=== PATIENT | male | born 2000 | race Hispanic/Latino ===

== ENCOUNTER 2018-06-27 07:41 | Emergency (ER) | payer OTHER ==
--- OUTSIDE RECORDS SUMMARY | 2018-06-27 07:43 | XMS REPORT ---
:2000 [facility] Address [address] Quach [address] [place] [id number] Care Team Providers Name Role Phone Unavailable Unavailable Unavailable Problems This patient has no known problems. Allergies, Adverse Reactions, Alerts This patient has no known allergies or adverse reactions. Medications This patient has no known medications. Encounters Start End Encounter Admission Attending Care Care Encounter Date/Time Date/Time Type Type Clinicians Facility Department ID 2017-05-02 2017-05-02 Outpatient [facility] [id number] 00:00:00 00:00:00 2017-04-18 2017-04-18 Outpatient [facility] [id number] 00:00:00 00:00:00 2017-03-21 2017-03-21 Emergency [facility] [id number] 22:44:59 22:44:59 2017-03-21 2017-03-21 Emergency [facility] [id number] 21:04:42 21:04:42
[2018-06-27] MEDS ORDERED: NA CHLORIDE 0.9% 1,000 ML ONE (08:18)
[2018-06-27 08:32] LABS: Absolute Lymphocytes (CBC) 2.2 K/uL (0.7-4.9); Absolute Monocytes 0.5 K/uL (0.1-1.3); Absolute Neutrophil 3.3 K/uL (1.8-8.0); Basophils % 0.9 % (0-1.3); Eosinophils % 1.5 % (0-4.4); Hematocrit 45.7 % (39.6-49.0); Lymphocytes % 35.8 % (15.3-44.8); MCH 29.2 pg (27.0-35.0); MCV 84.1 fL (80-100); MPV 7.7 fL (7.6-11.3); Monocytes % 8.5 % (3.3-12.3); RBC Red Blood Cell Count 5.44 M/uL (4.33-5.43)
[2018-06-27 08:49] LABS: BUN Blood Urea Nitrogen 17 mg/dL (7-18); Bicarbonate 26 mmol/L (21-32); Glucose Level 109 mg/dL (74-106); Potassium 3.8 mmol/L (3.5-5.1); Sodium Level 138 mmol/L (136-145)
--- NOTE | 2018-06-27 09:24 | EDPHYS ---
Physician Documentation [facility] Name: Britton Fontanez Age: 17 yrs Sex: Male : 2000 Arrival Date: 06/27/2018 Time: 07:43 Bed 5 Private MD: ED Physician Isra Cameron HPI: 06/27 09:20 This 17 yrs old Male presents to ER via Ambulatory with complaints of kb Nausea/Vomiting/Diarrhea, Headache. 09:20 The patient presents to the emergency department with nausea, vomiting, diarrhea, kb abdominal pain, of the abdomen diffusely. Onset: The symptoms/episode began/occurred last night. Possible causes: unknown. The symptoms are aggravated by nothing. The symptoms are alleviated by nothing. Associated signs and symptoms: Pertinent positives: abdominal pain, diarrhea, nausea, vomiting. Severity of symptoms: At their worst the symptoms were moderate in the emergency department the symptoms have improved moderately. The patient has not experienced similar symptoms in the past. The patient has not recently seen a physician. Pt reports headache, n/v/d, abd pain, and malaise since last night. States the pain and vomiting have subsided.. Historical: - Allergies: 08:03 No Known Allergies; ph - Home Meds: 08:03 unknown anxiety med [Active]; ph - PMHx: 08:03 Anxiety; ADD/ADHD; ph - PSHx: 08:03 None; ph - Immunization history:: Adult Immunizations up to date. - Social history:: Smoking status: Patient/guardian denies using tobacco. - Ebola Screening: : Patient negative for fever greater than or equal to 101.5 degrees Fahrenheit, and additional compatible Ebola Virus Disease symptoms Patient denies exposure to infectious person Patient denies travel to an Ebola-affected area in the 21 days before illness onset No symptoms or risks identified at this time. ROS: 09:16 ENT: Negative for injury, pain, and discharge, Neck: Negative for injury, pain, and kb swelling, Cardiovascular: Negative for chest pain, palpitations, and edema, Respiratory: Negative for shortness of breath, cough, wheezing, and pleuritic chest pain, Back: Negative for injury and pain, : Negative for injury, bleeding, discharge, and swelling, MS/Extremity: Negative for injury and deformity, Skin: Negative for injury, rash, and discoloration. 09:16 Constitutional: Positive for chills, fatigue, malaise, Negative for body aches, fever, poor PO intake, weight loss. 09:16 Abdomen/GI: Positive for abdominal pain, nausea, vomiting, and diarrhea, Negative for constipation, abdominal cramps, abdominal distension, anorexia. 09:16 Neuro: Positive for headache. Exam: 09:20 Constitutional: This is a well developed, well nourished patient who is awake, alert, kb and in no acute distress. Head/Face: Normocephalic, atraumatic. ENT: Nares patent. No nasal discharge, no septal abnormalities noted. Tympanic membranes are normal and external auditory canals are clear. Oropharynx with no redness, swelling, or masses, exudates, or evidence of obstruction, uvula midline. Mucous membranes moist. Neck: Trachea midline, no thyromegaly or masses palpated, and no cervical lymphadenopathy. Supple, full range of motion without nuchal rigidity, or vertebral point tenderness. No Meningismus. Chest/axilla: Normal chest wall appearance and motion. Nontender with no deformity. No lesions are appreciated. Cardiovascular: Regular rate and rhythm with a normal S1 and S2. No gallops, murmurs, or rubs. Normal PMI, no JVD. No pulse deficits. Respiratory: Lungs have equal breath sounds bilaterally, clear to auscultation and percussion. No rales, rhonchi or wheezes noted. No increased work of breathing, no retractions or nasal flaring. Abdomen/GI: Soft, non-tender, with normal bowel sounds. No distension or tympany. No guarding or rebound. No evidence of tenderness throughout. Skin: Warm, dry with normal turgor. Normal color with no rashes, no lesions, and no evidence of cellulitis. MS/ Extremity: Pulses equal, no cyanosis. Neurovascular intact. Full, normal range of motion. Neuro: Awake and alert, GCS 15, oriented to person, place, time, and situation. Cranial nerves II-XII grossly intact. Motor strength 5/5 in all extremities. Sensory grossly intact. Cerebellar exam normal. Normal gait. Vital Signs: 08:02 BP 136 / 91; Pulse 65; Resp 18; Temp 98.0; Pulse Ox 99% on R/A; Weight 92.08 kg; Height ph 5 ft. 8 in. (172.72 cm); 08:15 BP 132 / 89 Standing; Pulse 72; sg 09:07 BP 118 / 74; Pulse 62; Resp 14; Pulse Ox 100% on R/A; Pain 4/10; sg 08:02 Body Mass Index 30.87 (92.08 kg, 172.72 cm) ph MDM: 07:49 Patient medically screened. kb 09:16 Data reviewed: vital signs, nurses notes. Data interpreted: Pulse oximetry: on room air kb is 100 %. Interpretation: normal. 09:23 Counseling: I had a detailed discussion with the patient and/or guardian regarding: the kb historical points, exam findings, and any diagnostic results supporting the discharge/admit diagnosis, lab results, the need for outpatient follow up, a family practitioner, to return to the emergency department if symptoms worsen or persist or if there are any questions or concerns that arise at home. 06/27 08:02 Order name: Basic Metabolic Panel; Complete Time: 08:50 kb 06/27 08:02 Order name: CBC with Diff; Complete Time: 08:40 kb 06/27 08:02 Order name: IV Saline Lock; Complete Time: 08:08 kb 06/27 08:02 Order name: Labs collected and sent; Complete Time: 08:08 kb 06/27 08:07 Order name: Blair Screen Profile; Complete Time: 08:50 kb 06/27 08:02 Order name: Orthostatics; Complete Time: 08:47 kb 06/27 09:08 Order name: PO challenge; Complete Time: 09:32 kb Administered Medications: 08:22 Drug: NS 0.9% 1000 ml Route: IV; Rate: 1000 ml; Site: left antecubital; sg 09:00 Follow up: IV Status: Completed infusion; IV Intake: 1000ml sg Disposition: 10:27 Co-signature as Attending Physician, Isra Cameron MD. rn Disposition: 06/27/18 09:24 Discharged to Home. Impression: Nausea with vomiting, unspecified, Diarrhea, unspecified. - Condition is Stable. - Discharge Instructions: Food Choices to Help Relieve Diarrhea, Adult, Viral Gastroenteritis, Adult, [id number], Nausea and Vomiting, Adult, [id number], Diarrhea, Adult, [id number]-wd-[id number]. - Medication Reconciliation Form, Thank You Letter, Antibiotic Education, Prescription Opioid Use, Work release form form. - Follow up: Emergency Department; When: As needed; Reason: Worsening of condition. Follow up: Private Physician; When: 2 - 3 days; Reason: Recheck today's complaints, Continuance of care, Re-evaluation by your physician. Signatures: Dispatcher [employer] EDCandice Kinney, EZEKIEL SHAH-Khadar Lopes RN RN sg Isra Cameron MD MD rn Melinda Quinteros RN RN ph Corrections: (The following items were deleted from the chart) 09:39 09:24 06/27/2018 09:24 Discharged to Home. Impression: Nausea with vomiting, sg unspecified; Diarrhea, unspecified. Condition is Stable. Forms are Medication Reconciliation Form, Thank You Letter, Antibiotic Education, Prescription Opioid Use. Follow up: Emergency Department; When: As needed; Reason: Worsening of condition. Follow up: Private Physician; When: 2 - 3 days; Reason: Recheck today's complaints, Continuance of care, Re-evaluation by your physician. kb
--- NOTE | 2018-06-27 09:24 | ER ---
Nurse's Notes [facility] Name: Britton Fontanez Age: 17 yrs Sex: Male : 2000 Arrival Date: 06/27/2018 Time: 07:43 Bed 5 Private MD: Diagnosis: Nausea with vomiting, unspecified;Diarrhea, unspecified Presentation: 06/27 08:02 Presenting complaint: Patient states: N/V/D and lower abdominal pain since last night. ph Transition of care: patient was not received from another setting of care. Onset of symptoms was June 27, 2018. Risk Assessment: Do you want to hurt yourself or someone else? Patient reports no desire to harm self or others. Initial Sepsis Screen: Does the patient meet any 2 criteria? No. Patient's initial sepsis screen is negative. Does the patient have a suspected source of infection? No. Patient's initial sepsis screen is negative. Care prior to arrival: None. 08:02 Method Of Arrival: Ambulatory 08:02 Acuity: KAMERON 3 ph Historical: - Allergies: 08:03 No Known Allergies; ph - Home Meds: 08:03 unknown anxiety med [Active]; ph - PMHx: 08:03 Anxiety; ADD/ADHD; ph - PSHx: 08:03 None; ph - Immunization history:: Adult Immunizations up to date. - Social history:: Smoking status: Patient/guardian denies using tobacco. - Ebola Screening: : Patient negative for fever greater than or equal to 101.5 degrees Fahrenheit, and additional compatible Ebola Virus Disease symptoms Patient denies exposure to infectious person Patient denies travel to an Ebola-affected area in the 21 days before illness onset No symptoms or risks identified at this time. Screenin:23 Abuse screen: Denies threats or abuse. Denies injuries from another. Nutritional sg screening: No deficits noted. Tuberculosis screening: No symptoms or risk factors identified. Never had TB. Fall Risk None identified. Assessment: 08:23 General: Appears in no apparent distress. comfortable, well groomed, well developed, sg well nourished, Behavior is calm, cooperative, appropriate for age. Pain: Complains of pain in head Quality of pain is described as throbbing. Neuro: Level of Consciousness is awake, alert, obeys commands, Oriented to person, place, time, situation, [employer] are equal bilaterally Moves all extremities. Full function Gait is steady, Speech is normal, Facial symmetry appears normal, Reports headache in entire frontal area. Cardiovascular: Capillary refill is brisk in bilateral fingers Patient's skin is warm and dry. Respiratory: Airway is patent Respiratory effort is even, unlabored, Respiratory pattern is regular, symmetrical. GI: Abdomen is round non-distended, Bowel sounds present X 4 quads. Abd is soft and non tender X 4 quads. Reports diarrhea, nausea, vomiting. : No signs and/or symptoms were reported regarding the genitourinary system. EENT: No signs and/or symptoms were reported regarding the EENT system. Derm: Skin is pink, warm \T\ dry. Musculoskeletal: No signs and/or symptoms reported regarding the musculoskeletal system. Vital Signs: 08:02 BP 136 / 91; Pulse 65; Resp 18; Temp 98.0; Pulse Ox 99% on R/A; Weight 92.08 kg; Height ph 5 ft. 8 in. (172.72 cm); 08:15 BP 132 / 89 Standing; Pulse 72; sg 09:07 BP 118 / 74; Pulse 62; Resp 14; Pulse Ox 100% on R/A; Pain 4/10; sg 08:02 Body Mass Index 30.87 (92.08 kg, 172.72 cm) ph ED Course: 07:43 Patient arrived in ED. as 07:45 Candice Ramirez FNP-C is [facility]. kb 07:45 Isra Cameron MD is Attending Physician. kb 08:01 Khadar Kwong, RN is Primary Nurse. sg 08:02 Triage completed. ph 08:04 Arm band placed on Patient placed in an exam room, on a stretcher. ph 08:23 Initial lab(s) drawn, by il, sent to lab. Inserted saline lock: 20 gauge in left sg antecubital area, using aseptic technique. Blood collected. 08:25 Patient has correct armband on for positive identification. Bed in low position. Call sg light in reach. Pulse ox on. NIBP on. 09:35 No provider procedures requiring assistance completed. IV discontinued, intact, sg bleeding controlled, No redness/swelling at site. Pressure dressing applied. Administered Medications: 08:22 Drug: NS 0.9% 1000 ml Route: IV; Rate: 1000 ml; Site: left antecubital; sg 09:00 Follow up: IV Status: Completed infusion; IV Intake: 1000ml sg Intake: 09:00 IV: 1000ml; Total: 1000ml. sg Outcome: 09:24 Discharge ordered by . stacie 09:35 Discharged to home ambulatory, with family. sg 09:35 Condition: good 09:35 Discharge instructions given to patient, Instructed on discharge instructions, follow up and referral plans. safety practices, Demonstrated understanding of instructions, follow-up care. 09:39 Patient left the ED. sg Signatures: Candice Ramirez FNP-Pérez SHAH-Khadar Lopes, RN RN sg Soo Deleon Patricia, RN RN ph
== END 2018-06-27 09:39 | disposition home or self-care (01) ==
LOC: ER 07:41
DX: R19.7 Diarrhea, unspecified (principal); F41.9 Anxiety disorder, unspecified
CPT/HCPCS: 36415; 80048; 85025; 86308; 96360; 99284; J7030

== ENCOUNTER 2018-08-13 21:42 | Emergency (ER) | payer OTHER ==
--- OUTSIDE RECORDS SUMMARY | 2018-08-13 21:46 | XMS REPORT ---
:2000 [facility] Address [address] Quach [address] [place] [id number] Care Team Providers Name Role Phone Unavailable Unavailable Unavailable Problems This patient has no known problems. Allergies, Adverse Reactions, Alerts This patient has no known allergies or adverse reactions. Medications This patient has no known medications. Encounters Start End Encounter Admission Attending Care Care Encounter Date/Time Date/Time Type Type Clinicians Facility Department ID 2017-05-02 2017-05-02 Outpatient [facility] [id number] 00:00:00 00:00:00 2017-04-18 2017-04-18 Outpatient [facility] [id number] 00:00:00 00:00:00 2017-03-21 2017-03-21 Emergency [facility] [id number] 22:44:59 22:44:59 2017-03-21 2017-03-21 Emergency [facility] [id number] 21:04:42 21:04:42
[2018-08-13] MEDS ORDERED: NA CHLORIDE 0.9% 1,000 ML ONE (23:21)
[2018-08-14 00:19] LABS: Absolute Lymphocytes (CBC) 2.3 K/uL (0.7-4.9); Absolute Monocytes 0.8 K/uL (0.1-1.3); Absolute Neutrophil 8.2 K/uL (1.8-8.0); Basophils % 0.4 % (0-1.3); Eosinophils % 0.7 % (0-4.4); Hematocrit 44.6 % (39.6-49.0); Lymphocytes % 19.9 % (15.3-44.8); MPV 8.6 fL (7.6-11.3); RBC Red Blood Cell Count 5.28 M/uL (4.33-5.43)
[2018-08-14 00:28] LABS: Barbiturates NEGATIVE (NEGATIVE); Benzodiazepines NEGATIVE (NEGATIVE); Cocaine NEGATIVE (NEGATIVE); METHAMPHETAM NEGATIVE (NEGATIVE); Methadone NEGATIVE (NEGATIVE); Opiates NEGATIVE (NEGATIVE); Phencyclidine NEGATIVE (NEGATIVE); THC Cannibis NEGATIVE (NEGATIVE)
[2018-08-14 00:50] LABS: Protime INR 1.1
[2018-08-14 00:56] LABS: ALT/SGPT 36 U/L (12-78); AST/SGOT 18 U/L (15-37); Alkaline Phosphatase 74 U/L (45-117); BUN Blood Urea Nitrogen 13 mg/dL (7-18); Bicarbonate 23 mmol/L (21-32); Bilirubin Direct < 0.1 mg/dL (0-0.2); Bilirubin Total 0.3 mg/dL (0.2-1.0); Glucose Level 96 mg/dL (74-106); Lipase 100 U/L (73-393); Magnesium 2.2 mg/dL (1.8-2.4); NT PRO-BNP 5 pg/mL (<125); Potassium 3.5 mmol/L (3.5-5.1); Protein, Total 7.5 g/dL (6.4-8.2); Sodium Level 140 mmol/L (136-145); Troponin (Emerg Dept Use Only) < 0.02 ng/mL (0.0-0.045)
[2018-08-14 01:28] LABS: Urine Blood NEGATIVE (NEG); Urine Glucose NEGATIVE (NEG); Urine pH 7.5 (5.0-7.0)
[2018-08-14 01:29] LABS: Urine Protein NEGATIVE (NEG)
--- NOTE | 2018-08-14 02:05 | EDPHYS ---
Physician Documentation [facility] Name: Britton Fontaenz Age: 18 yrs Sex: Male : 2000 Arrival Date: 08/13/2018 Time: 21:46 Bed 28 Private MD: Alexi Hannon H ED Physician Matt Sumner HPI: 08/14 00:26 This 18 yrs old Male presents to ER via Ambulatory with complaints of thelma Abdominal Pain, described symptoms of a stroke. 00:26 The patient presents with abdominal pain. Onset: The symptoms/episode began/occurred thelma just prior to arrival. The patient's problem is reported as dysphasia. Onset: The symptoms/episode began/occurred just prior to arrival. Duration: This was a single incident. The symptoms are alleviated by rest, The symptoms are aggravated by. Associated signs and symptoms: Pertinent positives: dizziness, numbness, anxious. Historical: - Allergies: 08/13 22:04 No Known Allergies; fc - Home Meds: 22:04 unable to obtain [Active]; fc - PMHx: 22:04 ADD/ADHD; Anxiety; fc - PSHx: 22:04 None; fc - Immunization history:: Last tetanus immunization: unknown, Flu vaccine is up to date. - Social history:: Smoking status: Patient uses tobacco products, denies chronic smoking, but will smoke occasionally, Patient/guardian denies using alcohol, street drugs. - Ebola Screening: : Patient negative for fever greater than or equal to 101.5 degrees Fahrenheit, and additional compatible Ebola Virus Disease symptoms. - Family history:: not pertinent. ROS: 08/14 00:26 Constitutional: Negative for fever, chills, and weight loss, Eyes: Negative for injury, thelma pain, redness, and discharge, ENT: Negative for injury, pain, and discharge, Neck: Negative for injury, pain, and swelling, Cardiovascular: Negative for chest pain, palpitations, and edema, Respiratory: Negative for shortness of breath, cough, wheezing, and pleuritic chest pain, Abdomen/GI: Negative for abdominal pain, nausea, vomiting, diarrhea, and constipation, Back: Negative for injury and pain, : Negative for injury, bleeding, discharge, and swelling, MS/Extremity: Negative for injury and deformity, Skin: Negative for injury, rash, and discoloration, Neuro: Negative for headache, weakness, numbness, tingling, and seizure, Psych: Negative for depression, anxiety, suicide ideation, homicidal ideation, and hallucinations, Allergy/Immunology: Negative for hives, rash, and allergies, Endocrine: Negative for neck swelling, polydipsia, polyuria, polyphagia, and marked weight changes. Exam: 00:26 Constitutional: This is a well developed, well nourished patient who is awake, alert, thelma and in no acute distress. Head/Face: Normocephalic, atraumatic. Eyes: Pupils equal round and reactive to light, extra-ocular motions intact. Lids and lashes normal. Conjunctiva and sclera are non-icteric and not injected. Cornea within normal limits. Periorbital areas with no swelling, redness, or edema. ENT: Nares patent. No nasal discharge, no septal abnormalities noted. Tympanic membranes are normal and external auditory canals are clear. Oropharynx with no redness, swelling, or masses, exudates, or evidence of obstruction, uvula midline. Mucous membranes moist. Neck: Trachea midline, no thyromegaly or masses palpated, and no cervical lymphadenopathy. Supple, full range of motion without nuchal rigidity, or vertebral point tenderness. No Meningismus. Chest/axilla: Normal chest wall appearance and motion. Nontender with no deformity. No lesions are appreciated. Cardiovascular: Regular rate and rhythm with a normal S1 and S2. No gallops, murmurs, or rubs. Normal PMI, no JVD. No pulse deficits. Respiratory: Lungs have equal breath sounds bilaterally, clear to auscultation and percussion. No rales, rhonchi or wheezes noted. No increased work of breathing, no retractions or nasal flaring. Abdomen/GI: Soft, non-tender, with normal bowel sounds. No distension or tympany. No guarding or rebound. No evidence of tenderness throughout. Back: No spinal tenderness. No costovertebral tenderness. Full range of motion. Male : Normal genitalia with no discharge or lesions. Skin: Warm, dry with normal turgor. Normal color with no rashes, no lesions, and no evidence of cellulitis. MS/ Extremity: Pulses equal, no cyanosis. Neurovascular intact. Full, normal range of motion. Neuro: Awake and alert, GCS 15, oriented to person, place, time, and situation. Cranial nerves II-XII grossly intact. Motor strength 5/5 in all extremities. Sensory grossly intact. Cerebellar exam normal. Normal gait. Psych: Awake, alert, with orientation to person, place and time. Behavior, mood, and affect are within normal limits. 00:26 Musculoskeletal/extremity: DVT Exam: No signs of deep vein thrombosis. no pain, no swelling, no tenderness, negative Homans' sign noted on exam, no appreciated bluish discoloration, no erythema, no increased warmth. 00:28 Radiologist reports: neg x 2 [facility] Vital Signs: 08/13 21:55 BP 145 / 88; Pulse 68; Resp 18; Temp 98.6(O); Pulse Ox 98% on R/A; Weight 92.99 kg (R); fc Height 5 ft. 8 in. (172.72 cm) (R); Pain 0/10; 23:00 BP 122 / 58; Pulse 66; Resp 18; Pulse Ox 97% on R/A; rv 23:30 BP 113 / 52; Pulse 62; Resp 19; Pulse Ox 99% on R/A; rv 08/14 00:00 BP 123 / 83; Pulse 72; Resp 19; Pulse Ox 99% on R/A; rv 00:30 BP 120 / 62; Pulse 58; Resp 16; Pulse Ox 98% on R/A; rv 01:35 BP 133 / 80; Pulse 66; Resp 18; Pulse Ox 98% on R/A; rv 02:00 BP 107 / 62; Pulse 60; Resp 16 S; Pulse Ox 97% on R/A; rv 08/13 21:55 Body Mass Index 31.17 (92.99 kg, 172.72 cm) fc MDM: 08/13 23:07 Patient medically screened. [facility] 08/14 01:05 Data reviewed: vital signs, nurses notes, lab test result(s), EKG, radiologic studies, [facility] CT scan, plain films. 08/13 23:06 Order name: Urine Dipstick--Ancillary (enter results) ar5 08/13 23:09 Order name: Basic Metabolic Panel; Complete Time: 01:05 [facility] 08/13 23:09 Order name: CBC with Diff; Complete Time: 01:05 [facility] 08/13 23:09 Order name: LFT's; Complete Time: 01:05 [facility] 08/13 23:09 Order name: Magnesium; Complete Time: 01:05 [facility] 08/13 23:09 Order name: NT PRO-BNP; Complete Time: 01:05 [facility] 08/13 23:09 Order name: PT-INR; Complete Time: 01:05 [facility] 08/13 23:09 Order name: Troponin (emerg Dept Use Only); Complete Time: 01:05 [facility] 08/13 23:09 Order name: XRAY Chest (1 view) [facility] 08/13 23:09 Order name: Lipase; Complete Time: 01:05 [facility] 08/13 23:09 Order name: CT Abd/Pelvis - W/Contrast [facility] 08/13 23:09 Order name: CT Head Brain wo Cont [facility] 08/13 23:10 Order name: Urine Culture [facility] 08/13 23:11 Order name: UDS; Complete Time: 00:42 [facility] 08/13 23:09 Order name: EKG; Complete Time: 23:10 [facility] 08/13 23:09 Order name: Cardiac monitoring; Complete Time: 00:28 [facility] 08/13 23:09 Order name: EKG - Nurse/Tech; Complete Time: 00:29 [facility] 08/13 23:09 Order name: IV Saline Lock; Complete Time: 23:28 [facility] 08/13 23:09 Order name: Labs collected and sent; Complete Time: 23:28 [facility] 08/13 23:09 Order name: O2 Per Protocol; Complete Time: 23:28 [facility] 08/13 23:09 Order name: O2 Sat Monitoring; Complete Time: 23:28 [facility] 08/13 23:10 Order name: Urine Dipstick-Ancillary (obtain specimen); Complete Time: 23:27 [facility] Administered Medications: 08/13 23:15 Drug: NS 0.9% 1000 ml Route: IV; Rate: 1 bolus; Site: left antecubital; rv Disposition: 08/14/18 02:04 Discharged to Home. Impression: Anxiety disorder, unspecified, Hyperventilation. - Condition is Stable. - Discharge Instructions: Panic Attacks, Hyperventilation, Panic Attacks, [id number], Generalized Anxiety Disorder. - Prescriptions for Benadryl 25 mg Oral Capsule - take 1 capsule by ORAL route every 6 hours As needed; 30 tablet. - Medication Reconciliation Form, Thank You Letter, Antibiotic Education, Prescription Opioid Use, Work release form form. - Follow up: Alexi Hannon; When: 2 - 3 days; Reason: Recheck today's complaints, Continuance of care, Re-evaluation by your physician. - Problem is new. Signatures: Dispatcher [employer] EDMatt Lozano MD MD cha Chretien, Felicia, RN RN Buck Longoria RN RN rv Corrections: (The following items were deleted from the chart) 08/14 00:18 00:17 Splint - Wrist ordered. thelma renee 02:19 02:04 08/14/2018 02:04 Discharged to Home. Impression: Anxiety disorder, unspecified; rv Hyperventilation. Condition is Stable. Discharge Instructions: Panic Attacks, Hyperventilation, Panic Attacks, Lofz-uz-[id number], Generalized Anxiety Disorder. Prescriptions for Benadryl 25 mg Oral Capsule - take 1 capsule by ORAL route every 6 hours As needed; 30 tablet. and Forms are Medication Reconciliation Form, Thank You Letter, Antibiotic Education, Prescription Opioid Use. Follow up: Alexi Hannon; When: 2 - 3 days; Reason: Recheck today's complaints, Continuance of care, Re-evaluation by your physician. Problem is new. thelma
--- NOTE | 2018-08-14 02:05 | ER ---
Nurse's Notes [facility] Name: Britton Fontanez Age: 18 yrs Sex: Male : 2000 Arrival Date: 08/13/2018 Time: 21:46 Bed 28 Private MD: Alexi Hannon H Diagnosis: Anxiety disorder, unspecified;Hyperventilation Presentation: 08/13 21:55 Presenting complaint: Patient states: that 4 days ago he started to have lower abd pain fc and nausea but then today approx 2 hrs ago while he was sitting on the toilet he started to have shakiness, feeling faint, slurring words, and cramping in fingers. This all lasted 3-7 minutes (pt states 3-4, states 5-7). Pt is currently pain free and is having no neuro problems. Transition of care: patient was not received from another setting of care. Onset of symptoms was August 09, 2018. Risk Assessment: Do you want to hurt yourself or someone else? Patient reports no desire to harm self or others. Initial Sepsis Screen: Does the patient meet any 2 criteria? No. Patient's initial sepsis screen is negative. Does the patient have a suspected source of infection? No. Patient's initial sepsis screen is negative. Care prior to arrival: Medication(s) given: [place] Rolaids. 21:55 Method Of Arrival: Ambulatory fc 21:55 Acuity: KAMERON 3 fc Historical: - Allergies: 22:04 No Known Allergies; fc - Home Meds: 22:04 unable to obtain [Active]; fc - PMHx: 22:04 ADD/ADHD; Anxiety; fc - PSHx: 22:04 None; fc - Immunization history:: Last tetanus immunization: unknown, Flu vaccine is up to date. - Social history:: Smoking status: Patient uses tobacco products, denies chronic smoking, but will smoke occasionally, Patient/guardian denies using alcohol, street drugs. - Ebola Screening: : Patient negative for fever greater than or equal to 101.5 degrees Fahrenheit, and additional compatible Ebola Virus Disease symptoms. - Family history:: not pertinent. Screenin/28 02:05 Abuse screen: Denies threats or abuse. Denies injuries from another. Nutritional rv screening: No deficits noted. Tuberculosis screening: No symptoms or risk factors identified. Fall Risk None identified. Assessment: 01:00 General: Appears in no apparent distress. comfortable, Behavior is calm, cooperative. rv Pain: Complains of pain in abdomen Pain currently is 0 out of 10 on a pain scale. Neuro: Level of Consciousness is awake, alert, obeys commands, Oriented to person, place, time, situation. 01:00 Cardiovascular: Capillary refill < 3 seconds. Respiratory: Airway is patent. GI: Bowel rv sounds present X 4 quads. Abd is soft and non tender X 4 quads. : No signs and/or symptoms were reported regarding the genitourinary system. EENT: No signs and/or symptoms were reported regarding the EENT system. Derm: Skin is intact. Musculoskeletal: No signs and/or symptoms reported regarding the musculoskeletal system. Vital Signs: 08/13 21:55 BP 145 / 88; Pulse 68; Resp 18; Temp 98.6(O); Pulse Ox 98% on R/A; Weight 92.99 kg (R); Height 5 ft. 8 in. (172.72 cm) (R); Pain 0/10; 23:00 BP 122 / 58; Pulse 66; Resp 18; Pulse Ox 97% on R/A; rv 23:30 BP 113 / 52; Pulse 62; Resp 19; Pulse Ox 99% on R/A; rv 08/14 00:00 BP 123 / 83; Pulse 72; Resp 19; Pulse Ox 99% on R/A; rv 00:30 BP 120 / 62; Pulse 58; Resp 16; Pulse Ox 98% on R/A; rv 01:35 BP 133 / 80; Pulse 66; Resp 18; Pulse Ox 98% on R/A; rv 02:00 BP 107 / 62; Pulse 60; Resp 16 S; Pulse Ox 97% on R/A; rv 08/13 21:55 Body Mass Index 31.17 (92.99 kg, 172.72 cm) ED Course: 08/13 21:46 Patient arrived in ED. es 21:47 Alexi Hannon MD is Private Physician. es 21:55 Arm band placed on Patient placed in an exam room, on a stretcher. 22:01 Triage completed. 23:07 Matt Sumner MD is Attending Physician. [facility] 23:24 X-ray completed. Portable x-ray completed in exam room. Patient tolerated procedure tm4 well. 23:25 XRAY Chest (1 view) In Process Unspecified. EDMS 23:28 UDS Sent. rv 23:57 Radiology exam delayed due to lab results not completed at this time. (BUN/Creatinine). kw1 08/14 00:19 Radiology exam delayed due to lab results not completed at this time. (BUN/Creatinine) kw1 Spoke with attending nurse who is going to call lab regarding delay of creatinine results. 00:50 Radiology exam delayed due to lab results not completed at this time. (BUN/Creatinine). kw1 01:00 Inserted saline lock: 20 gauge in left antecubital area, using aseptic technique. rv 01:[address] via wheelchair. kw1 01:26 CT Head Brain wo Cont In Process Unspecified. EDMS 01:26 CT completed. Patient tolerated procedure well. Patient moved back from CT. kw1 01:29 CT Abd/Pelvis - W/Contrast In Process Unspecified. EDMS 02:04 Alexi Hannon MD is Referral Physician. thelma 02:05 Patient has correct armband on for positive identification. Bed in low position. Call rv light in reach. Side rails up X 1. Adult w/ patient. tare man on. Pulse ox on. NIBP on. 02:17 No provider procedures requiring assistance completed. IV discontinued, bleeding rv controlled, No redness/swelling at site. Pressure dressing applied. Administered Medications: 08/13 23:15 Drug: NS 0.9% 1000 ml Route: IV; Rate: 1 bolus; Site: left antecubital; rv Outcome: 08/14 02:04 Discharge ordered by . thelma 02:18 Discharged to home ambulatory. rv 02:18 Condition: good 02:18 Discharge instructions given to patient, Instructed on discharge instructions, follow up and referral plans. medication usage, Demonstrated understanding of instructions, follow-up care, medications, Prescriptions given X 1. 02:19 Patient left the ED. rv Signatures: Dispatcher [employer] Matt Francis MD MD cha Salyer, Edna es Marroquin, Tracy tm4 Solange Montero, RN RN Yani Cano kw1 Buck Arias RN RN rv
--- NOTE | 2018-08-14 07:58 | EKG ---
Test Date: 2018-08-13 Test Time: 23:43:22 Sign Language Instructor: MEASUREMENT RESULTS: Intervals: Rate: 62 MS: 150 QRSD: 96 QT: 398 QTc: 403 [place]: P: 28 MS: 150 QRS: 73 T: 18 INTERPRETIVE STATEMENTS: Normal sinus rhythm with sinus arrhythmia Normal ECG No previous ECG available for comparison Electronically Signed On 08-14-18 07:52:54 [employer] by Kalin Chaves
--- NOTE | 2018-08-14 08:44 | RAD REPORT ---
EXAM DESCRIPTION: CTAbdomen Pelvis W Contrast - 08/14/2018 3:18 am CLINICAL HISTORY: Abdominal pain. ABD PAIN COMPARISON: No comparisons TECHNIQUE: Biphasic CT imaging of the abdomen and pelvis was performed with 100 ml non-ionic IV cont rast. All CT scans are performed using dose optimization technique as appropriate and may include automated exposure control or mA/KV adjustment according to patient size. FINDINGS: The lung bases are clear. The liver demonstrates diffuse fatty infiltration. A small 13 mm low-density lesion is seen in segmen t 4B of the liver, incompletely assessed. The spleen, pancreas, adrenal glands and kidneys are within normal limits. No bowel obstruction, free air, free fluid or abscess. The appendix is normal. No evidence of signi ficant lymphadenopathy. No suspicious bony findings. IMPRESSION: No acute intra-abdominal or pelvic finding. Mild fatty liver with 13 mm low-density lesions seen, nonspecific. Most likely findings are benign, n onemergent MR liver protocol could be obtained if further assessment is clinically desired.
--- NOTE | 2018-08-14 08:45 | RAD REPORT ---
EXAM DESCRIPTION: CT - Head Brain Wo Cont - 08/14/2018 3:17 am CLINICAL HISTORY: SLURRED SPEECH TIA, headache, drowsiness. COMPARISON: No comparisons TECHNIQUE: All CT scans are performed using dose optimization technique as appropriate and may inclu de automated exposure control or mA/KV adjustment according to patient size. FINDINGS: No intracranial hemorrhage, hydrocephalus or extra-axial fluid collection.No areas of brai n edema or evidence of midline shift. The paranasal sinuses and mastoids are clear. The calvarium is intact. IMPRESSION: No acute intracranial abnormality.
--- NOTE | 2018-08-14 08:54 | RAD REPORT ---
EXAM DESCRIPTION: RAD - Chest Single View - 08/13/2018 11:27 pm CLINICAL HISTORY: COUGH Chest pain. COMPARISON: No comparisons FINDINGS: Portable technique limits examination quality. The lungs are grossly clear. The heart is normal in size. No displaced fractures. IMPRESSION: No acute intrathoracic process suspected.
== END 2018-08-14 02:19 | disposition home or self-care (01) ==
LOC: ER 21:42
DX: R06.4 Hyperventilation (principal); F41.9 Anxiety disorder, unspecified; Z72.0 Tobacco use
CPT/HCPCS: 36415; 70450; 71045; 74177; 80048; 80076; 80307 ×8; 81003; 83690; 83735; 83880; 84484; 85025; 85610; 87088; 93005; 99285; J7030; Q9967; 87086

== ENCOUNTER 2018-11-22 08:29 | Emergency (ER) | payer OTHER ==
--- OUTSIDE RECORDS SUMMARY | 2018-11-22 08:40 | XMS REPORT ---
:2000 [facility] Address [address] [place] [address] [address] Care Team Providers Name Role Phone Unavailable Unavailable Unavailable Problems This patient has no known problems. Allergies, Adverse Reactions, Alerts This patient has no known allergies or adverse reactions. Medications This patient has no known medications. Encounters Start End Encounter Admission Attending Care Care Encounter Date/Time Date/Time Type Type Clinicians Facility Department ID 2017-05-02 2017-05-[address] [facility] [id number] 00:00:00 00:00:00 2017-04-18 2017-04-[address] [facility] [id number] 00:00:00 00:00:00 2017-03-21 2017-03-[address] [facility] [id number] 22:44:59 22:44:59 2017-03-21 2017-03-21 Emergency [facility] [id number] 21:04:42 21:04:42
[2018-11-22] MEDS ORDERED: NA CHLORIDE 0.9% 1,000 ML ONE (09:13)
[2018-11-22 09:32] LABS: Absolute Lymphocytes (CBC) 1.4 K/uL (0.7-4.9); Absolute Monocytes 0.5 K/uL (0.1-1.3); Absolute Neutrophil 7.3 K/uL (1.8-8.0); Basophils % 0.7 % (0-1.3); Eosinophils % 0.2 % (0-4.4); Hematocrit 43.3 % (39.6-49.0); Lymphocytes % 15.5 % (15.3-44.8); MPV 7.6 fL (7.6-11.3); Monocytes % 5.4 % (3.3-12.3); RBC Red Blood Cell Count 5.12 M/uL (4.33-5.43)
[2018-11-22] MEDS ORDERED: ONDANSETRON 4 MG/2 ML VIAL ONE (09:40)
[2018-11-22 10:00] LABS: Albumin 4.3 g/dL (3.4-5.0); Bilirubin Direct 0.1 mg/dL (0-0.2); Bilirubin Total 0.5 mg/dL (0.2-1.0); Potassium 3.6 mmol/L (3.5-5.1); Protein, Total 8.2 g/dL (6.4-8.2)
--- NOTE | 2018-11-22 10:31 | EDPHYS ---
Physician Documentation [facility] Name: Britton Fontanez Age: 18 yrs Sex: Male : 2000 Arrival Date: 11/22/2018 Time: 08:33 Bed 19 Private MD: ED Physician Toby Martinez HPI: 11/22 09:30 This 18 yrs old Male presents to ER via Ambulatory with complaints of kdr Vomiting, Abdominal Pain, Headache. 09:30 The patient presents to the emergency department with nausea, that is mild, vomiting, kdr that is intermittent, abdominal pain, of the epigastric area. Onset: The symptoms/episode began/occurred last night. Possible causes: unknown. The symptoms are aggravated by food , The symptoms are alleviated by nothing. Associated signs and symptoms: The patient has no apparent associated signs or symptoms. Severity of symptoms: At their worst the symptoms were mild moderate just prior to arrival, in the emergency department the symptoms have improved mildly. The patient has not experienced similar symptoms in the past. The patient has not recently seen a physician. Historical: - Allergies: 08:50 No Known Allergies; iw - Home Meds: 08:50 Zoloft Oral once daily [Active]; iw - PMHx: 08:50 ADD/ADHD; Anxiety; iw - PSHx: 08:50 None; iw - Immunization history:: Adult Immunizations not up to date. - Social history:: Smoking status: Patient/guardian denies using tobacco. - Ebola Screening: : Patient negative for fever greater than or equal to 101.5 degrees Fahrenheit, and additional compatible Ebola Virus Disease symptoms Patient denies exposure to infectious person Patient denies travel to an Ebola-affected area in the 21 days before illness onset No symptoms or risks identified at this time. ROS: 09:30 Constitutional: Negative for fever, chills, and weight loss, Eyes: Negative for injury, kdr pain, redness, and discharge, ENT: Negative for injury, pain, and discharge, Neck: Negative for injury, pain, and swelling, Cardiovascular: Negative for chest pain, palpitations, and edema, Respiratory: Negative for shortness of breath, cough, wheezing, and pleuritic chest pain, Back: Negative for injury and pain, : Negative for injury, bleeding, discharge, and swelling, MS/Extremity: Negative for injury and deformity, Skin: Negative for injury, rash, and discoloration, Neuro: Negative for headache, weakness, numbness, tingling, and seizure activity. Psych: Negative for depression, anxiety, suicide ideation, homicidal ideation, and hallucinations, Allergy/Immunology: Negative for hives, rash, and allergies, Endocrine: Negative for neck swelling, polydipsia, polyuria, polyphagia, and marked weight changes, Hematologic/Lymphatic: Negative for swollen nodes, abnormal bleeding, and unusual bruising. 09:30 Abdomen/GI: Positive for abdominal pain, nausea and vomiting, Negative for constipation, abdominal cramps, abdominal distension, anorexia, dysphagia, hematemesis, black/tarry stool, rectal pain, rectal bleeding. Exam: 09:30 Constitutional: This is a well developed, well nourished patient who is awake, alert, kdr and in no acute distress. Head/Face: Normocephalic, atraumatic. Eyes: Pupils equal round and reactive to light, extra-ocular motions intact. Lids and lashes normal. Conjunctiva and sclera are non-icteric and not injected. Cornea within normal limits. Periorbital areas with no swelling, redness, or edema. Neck: Trachea midline, no thyromegaly or masses palpated, and no cervical lymphadenopathy. Supple, full range of motion without nuchal rigidity, or vertebral point tenderness. No Meningismus. Chest/axilla: Normal chest wall appearance and motion. Nontender with no deformity. No lesions are appreciated. Cardiovascular: Regular rate and rhythm with a normal S1 and S2. No gallops, murmurs, or rubs. Normal PMI, no JVD. No pulse deficits. Respiratory: Lungs have equal breath sounds bilaterally, clear to auscultation and percussion. No rales, rhonchi or wheezes noted. No increased work of breathing, no retractions or nasal flaring. Back: No spinal tenderness. No costovertebral tenderness. Full range of motion. Skin: Warm, dry with normal turgor. Normal color with no rashes, no lesions, and no evidence of cellulitis. MS/ Extremity: Pulses equal, no cyanosis. Neurovascular intact. Full, normal range of motion. Neuro: Awake and alert, GCS 15, oriented to person, place, time, and situation. Cranial nerves II-XII grossly intact. Motor strength 5/5 in all extremities. Sensory grossly intact. Cerebellar exam normal. Normal gait. Psych: Awake, alert, with orientation to person, place and time. Behavior, mood, and affect are within normal limits. 09:30 Abdomen/GI: Inspection: abdomen appears normal, Bowel sounds: normal, Palpation: soft, mild abdominal tenderness, in the epigastric area. Vital Signs: 08:50 BP 144 / 94; Pulse 73; Resp 16; Temp 98.4(O); Pulse Ox 98% on R/A; Weight 90.72 kg; iw Height 5 ft. 8 in. (172.72 cm); Pain 7/10; 09:39 BP 145 / 77; Pulse 77; Resp 17; Temp 97.8(O); Pulse Ox 99% on R/A; mh5 08:50 Body Mass Index 30.41 (90.72 kg, 172.72 cm) iw MDM: 09:30 Data reviewed: vital signs, nurses notes, lab test result(s). Counseling: I had a kdr detailed discussion with the patient and/or guardian regarding: the historical points, exam findings, and any diagnostic results supporting the discharge/admit diagnosis, lab results, the need for outpatient follow up. 10:30 Patient medically screened. kdr 11/22 08:53 Order name: Basic Metabolic Panel kdr 11/22 08:53 Order name: CBC with Diff kdr 11/22 08:53 Order name: Creatinine for Radiology; Complete Time: 10:29 kdr 11/22 08:53 Order name: Hepatic Function; Complete Time: 10:29 kdr 11/22 08:53 Order name: Lipase; Complete Time: 10:29 kdr 11/22 08:54 Order name: Basic Metabolic Panel; Complete Time: 10:29 EDMS 11/22 08:53 Order name: IV Saline Lock; Complete Time: 09:31 kdr 11/22 08:53 Order name: Labs collected and sent; Complete Time: 09: kdr 11/22 08:54 Order name: CBC with Automated Diff; Complete Time: 10:29 EDMS Administered Medications: 09:30 Drug: NS 0.9% 1000 ml Route: IV; Rate: 1 bolus; Site: right antecubital; sg Disposition: 11/22/18 10:30 Discharged to Home. Impression: Gastritis, unspecified, Vomiting, unspecified, Nausea and vomiting. - Condition is Stable. - Discharge Instructions: Nausea and Vomiting, Adult, [id number]. - Prescriptions for Zofran 4 mg Oral Tablet - take 1 tablet by ORAL route every 4-6 hours As needed; 10 tablet. - Work release form, Medication Reconciliation Form, Thank You Letter form. - Follow up: Private Physician; When: 2 - 3 days; Reason: If symptoms return, Further diagnostic work-up, Recheck today's complaints, Continuance of care, Re-evaluation by your physician. - Problem is new. - Symptoms have improved. Signatures: Dispatcher [employer] EDMS Khadar Kwong RN RN sg Toby Martinez MD MD kdr Minnie Juarez RN RN iw Eleonora Villanueva RN RN ss Corrections: (The following items were deleted from the chart) 10:51 10:30 11/22/2018 10:30 Discharged to Home. Impression: Gastritis, unspecified; ss Vomiting, unspecified; Nausea and vomiting. Condition is Stable. Forms are Medication Reconciliation Form, Thank You Letter, Antibiotic Education, Prescription Opioid Use. Follow up: Private Physician; When: 2 - 3 days; Reason: If symptoms return, Further diagnostic work-up, Recheck today's complaints, Continuance of care, Re-evaluation by your physician. Problem is new. Symptoms have improved. kdr 11:56 10:51 11/22/2018 10:30 Discharged to Home. Impression: Gastritis, unspecified; sg Vomiting, unspecified; Nausea and vomiting. Condition is Stable. Discharge Instructions: Nausea and Vomiting, Adult, [id number]. Prescriptions for Zofran 4 mg Oral Tablet - take 1 tablet by ORAL route every 4-6 hours As needed; 10 tablet. and Forms are Medication Reconciliation Form, Thank You Letter, Work release form. Follow up: Private Physician; When: 2 - 3 days; Reason: If symptoms return, Further diagnostic work-up, Recheck today's complaints, Continuance of care, Re-evaluation by your physician. Problem is new. Symptoms have improved. ss
--- NOTE | 2018-11-22 10:31 | ER ---
Nurse's Notes [facility] Name: Britton Fontanez Age: 18 yrs Sex: Male : 2000 Arrival Date: 11/22/2018 Time: 08:33 Bed 19 Private MD: Diagnosis: Gastritis, unspecified;Vomiting, unspecified;Nausea and vomiting Presentation: 11/22 08:48 Presenting complaint: Patient states: vomiting, abd pain, headache since last night, iw denies fever. Transition of care: patient was not received from another setting of care. Onset of symptoms was November 21, 2018. Risk Assessment: Do you want to hurt yourself or someone else? Patient reports no desire to harm self or others. Initial Sepsis Screen: Does the patient meet any 2 criteria? No. Patient's initial sepsis screen is negative. Does the patient have a suspected source of infection? No. Patient's initial sepsis screen is negative. Care prior to arrival: None. 08:48 Method Of Arrival: Ambulatory iw 08:48 Acuity: KAMERON 3 iw Historical: - Allergies: 08:50 No Known Allergies; iw - Home Meds: 08:50 Zoloft Oral once daily [Active]; iw - PMHx: 08:50 ADD/ADHD; Anxiety; iw - PSHx: 08:50 None; iw - Immunization history:: Adult Immunizations not up to date. - Social history:: Smoking status: Patient/guardian denies using tobacco. - Ebola Screening: : Patient negative for fever greater than or equal to 101.5 degrees Fahrenheit, and additional compatible Ebola Virus Disease symptoms Patient denies exposure to infectious person Patient denies travel to an Ebola-affected area in the 21 days before illness onset No symptoms or risks identified at this time. Screenin:52 Abuse screen: Denies threats or abuse. Denies injuries from another. Nutritional sg screening: No deficits noted. Tuberculosis screening: No symptoms or risk factors identified. Never had TB. Fall Risk None identified. Assessment: 08:52 General: Appears in no apparent distress. uncomfortable, slender, well groomed, well sg developed, well nourished, Behavior is calm, cooperative, appropriate for age. Pain: Complains of pain in epigastric area Quality of pain is described as aching. Neuro: Level of Consciousness is awake, alert, obeys commands, Oriented to person, place, time, situation, Moves all extremities. Speech is normal, Facial symmetry appears normal. Cardiovascular: Patient's skin is warm and dry. Respiratory: Airway is patent Respiratory effort is even, unlabored, Respiratory pattern is regular, symmetrical. GI: Abdomen is round non-distended, Reports nausea, tolerance of fluids, tolerance of food. : No signs and/or symptoms were reported regarding the genitourinary system. EENT: No signs and/or symptoms were reported regarding the EENT system. Derm: Skin is pink, warm \T\ dry. Musculoskeletal: No signs and/or symptoms reported regarding the musculoskeletal system. 10:56 Reassessment: awaiting IV fluid bolus to complete infusion prior to dc per pt request. sg Vital Signs: 08:50 BP 144 / 94; Pulse 73; Resp 16; Temp 98.4(O); Pulse Ox 98% on R/A; Weight 90.72 kg; iw Height 5 ft. 8 in. (172.72 cm); Pain 7/10; 09:39 BP 145 / 77; Pulse 77; Resp 17; Temp 97.8(O); Pulse Ox 99% on R/A; mh5 08:50 Body Mass Index 30.41 (90.72 kg, 172.72 cm) iw ED Course: 08:33 Patient arrived in ED. as 08:49 Triage completed. iw 08:50 Arm band placed on. iw 08:53 Toby Martinez MD is Attending Physician. kdr 08:58 Khadar Kwong RN is Primary Nurse. sg 09:20 Initial lab(s) drawn, by mi, sent to lab. Inserted saline lock: 20 gauge in right sg antecubital area, using aseptic technique. Blood collected. 09:49 Patient has correct armband on for positive identification. Bed in low position. Call mh5 light in reach. Adult w/ patient. Pulse ox on. NIBP on. Administered Medications: 09:30 Drug: NS 0.9% 1000 ml Route: IV; Rate: 1 bolus; Site: right antecubital; sg Outcome: 10:30 Discharge ordered by . kdr 10:51 Patient left the ED. ss 11:56 Patient left the ED. sg Signatures: Khadar Kwong RN RN Toby Martinez MD MD kdr Martinez, Amelia as Williams, Irene, RN RN iw Eleonora Villanueva, Maria Dolores Pringle RN [facility] Corrections: (The following items were deleted from the chart) 09:39 08:42 GI: Abdomen is flat, non-distended, Reports tolerance of fluids, tolerance of sg food, sg :40 08:42 General: Appears in no apparent distress. uncomfortable, slender, well groomed, sg well developed, well nourished, Behavior is calm, cooperative, appropriate for age, sg :40 08:42 Pain: Complains of pain in epigastric area Quality of pain is described as sg aching, sg :40 08:42 Neuro: Level of Consciousness is awake, alert, obeys commands, Oriented to sg person, place, time, situation, Moves all extremities. Speech is normal, Facial symmetry appears normal, sg :40 08:42 Cardiovascular: Patient's skin is warm and dry. sg sg :40 08:42 Respiratory: Airway is patent Respiratory effort is even, unlabored, Respiratory sg pattern is regular, symmetrical, sg : 08:42 : No signs and/or symptoms were reported regarding the genitourinary system. sg sg :40 08:42 EENT: No signs and/or symptoms were reported regarding the EENT system. sg sg :40 08:42 Derm: Skin is pink, warm \T\ dry. sg sg :40 08:42 Musculoskeletal: No signs and/or symptoms reported regarding the musculoskeletal sg system. sg :40 08:42 GI: Abdomen is flat, non-distended, Reports nausea, tolerance of fluids, sg tolerance of food, sg 09:49 09:39 Pulse 77bpm; Resp 17bpm; Pulse Ox 99% RA; Temp 97.8F Oral; mh5 mh5
== END 2018-11-22 11:56 | disposition home or self-care (01) ==
LOC: ER 08:29
DX: K29.70 Gastritis, unspecified, without bleeding (principal); F41.9 Anxiety disorder, unspecified
CPT/HCPCS: 85025; 80048; 36415; 80076; 83690; 99284; J7030; J2405

== ENCOUNTER 2019-12-02 15:35 | Emergency (ER) | payer OTHER ==
--- OUTSIDE RECORDS SUMMARY | 2019-12-02 15:38 | XMS REPORT | Summary of Care ---
:2000 Author Organization [facility] - Health Address [address] [place] [id number] Care Team Providers Name Role Phone Pérez Mi MD Primary Care Provider Reason for Visit Reason Comments Notification health maintenance Encounter Details Date Type Department Care Team Description 02/23/2019 Telephone [facility] Health Wellness Jed Mi III, N otification (health and Outreach MD maintenance) [address] [place] [address] [facility] [address] [place] [phone] Allergies No Known Allergiesdocumented as of this encounter (statuses as of 02/23/2019) Medications Medication Sig Dispensed Refills Start Date End Date Status methylphenidate HCl 18 mg Take 18 mg by 0 Active 24 hr tablet mouth every morning. amitriptyline 25 mg Take 25 mg by 0 Active tablet mouth at bedtime. SERTraline 50 mg Take 1 tablet 90 tablet 3 10/27/2018 Active tabletIndications: by mouth at Anxiety bedtime. documented as of this encounter (statuses as of 02/23/2019) Active Problems No known active problemsdocumented as of this encounter (statuses as of 02/23/2019) Social History Tobacco Use Types Packs/Day Years Used Date Never Assessed Sex Assigned at Date Recorded Not on file Job Start Date Occupation Industry Not on file Not on file Not on file Travel History Travel Start Travel End No recent travel history available. documented as of this encounter Last Filed Vital Signs Not on filedocumented in this encounter Plan of Treatment Health Maintenance Due Date Last Done Comments MENINGOCOCCAL B VACCINES (1 of 2 - 2008 Risk Bexsero 2-dose series) VARICELLA VACCINES (1 of 2 - 13+ 2011 2-dose series) HPV VACCINES (1 - Male 3-dose 2013 series) DTaP,Tdap,and Td Vaccines (1 - 2017 Tdap) INFLUENZA VACCINE 03/18/2019 MENINGOCOCCAL VACCINE Aged Out No longer eligible based on patient's age to complete this topic PNEUMOCOCCAL 0-64 YEARS COMBINED Aged Out No longer eligible based on SERIES patient's age to complete this topic documented as of this encounter Results Not on filedocumented in this encounter Insurance Payer Benefit Plan / Subscriber ID Effective Dates Phone Addre ss Type Group MEDICARE MEDICARE PART xxxxxxxxxxx 2018-Ish [phone] Medicare A & B t 2 [id number] [place] [id number] [facility] MEDICAID OF xxxxxxxxx 2018-Ish [phone] Medicaid [place] t 0 [id number] [place] [address] documented as of this encounter
--- OUTSIDE RECORDS SUMMARY | 2019-12-02 15:38 | XMS REPORT | Clinical Summary ---
:2000 Author Organization [facility] Dist[facility] ict Address [facility] [place] [address] Care Team Providers Name Role Phone Unavailable Primary Care Provider Unavailable Allergies No Known Allergies Medications Medication Sig Dispensed Refills Start Date End Date Status naproxen (NAPROSYN) Take 1 tablet by 30 tablet 0 03/22/2017 Active 500 mg tablet mouth 2 times daily (with meals). acetaminophen-codeine Take 1 tablet by 17 tablet 0 03/22/2017 Active (TYLENOL/CODEINE #3) mouth every 4 300-30 mg per tablet hours as needed for Pain. 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 Last Filed Vital Signs Not on file Plan of Treatment Health Maintenance Due Date Last Done Comments IMM Influenza Seasonal Apr to September (>/= 19 yrs) 04/17/2020 Results Not on fileafter 12/01/2018 Insurance Payer Benefit Plan / Subscriber ID Effective Dates Phone Addre ss Type Group [facility] xxxxxxxxx 2016-Ish [phone] [address] [facility] t 0 [id number] [employer] [place] [address]
[2019-12-02] MEDS ORDERED: NA CHLORIDE 0.9% 1,000 ML ONE (15:57)
[2019-12-02] MEDS ORDERED: LORazepam 2 MG/ML VIAL ONE (15:57)
[2019-12-02 16:10] LABS: Absolute Lymphocytes (CBC) 1.3 K/uL (0.7-4.9); Basophils % 1.1 % (0-1.3); Hematocrit 46.4 % (39.6-49.0); Lymphocytes % 9.5 % (15.3-44.8); MPV 8.2 fL (7.6-11.3); RBC Red Blood Cell Count 5.61 M/uL (4.33-5.43)
[2019-12-02 16:26] LABS: BUN Blood Urea Nitrogen 7 mg/dL (7-18); Bicarbonate 22 mmol/L (21-32); Glucose Level 99 mg/dL (74-106); Potassium 3.6 mmol/L (3.5-5.1); Sodium Level 140 mmol/L (136-145); Troponin (Emerg Dept Use Only) < 0.02 ng/mL (0.0-0.045)
--- NOTE | 2019-12-02 16:43 | RAD REPORT ---
EXAM DESCRIPTION: Fidel Single View12/02/2019 4:08 pm CLINICAL HISTORY: Chest pain COMPARISON: 2019 FINDINGS: The lungs appear clear of acute infiltrate. The heart is normal size IMPRESSION: No acute abnormalities displayed
--- NOTE | 2019-12-02 17:22 | ER ---
Nurse's Notes [facility] Name: Britton Fontanez Age: 19 yrs Sex: Male : 2000 Arrival Date: 12/02/2019 Time: 15:37 Bed 6 Private MD: Diagnosis: Chest pain, unspecified;Anxiety disorder, unspecified Presentation: 12/01 15:42 Chief complaint: Patient states: left-sided chest pain that began today around 0900. Pt aa5 denies nausea/vemiting, denies cough, denies SOB. Coronavirus screen: Proceed with normal triage. Patient denies a cough. Patient denies shortness of breath or difficulty breathing. Patient denies measured and/or subjective temperature greater than 100.4F prior to today's visit. Patient denies travel on a cruise ship or to a country the [facility] 2[place] currently lists as an affected area. Patient denies contact with known and/or suspected case of COVID-19. Ebola Screen: Patient negative for fever greater than or equal to 101.5 degrees Fahrenheit, and additional compatible Ebola Virus Disease symptoms. Initial Sepsis Screen: Does the patient meet any 2 criteria? RR > 20 per min. HR > 90 bpm. Yes Does the patient have a suspected source of infection? No. Patient's initial sepsis screen is negative. Risk Assessment: Do you want to hurt yourself or someone else? Patient reports no desire to harm self or others. Onset of symptoms was December 02, 2019. 15:42 Method Of Arrival: Ambulatory aa5 15:42 Acuity: KAMERON 3 aa5 Historical: - Allergies: 15:42 No Known Allergies; aa5 - PMHx: 15:42 ADD/ADHD; Anxiety; aa5 - PSHx: 15:42 None; aa5 - Immunization history:: Adult Immunizations up to date. Screenin:50 Abuse screen: Denies threats or abuse. Nutritional screening: No deficits noted. rb1 Tuberculosis screening: No symptoms or risk factors identified. Fall Risk None identified. Assessment: 15:50 General: Appears in no apparent distress. comfortable, Behavior is calm, cooperative, rb1 Denies fever. Pain: Complains of pain in chest Pain began 0900. Neuro: Level of Consciousness is awake, alert, obeys commands, Oriented to person, place, time, situation. Cardiovascular: Capillary refill < 3 seconds. Respiratory: Airway is patent Respiratory effort is even, unlabored, Respiratory pattern is regular, symmetrical. GI: No signs and/or symptoms were reported involving the gastrointestinal system. : No signs and/or symptoms were reported regarding the genitourinary system. Derm: Skin is pink, warm \T\ dry. Musculoskeletal: Range of motion: intact in all extremities. 15:50 Pain: Pain does not radiate. rb1 16:50 Reassessment: Patient appears in no apparent distress at this time. Patient and/or rb1 family updated on plan of care and expected duration. Pain level reassessed. Patient is alert, oriented x 3, equal unlabored respirations, skin warm/dry/pink. 17:50 Reassessment: Patient appears in no apparent distress at this time. No changes from rb1 previously documented assessment. Patient states symptoms have improved. Vital Signs: 15:42 BP 138 / 96; Pulse 112; Resp 22 S; Temp 98.3(O); Pulse Ox 100% on R/A; aa5 16:32 BP 123 / 73; Pulse 101; Resp 20; Pulse Ox 100% ; rb1 17:30 BP 128 / 67; Pulse 79; Resp 19; Pulse Ox 98% on R/A; rb1 ED Course: 15:37 Patient arrived in ED. ag5 15:38 Candice Ramirez FNP-C [facility] kb 15:38 Isra Cameron MD is Attending Physician. kb 15:42 Arm band placed on Patient placed in an exam room, on a stretcher. aa5 15:43 Triage completed. aa5 15:44 Natalia Duque, RN is Primary Nurse. rb1 15:50 Patient has correct armband on for positive identification. Placed in gown. Bed in low rb1 position. Call light in reach. Side rails up X 1. monitor tech on. Pulse ox on. NIBP on. Warm blanket given. 15:50 EKG done, by ED staff, reviewed by Candice FALCON. 3 16:01 Initial lab(s) drawn, by ca, sent to lab. Inserted saline lock: 20 gauge in left ca1 antecubital area, using aseptic technique. Blood collected. Patient maintains SpO2 saturation greater than 95% on room air. 16:08 XRAY Chest (1 view) In Process Unspecified. EDMS 18:04 No provider procedures requiring assistance completed. IV discontinued, intact, rb1 bleeding controlled, No redness/swelling at site. Pressure dressing applied. Administered Medications: 16:22 Drug: Ativan 0.5 mg Route: IVP; Site: left antecubital; rb1 16:45 Follow up: Response: No adverse reaction; Anxiety decreased rb1 16:23 Drug: NS 0.9% 1000 ml Route: IV; Rate: 1000 ml; Site: left antecubital; rb1 17:30 Follow up: IV Status: Completed infusion rb1 Outcome: 17:20 Discharge ordered by . kb 18:04 Patient left the ED. rb1 18:04 Discharged to home ambulatory. rb1 18:04 Condition: stable 18:04 Discharge instructions given to patient, Instructed on discharge instructions, follow up and referral plans. Demonstrated understanding of instructions, follow-up care. Signatures: Dispatcher [employer] EDCandice Kinney, ALYSSA-C FLIGHT CONTROL SPECIALIST-Gerri Tello RN RN aa5 Natalia Duque RN RN rb1 [place] 3 Salome Wolf RN RN ca1 Baldomero Noriega 5 Corrections: (The following items were deleted from the chart) 15:44 15:42 Initial Sepsis Screen: Does the patient meet any 2 criteria? No. Patient's aa5 initial sepsis screen is negative. Does the patient have a suspected source of infection? No. Patient's initial sepsis screen is negative. aa5 15:44 15:42 Temp 98.3F Oral; aa5 aa5
--- NOTE | 2019-12-02 17:23 | EDPHYS ---
Physician Documentation [facility] Name: Britton Fontanez Age: 19 yrs Sex: Male : 2000 Arrival Date: 12/02/2019 Time: 15:37 Bed 6 Private MD: ED Physician Isra Cameron HPI: 12/01 16:14 This 19 yrs old Male presents to ER via Ambulatory with complaints of Chest kb Pain, Anxiety. 16:14 The patient or guardian reports chest pain that is located primarily in the anterior kb chest wall, left. The pain does not radiate. Associated signs and symptoms: The patient has no apparent associated signs or symptoms. The chest pain is described as aching. Duration: The patient or guardian reports a single episode, that is still ongoing. Modifying factors: The symptoms are alleviated by nothing. the symptoms are aggravated by nothing. Severity of pain: At its worst the pain was mild moderate in the emergency department the pain is unchanged. The patient has not experienced similar symptoms in the past. The patient has not recently seen a physician. 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 States he has a history of anxiety so it could be that, but he wanted to get checked out to be safe. Reports numbness to entire body as well. No nausea, shortness of breath, cough, fever, congestion. . Historical: - Allergies: 15:42 No Known Allergies; aa5 - PMHx: 15:42 ADD/ADHD; Anxiety; aa5 - PSHx: 15:42 None; aa5 - Immunization history:: Adult Immunizations up to date. ROS: 15:52 Constitutional: Negative for fever, chills, and weight loss, ENT: Negative for injury, kb pain, and discharge, Neck: Negative for injury, pain, and swelling, Respiratory: Negative for shortness of breath, cough, wheezing, and pleuritic chest pain, Abdomen/GI: Negative for abdominal pain, nausea, vomiting, diarrhea, and constipation, Back: Negative for injury and pain, MS/Extremity: Negative for injury and deformity, Skin: Negative for injury, rash, and discoloration. 15:52 Cardiovascular: Positive for chest pain, Negative for edema, orthopnea, palpitations, paroxysmal nocturnal dyspnea. 15:52 Neuro: Positive for numbness, diffusely. Exam: 15:52 Constitutional: This is a well developed, well nourished patient who is awake, alert, kb and in no acute distress. Head/Face: Normocephalic, atraumatic. ENT: Nares patent. No nasal discharge, no septal abnormalities noted. Tympanic membranes are normal and external auditory canals are clear. Oropharynx with no redness, swelling, or masses, exudates, or evidence of obstruction, uvula midline. Mucous membranes moist. Neck: Trachea midline, no thyromegaly or masses palpated, and no cervical lymphadenopathy. Supple, full range of motion without nuchal rigidity, or vertebral point tenderness. No Meningismus. Chest/axilla: Normal chest wall appearance and motion. Nontender with no deformity. No lesions are appreciated. Cardiovascular: Regular rate and rhythm with a normal S1 and S2. No gallops, murmurs, or rubs. Normal PMI, no JVD. No pulse deficits. Respiratory: Lungs have equal breath sounds bilaterally, clear to auscultation and percussion. No rales, rhonchi or wheezes noted. No increased work of breathing, no retractions or nasal flaring. Abdomen/GI: Soft, non-tender, with normal bowel sounds. No distension or tympany. No guarding or rebound. No evidence of tenderness throughout. Skin: Warm, dry with normal turgor. Normal color with no rashes, no lesions, and no evidence of cellulitis. MS/ Extremity: Pulses equal, no cyanosis. Neurovascular intact. Full, normal range of motion. Neuro: Awake and alert, GCS 15, oriented to person, place, time, and situation. Cranial nerves II-XII grossly intact. Motor strength 5/5 in all extremities. Sensory grossly intact. Cerebellar exam normal. Normal gait. 15:52 ECG was reviewed by the Attending Physician. Vital Signs: 15:42 BP 138 / 96; Pulse 112; Resp 22 S; Temp 98.3(O); Pulse Ox 100% on R/A; aa5 16:32 BP 123 / 73; Pulse 101; Resp 20; Pulse Ox 100% ; rb1 17:30 BP 128 / 67; Pulse 79; Resp 19; Pulse Ox 98% on R/A; rb1 MDM: 15:38 Patient medically screened. kb 15:52 Data reviewed: vital signs, nurses notes. Data interpreted: Pulse oximetry: on room air kb is 100 %. Interpretation: normal. 17:01 Counseling: I had a detailed discussion with the patient and/or guardian regarding: the kb historical points, exam findings, and any diagnostic results supporting the discharge/admit diagnosis, lab results, radiology results, the need for outpatient follow up, a family practitioner, to return to the emergency department if symptoms worsen or persist or if there are any questions or concerns that arise at home. 17:20 ED course: symptoms resolved after ativan. kb 12/01 15:45 Order name: Basic Metabolic Panel; Complete Time: 16:27 kb 12/01 15:45 Order name: CBC with Diff; Complete Time: 16:27 kb 12/01 15:45 Order name: Troponin (emerg Dept Use Only); Complete Time: 16:27 kb 12/01 15:45 Order name: XRAY Chest (1 view); Complete Time: 16:45 kb 12/01 15:45 Order name: EKG; Complete Time: 15:46 kb 12/01 15:45 Order name: Cardiac monitoring; Complete Time: 17:51 kb 12/01 15:45 Order name: EKG - Nurse/Tech; Complete Time: 15:51 kb 12/01 15:45 Order name: IV Saline Lock; Complete Time: 16:23 kb 12/01 15:45 Order name: Labs collected and sent; Complete Time: 16:23 kb 12/01 15:45 Order name: O2 Per Protocol; Complete Time: 16:23 kb 12/01 15:45 Order name: O2 Sat Monitoring; Complete Time: 16:23 kb EC:52 Rate is 113 beats/min. Rhythm is regular. QRS [place] is Normal. NH interval is normal at kb 150 msec. QRS interval is normal at 88 msec. QT interval is normal at 316 msec. Administered Medications: 16:22 Drug: Ativan 0.5 mg Route: IVP; Site: left antecubital; rb1 16:45 Follow up: Response: No adverse reaction; Anxiety decreased rb1 16:23 Drug: NS 0.9% 1000 ml Route: IV; Rate: 1000 ml; Site: left antecubital; rb1 17:30 Follow up: IV Status: Completed infusion rb1 Disposition: 18:25 Co-signature as Attending Physician, Isra Cameron MD. rn Disposition: 12/02/19 17:20 Discharged to Home. Impression: Chest pain, unspecified, Anxiety disorder, unspecified. - Condition is Stable. - Discharge Instructions: Panic Attacks, [id number]. - Medication Reconciliation Form, Thank You Letter, Antibiotic Education, Prescription Opioid Use form. - Follow up: Emergency Department; When: As needed; Reason: Worsening of condition. Follow up: Private Physician; When: 2 - 3 days; Reason: Recheck today's complaints, Continuance of care, Re-evaluation by your physician. Signatures: Dispatcher [employer] EDMD Candice Ramirez, CURTAIN CUTTER HAND-C CURTAIN CUTTER HAND-Isra Garcia MD MD rn Gerri Hilario, RN RN aa5 Natalia Duque, RN RN rb1 Corrections: (The following items were deleted from the chart) 18:04 17:20 12/02/2019 17:20 Discharged to Home. Impression: Chest pain, unspecified; Anxiety rb1 disorder, unspecified. Condition is Stable. Forms are Medication Reconciliation Form, Thank You Letter, Antibiotic Education, Prescription Opioid Use. Follow up: Emergency Department; When: As needed; Reason: Worsening of condition. Follow up: Private Physician; When: 2 - 3 days; Reason: Recheck today's complaints, Continuance of care, Re-evaluation by your physician. kb
[2019-12-02 18:14] VITALS: TEMP 98.3
[2019-12-02 18:17] VITALS: BP 128/67; O2SAT 98
--- NOTE | 2019-12-04 07:04 | EKG ---
Test Date: 2019-12-02 Test Time: 15:49:27 Bung Remover: AXEL MEASUREMENT RESULTS: Intervals: Rate: 113 AK: 150 QRSD: 88 QT: 316 QTc: 433 [place]: P: 41 AK: 150 QRS: 55 T: 6 INTERPRETIVE STATEMENTS: Sinus tachycardia Nonspecific T wave abnormality Abnormal ECG Compared to ECG 08/13/2018 23:43:22 T-wave abnormality now present Sinus rhythm no longer present Sinus arrhythmia no longer present Electronically Signed On 12-04-19 07:00:36 CDT by Kalin Chaves
== END 2019-12-02 18:04 | disposition home or self-care (01) ==
LOC: ER 15:35
DX: F41.9 Anxiety disorder, unspecified (principal)
CPT/HCPCS: 96361; 93005; 85025; 80048; 36415; 84484; 71045; 96374; 99285; J7030

== ENCOUNTER 2020-04-23 02:59 | Emergency (ER) | payer OTHER ==
[2020-04-23 04:10] LABS: Basophils % 1.1 % (0-1.3); Hematocrit 41.6 % (39.6-49.0); Lymphocytes % 40.4 % (15.3-44.8); MPV 8.4 fL (7.6-11.3); RBC Red Blood Cell Count 4.99 M/uL (4.33-5.43)
[2020-04-23 04:17] LABS: Potassium 3.1 mmol/L (3.5-5.1)
[2020-04-23 04:50] LABS: Barbiturates NEGATIVE (NEGATIVE); Benzodiazepines NEGATIVE (NEGATIVE); Cocaine NEGATIVE (NEGATIVE); METHAMPHETAM NEGATIVE (NEGATIVE); Methadone NEGATIVE (NEGATIVE); Opiates NEGATIVE (NEGATIVE); Phencyclidine NEGATIVE (NEGATIVE); THC Cannibis NEGATIVE (NEGATIVE)
--- NOTE | 2020-04-23 05:05 | EDPHYS ---
Physician Documentation [facility] Name: Britton Fontanez Age: 19 yrs Sex: Male : 2000 Arrival Date: 04/23/2020 Time: 03:00 Bed 6 Private MD: ED Physician Kahlil Smith HPI: 04/23 03:28 This 19 yrs old Male presents to ER via Ambulatory with complaints of pkl Shakiness, Breathing Difficulty. 03:28 The patient has shortness of breath at rest. Onset: The symptoms/episode began/occurred pkl just prior to arrival. Associated signs and symptoms: Pertinent positives: chest pain, dizziness, hands shaking. The patient has experienced a previous episode, approximately 3 months ago. Historical: - Allergies: 03:20 No Known Allergies; fc - Home Meds: 03:20 Zoloft 50 mg oral tab 1 tab once daily [Active]; fc - PMHx: 03:20 ADD/ADHD; Anxiety; Panic Attacks; fc - PSHx: 03:20 None; fc - Immunization history:: Last tetanus immunization: unknown, Flu vaccine is not up to date. - Social history:: Smoking status: Patient denies any tobacco usage or history of. Patient uses alcohol, occasionally. Patient/guardian denies using street drugs. ROS: 03:28 Eyes: Negative for injury, pain, redness, and discharge, ENT: Negative for injury, pkl pain, and discharge, Neck: Negative for injury, pain, and swelling, Cardiovascular: Negative for chest pain, palpitations, and edema, Respiratory: Negative for shortness of breath, cough, wheezing, and pleuritic chest pain, Abdomen/GI: Negative for abdominal pain, nausea, vomiting, diarrhea, and constipation, Back: Negative for injury and pain, : Negative for injury, bleeding, discharge, and swelling, MS/Extremity: Negative for injury and deformity, Skin: Negative for injury, rash, and discoloration, Neuro: Negative for headache, weakness, numbness, tingling, and seizure. 03:28 Psych: Positive for anxiety. Exam: 03:28 Head/Face: Normocephalic, atraumatic. Eyes: Pupils equal round and reactive to light, pkl extra-ocular motions intact. Lids and lashes normal. Conjunctiva and sclera are non-icteric and not injected. Cornea within normal limits. Periorbital areas with no swelling, redness, or edema. ENT: Nares patent. No nasal discharge, no septal abnormalities noted. Tympanic membranes are normal and external auditory canals are clear. Oropharynx with no redness, swelling, or masses, exudates, or evidence of obstruction, uvula midline. Mucous membranes moist. Neck: Trachea midline, no thyromegaly or masses palpated, and no cervical lymphadenopathy. Supple, full range of motion without nuchal rigidity, or vertebral point tenderness. No Meningismus. Chest/axilla: Normal chest wall appearance and motion. Nontender with no deformity. No lesions are appreciated. Cardiovascular: Regular rate and rhythm with a normal S1 and S2. No gallops, murmurs, or rubs. Normal PMI, no JVD. No pulse deficits. Respiratory: Lungs have equal breath sounds bilaterally, clear to auscultation and percussion. No rales, rhonchi or wheezes noted. No increased work of breathing, no retractions or nasal flaring. Abdomen/GI: Soft, non-tender, with normal bowel sounds. No distension or tympany. No guarding or rebound. No evidence of tenderness throughout. Back: No spinal tenderness. No costovertebral tenderness. Full range of motion. Skin: Warm, dry with normal turgor. Normal color with no rashes, no lesions, and no evidence of cellulitis. MS/ Extremity: Pulses equal, no cyanosis. Neurovascular intact. Full, normal range of motion. Neuro: Awake and alert, GCS 15, oriented to person, place, time, and situation. Cranial nerves II-XII grossly intact. Motor strength 5/5 in all extremities. Sensory grossly intact. Cerebellar exam normal. Normal gait. 03:28 Psych: Behavior/mood is anxious. Vital Signs: 03:00 BP 146 / 89; Pulse 86; Resp 20; Temp 98.2; Pulse Ox 100% ; Weight 95.25 kg; Height 5 fc ft. 8 in. (172.72 cm); Pain 6/10; 04:39 BP 120 / 85; Pulse 81; Resp 19; Pulse Ox 97% on R/A; rv 03:00 Body Mass Index 31.93 (95.25 kg, 172.72 cm) fc MDM: 03:23 Patient medically screened. pkl 05:01 Data reviewed: vital signs, nurses notes, EKG, radiologic studies, plain films. ED pkl course: Patient feeling better. Discussed lab. EKG and X' rays results with patient. Advised to follow up with PCP in 2 to 3 days. Patient understood instructions. 04/23 03:28 Order name: CBC with Diff; Complete Time: 04:58 pkl 04/23 03:28 Order name: Chem 7; Complete Time: 04:58 pkl 04/23 03:28 Order name: UDS; Complete Time: 04:58 pkl 04/23 03:28 Order name: XRAY CXR (1 view) pkl 04/23 03:28 Order name: EKG; Complete Time: 03:29 pkl Administered Medications: 05:14 Drug: K-Dur 40 mEq Route: PO; rv 05:14 Follow up: Response: Medication administered at discharge. rv Disposition: 04/23/20 05:05 Discharged to Home. Impression: Anxiety disorder. - Condition is Stable. - Medication Reconciliation Form, Thank You Letter, Antibiotic Education, Prescription Opioid Use, Work release form form. - Follow up: Private Physician; When: 2 - 3 days; Reason: Re-evaluation by your physician. - Problem is new. - Symptoms have improved. Signatures: Dispatcher [employer] EDMS Kahlil Smith MD MD pkl Solange Montero, RN RN Buck Arias, SILVESTRE RN rv Corrections: (The following items were deleted from the chart) 05:16 05:05 04/23/2020 05:05 Discharged to Home. Impression: Anxiety disorder. Condition is rv Stable. Forms are Medication Reconciliation Form, Thank You Letter, Antibiotic Education, Prescription Opioid Use. Follow up: Private Physician; When: 2 - 3 days; Reason: Re-evaluation by your physician. Problem is new. Symptoms have improved. pkl
--- NOTE | 2020-04-23 05:05 | ER ---
Nurse's Notes [facility] Name: Britton Fontanez Age: 19 yrs Sex: Male : 2000 Arrival Date: 04/23/2020 Time: 03:00 Bed 6 Private MD: Diagnosis: Anxiety disorder Presentation: 04/23 03:00 Chief complaint: Patient states: that at 0230 he woke up and was feeling "different". fc States that he is having left sided chest pulsing pressure, is light headed, dizzy and his hands are shaking. Coronavirus screen: Client denies travel out of the [place] in the last 14 days. Ebola Screen: Patient negative for fever greater than or equal to 101.5 degrees Fahrenheit, and additional compatible Ebola Virus Disease symptoms Patient denies exposure to infectious person. Patient denies travel to an Ebola-affected area in the 21 days before illness onset. No symptoms or risks identified at this time. Initial Sepsis Screen: Does the patient meet any 2 criteria? No. Patient's initial sepsis screen is negative. Does the patient have a suspected source of infection? No. Patient's initial sepsis screen is negative. Risk Assessment: Do you want to hurt yourself or someone else? Patient reports no desire to harm self or others. Onset of symptoms was April 23, 2020 at 02:30. 03:00 Method Of Arrival: Ambulatory 03:00 Acuity: KAMERON 3 fc Triage Assessment: 04:00 Respiratory: Reports shortness of breath Onset: The symptoms/episode began/occurred rv suddenly. 04:00 General: Appears comfortable. Respiratory: the patient reports symptoms have resolved. rv Historical: - Allergies: 03:20 No Known Allergies; fc - Home Meds: 03:20 Zoloft 50 mg oral tab 1 tab once daily [Active]; fc - PMHx: 03:20 ADD/ADHD; Anxiety; Panic Attacks; fc - PSHx: 03:20 None; fc - Immunization history:: Last tetanus immunization: unknown, Flu vaccine is not up to date. - Social history:: Smoking status: Patient denies any tobacco usage or history of. Patient uses alcohol, occasionally. Patient/guardian denies using street drugs. Screenin:00 Abuse screen: Denies threats or abuse. Nutritional screening: No deficits noted. fc Tuberculosis screening: No symptoms or risk factors identified. Fall Risk None identified. Assessment: 04:00 General: Appears comfortable, Behavior is calm, cooperative. rv 04:00 Pain: Denies pain. Neuro: Level of Consciousness is awake, alert, obeys commands, rv Oriented to person, place, time, situation. Cardiovascular: Patient's skin is warm and dry. Rhythm is sinus rhythm. Respiratory: Airway is patent Respiratory effort is even, unlabored, Breath sounds are clear bilaterally. Derm: Skin is intact. Vital Signs: 03:00 BP 146 / 89; Pulse 86; Resp 20; Temp 98.2; Pulse Ox 100% ; Weight 95.25 kg; Height 5 fc ft. 8 in. (172.72 cm); Pain 6/10; 04:39 BP 120 / 85; Pulse 81; Resp 19; Pulse Ox 97% on R/A; rv 03:00 Body Mass Index 31.93 (95.25 kg, 172.72 cm) ED Course: 03:00 Patient arrived in ED. cl3 03:00 Arm band placed on Patient placed in an exam room, on a stretcher. fc 03:00 Patient has correct armband on for positive identification. Bed in low position. Call light in reach. Side rails up X 1. personnel monitor on. Pulse ox on. NIBP on. 03:00 No provider procedures requiring assistance completed. fc 03:18 Triage completed. fc 03:23 Kahlil Smith MD is Attending Physician. pkl 03:34 Buck Arias RN is Primary Nurse. rv 03:42 XRAY CXR (1 view) In Process Unspecified. EDMS 03:45 Initial lab(s) drawn, by wi, sent to lab. EKG done, by ED staff, reviewed by Kahlil hill MD. Inserted saline lock: 20 gauge in left antecubital area, using aseptic technique. Blood collected. 05:16 IV discontinued, intact, bleeding controlled, No redness/swelling at site. Pressure rv dressing applied. Administered Medications: 05:14 Drug: K-Dur 40 mEq Route: PO; rv 05:14 Follow up: Response: Medication administered at discharge. rv Outcome: 05:05 Discharge ordered by . pkl 05:16 Discharged to home ambulatory. rv 05:16 Condition: good 05:16 Discharge instructions given to patient, Instructed on discharge instructions, follow up and referral plans. Demonstrated understanding of instructions, follow-up care. 05:16 Patient left the ED. rv Signatures: Dispatcher [employer] EDKahlil Coffman MD MD pkl Chretien, Felicia RN RN Buck Longoria RN RN Mar Mays cl3
[2020-04-23] MEDS ORDERED: POTASSIUM CL SA 10 MEQ TAB PO ONE (05:16)
[2020-04-23 05:23] VITALS: TEMP 98.2
[2020-04-23 05:25] VITALS: BP 120/85; O2SAT 97
--- NOTE | 2020-04-23 07:56 | RAD REPORT ---
EXAM DESCRIPTION: Fidel Single View04/23/2020 3:42 am CLINICAL HISTORY: Shortness of breath COMPARISON: November 2019 FINDINGS: The lungs appear clear of acute infiltrate. The heart is normal size IMPRESSION: No acute abnormalities displayed
--- NOTE | 2020-04-24 05:30 | EKG ---
Test Date: 2020-04-23 Test Time: 03:36:39 Audit Director: NICOLE MEASUREMENT RESULTS: Intervals: Rate: 72 ID: [id number] QRSD: 98 QT: 368 QTc: 402 [place]: P: 57 ID: [id number] QRS: 44 T: 16 INTERPRETIVE STATEMENTS: Normal sinus rhythm Nonspecific T wave abnormality Abnormal ECG Compared to ECG 12/02/2019 15:49:27 Sinus tachycardia no longer present T-wave abnormality still present Electronically Signed On 04-24-20 05:28:45 CDT by Kalin Chaves
--- OUTSIDE RECORDS SUMMARY | 2020-04-24 17:14 | XMS REPORT | Summary of Care ---
:2000 Author Organization [facility] - Health Address [address] [place] [address] Care Team Providers Name Role Phone MD Karen Primary Care Provider Encounter Details Date Type Department Care Team Description 02/21/2020 Orders Only [facility] Doctor Unassigned, No [address] [facility] [place] [place] [address] [address] [place] [address] Allergies No Known Allergiesdocumented as of this encounter (statuses as of 02/21/2020) Medications Medication Sig Dispensed Refills Start Date [...] as of this encounter (statuses as of 02/21/2020) Active Problems No known active problemsdocumented as of this encounter (statuses as of 02/21/2020) Social History Tobacco Use Types Packs/Day Years Used Date Never Assessed Sex Assigned at Date Recorded Not on file documented as of this encounter Last Filed Vital Signs Not on filedocumented in this encounter Plan of Treatment Date Type Specialty Care Team Description 02/21/2020 Appointment [facility] Maintenance Due Date Last Done Comments VARICELLA VACCINES (1 of 2 - 2-dose 1999 childhood series) MENINGOCOCCAL B VACCINES (1 of 2 - 2008 Risk Bexsero 2-dose series) HPV VACCINES (1 - Male 2-dose 2009 series) Depression Screening 2010 WELL CARE VISIT: 12-21 YEARS 2010 (yearly) DTaP,Tdap,and Td Vaccines (1 - 2017 Tdap) INFLUENZA VACCINE (#1) 2020 MENINGOCOCCAL VACCINE Aged Out No longer eligible based on patient's age to complete this topic PNEUMOCOCCAL 0-64 YEARS COMBINED Aged Out No longer eligible based on SERIES patient's age to complete this topic documented as of this encounter Procedures Procedure Name Priority Date/Time Associated Diagnosis Comme nts ASSIGNMENT OF BENEFITS Routine 02/21/2020 12:14 PM CDT documented in this encounter Results Not on filedocumented in this encounter Insurance Payer Benefit Plan / Subscriber ID Effective Dates Phone Addre ss Type Group [facility] [id number] 2020-Present Medicaid COMM PLAN - PLUS MANAGED MEDICAID documented as of this encounter
--- OUTSIDE RECORDS SUMMARY | 2020-04-24 17:14 | XMS REPORT | Clinical Summary ---
:2000 Author Organization [facility][1] Distr ict Address [facility] [place] [address] Care Team Providers Name Role Phone Unavailable [...] 17 yrs) 04/17/2020 Results Not on fileafter 04/23/2019 Insurance Payer Benefit Plan / Subscriber ID Effective Dates Phone Addre ss Type Group [facility] xxxxxxxxx 2016-Ish [phone] [address] [facility] t 0 [id number] [place] [address]
--- OUTSIDE RECORDS SUMMARY | 2020-04-24 17:15 | XMS REPORT | Continuity of Care Document ---
:[address] [facility] [place] [place] t Address [address] [place] [address] Care Team Providers Name Role Phone Doctor Unassigned, Name Attending Clinician Unavailable Pérez Mi MD Attending Clinician Problems Condition Condition Condition Status Onset Resolution Last Treating Co mments Source Name Details Category Date Date Treatment Clinician Date Submental Submental Disease Active [facility] space space 03-22 Health infection infection 00:00: 00 Change in Change in Disease Active [facility] voice voice 03-21 Health 00:00: 00 Fever Fever Disease Active [facility] Allergies, Adverse Reactions, Alerts This patient has no known allergies or adverse reactions. Social History Social Habit Start Date Stop Date Quantity Comments Source Sex Assigned At [facility] alth Alcohol intake 2017-03-21 2017-03-21 Current [facility] 00:00:00 00:00:00 non-drinker of alcohol (finding) Smoking Status Start Date Stop Date Source Never smoker [facility] Medications Ordered Filled Start Stop Current Ordering Indication Dosage Frequency Signature Comments Components Source Medication Medication Date Date Medication? Clinician (SIG) Name Name naproxen Yes 500mg Take 1 [place] (NAPROSYN) 03-22 tablet by [facility] 500 mg 00:00: mouth 2 tablet 00 times daily (with meals). acetaminoph Yes 1{tbl} Take 1 [place] rris en-codeine -05 tablet by [facility] (TYLENOL/CO 00:00: mouth DEINE #3) 00 every 4 300-30 mg hours as per tablet needed for Pain. Procedures This patient has no known procedures. Plan of Care Planned Activity Planned Date Details Comments Source Future Scheduled Test 2020-04-17 00:00:00 IMM Influenza [facility] Seasonal Apr to September (>/= 19 yrs) [code = IMM Influenza Seasonal Apr to September (>/= 19 yrs)] Encounters Start End Encounter Admission Attending Care Care Encounter Source Date/Time Date/Time Type Type Clinicians Facility Department ID 2020-02-21 2020-02-21 Orders Doctor TOBI [id number] 00:00:00 00:00:00 Only Unassigned, DERECK [id number] [place] [facility] [id number] 2019-02-23 2019-02-23 Telephone Jed Mi [id number] 00:00:00 00:00:00 C Cotter [id number] [place] [id number] 2017-05-02 2017-05-02 Outpatient [facility] [id number] [place] 00:00:00 00:00:00 [facility] 2017-04-18 2017-04-18 Outpatient [facility] [id number] [place] 00:00:00 00:00:00 [facility] 2017-03-21 2017-03-21 Emergency [facility] [id number] [place] 22:44:59 22:44:59 Health 2017-03-21 2017-03-21 Emergency [facility] [id number] [place] 21:04:42 21:04:42 Health Results This patient has no known results.
== END 2020-04-23 05:16 | disposition home or self-care (01) ==
LOC: ER 02:59
DX: F41.9 Anxiety disorder, unspecified (principal)
CPT/HCPCS: 36415; 71045; 80048; 80307; 85025; 93005; 99284

== ENCOUNTER 2020-07-02 00:07 | Emergency (ER) | payer OTHER ==
--- OUTSIDE RECORDS SUMMARY | 2020-07-02 00:10 | XMS REPORT | Clinical Summary ---
:2000 Author Organization [facility] Distr ict Address [facility] [place] [address] Care Team Providers Name Role Phone Unavailable Primary Care Provider Unavailable Allergies No Known Active Allergies Medications Medication Sig Dispensed Refills Start [...] Assigned at Date Recorded Not on file Last Filed Vital Signs Not on file Plan of Treatment Health Maintenance Due Date Last Done Comments IMM Influenza Seasonal Apr to September (>/= 19 yrs) 04/17/2020 Results Not on fileafter 07/02/2019 Insurance Payer Benefit Plan / Subscriber ID Effective Dates Phone Addre ss Type Group [facility] [id number] 2016-Ish [phone] [facility] t 0 [id number] [place] [address]
--- OUTSIDE RECORDS SUMMARY | 2020-07-02 00:10 | XMS REPORT | Continuity of Care Document ---
:2000 Author Organization [facility] t Address [address] [place] [address] Care Team Providers Name Role Phone Doctor [...] Health 00:00: 00 Fever Fever Disease Active [facility] Allergies, Adverse Reactions, Alerts This patient has no known allergies or adverse reactions. Social History Social Habit Start Date Stop Date Quantity Comments Source Sex Assigned At [facility] alth Alcohol intake 2017-03-21 2017-03-21 Current [facility] 00:00:00 00:00:00 non-drinker of alcohol (finding) Smoking Status Start Date Stop Date Source Never smoker [facility] Medications Ordered Filled Start Stop Current Ordering Indication Dosage Frequency Signature Comments Components Source Medication Medication Date Date Medication? Clinician (SIG) Name Name naproxen Yes 500mg Take 1 [place] (NAPROSYN) 03-22 tablet by [facility] 500 mg 00:00: mouth 2 tablet 00 times daily (with meals). acetaminoph Yes 1{tbl} Take 1 [place]awla rris en-codeine 03-22 tablet by [facility] (TYLENOL/CO 00:00: mouth DEINE #3) 00 every 4 300-30 mg hours as per tablet needed for Pain. Procedures This patient has no known procedures. Plan of Care Planned Activity Planned Date Details Comments Source Future Scheduled Test 2020-04-17 00:00:00 IMM Influenza [facility] Seasonal Apr to September (>/= 19 yrs) [code = IMM Influenza Seasonal Apr to September (>/= 19 yrs)] Encounters Start End Encounter Admission Attending Care Care Encounter Source Date/Time Date/Time Type Type Clinicians Facility Department ID 2020-02-21 2020-02-21 Orders Doctor TOBI [id number] 00:00:00 00:00:00 Only Unassigned, [place] [id number] [place] [facility] [id number] 2019-02-23 2019-02-23 Telephone Shmuel Jed Sullivan [id number] 00:00:00 00:00:00 C Cotter [id number] [place] [id number] 2017-05-02 2017-05-02 Outpatient [facility] [id number] [place] 00:00:00 00:00:[address] [facility] 2017-04-18 2017-04-18 Outpatient [facility] [id number] [place] 00:00:00 00:00:[address] [facility] 2017-03-21 2017-03-21 Emergency [facility] [id number] [place] 22:44:59 22:44:59 Health 2017-03-21 2017-03-21 Emergency [facility] [id number] [place] 21:04:42 21:04:42 Health Results This patient has no known results.
--- NOTE | 2020-07-02 00:55 | ER ---
Nurse's Notes [facility] Name: Britton Fontanez Age: 19 yrs Sex: Male : 2000 Arrival Date: 07/02/2020 Time: 00:10 Bed 13 Private MD: Diagnosis: Dizziness and giddiness Presentation: 07/02 00:16 Acuity: KAMERON 3 dm5 00:28 Chief complaint: Patient states: I have been feeling dizzy for the past 4-5 days, I jb4 have had intermittent shortness of breath for the past 2 days with numbness to my JEIMY lower arms. Coronavirus screen: Client denies travel out of the [place] in the last 14 days. Client presents with at least one sign or symptom that may indicate coronavirus-19. Standard/surgical mask placed on the client. Ebola Screen: No symptoms or risks identified at this time. Initial Sepsis Screen: Does the patient meet any 2 criteria? No. Patient's initial sepsis screen is negative. Does the patient have a suspected source of infection? No. Patient's initial sepsis screen is negative. Risk Assessment: Do you want to hurt yourself or someone else? Patient reports no desire to harm self or others. Onset of symptoms was June 26, 2020. Transition of care: patient was not received from another setting of care. 00:28 Method Of Arrival: Ambulatory jb4 Historical: - Allergies: 00:30 No Known Allergies; jb4 - Home Meds: 00:30 Zoloft 50 mg Oral tab 1 tab once daily [Active]; jb4 - PMHx: 00:30 ADD/ADHD; Anxiety; Panic Attacks; jb4 - PSHx: 00:30 None; jb4 - Immunization history:: Adult Immunizations up to date. - Social history:: Smoking status: Patient denies any tobacco usage or history of. Patient/guardian denies using alcohol, street drugs. Screenin:16 Abuse screen: Denies threats or abuse. Nutritional screening: No deficits noted. jb4 Tuberculosis screening: No symptoms or risk factors identified. Fall Risk None identified. Assessment: 00:16 General: Appears in no apparent distress. uncomfortable, Behavior is calm, cooperative, jb4 appropriate for age. Pain: Denies pain. Neuro: Level of Consciousness is awake, alert, obeys commands, Oriented to person, place, time, situation. Cardiovascular: Patient's skin is warm and dry. Respiratory: Airway is patent Respiratory effort is even, unlabored, Respiratory pattern is regular, symmetrical. GI: No signs and/or symptoms were reported involving the gastrointestinal system. : No signs and/or symptoms were reported regarding the genitourinary system. EENT: No signs and/or symptoms were reported regarding the EENT system. Derm: Skin is intact, Skin is pink, warm \T\ dry. Musculoskeletal: Circulation, motion, and sensation intact. Range of motion: intact in all extremities. 00:51 Reassessment: Patient appears in no apparent distress at this time. Patient and/or jb4 family updated on plan of care and expected duration. Pain level reassessed. Patient is alert, oriented x 3, equal unlabored respirations, skin warm/dry/pink. Informed on providers decision to do medical screening and decision not to any form of work up. Vital Signs: 00:28 BP 131 / 87; Pulse 77; Resp 16; Temp 98.6(O); Pulse Ox 100% on R/A; Weight 90.72 kg jb4 (R); Height 5 ft. 8 in. (172.72 cm) (R); Pain 0/10; 00:28 Body Mass Index 30.41 (90.72 kg, 172.72 cm) jb4 ED Course: 00:10 Patient arrived in ED. cl3 00:16 Triage completed. dm5 00:16 Patient has correct armband on for positive identification. Bed in low position. Call jb4 light in reach. Side rails up X 1. 00:17 Bryan Mackey MD is Attending Physician. tw4 00:28 Jed Tovar, SILVESTRE is Primary Nurse. jb4 00:30 Arm band placed on right wrist. jb4 00:52 No provider procedures requiring assistance completed. Patient did not have IV access jb4 during this emergency room visit. Administered Medications: No medications were administered Outcome: 00:52 Discharged to home ambulatory. jb4 00:52 Condition: stable 00:52 Discharge instructions given to patient, Instructed on discharge instructions, follow up and referral plans. Demonstrated understanding of instructions, follow-up care, Following a medical screening exam, the patient was provided information regarding alternative care sites and resources available per registration personnel. 00:54 Discharge ordered by . tw4 00:54 Patient left the ED. jb4 Signatures: Micki Pelayo RN RN dm5 Jed Tovar RN RN jb4 Bryan Mackey MD MD tw4 Mar Ulrich cl3
--- NOTE | 2020-07-02 00:55 | EDPHYS ---
Physician Documentation [facility] Name: Britton Fontanez Age: 19 yrs Sex: Male : 2000 Arrival Date: 07/02/2020 Time: 00:10 Bed 13 Private MD: ED Physician Bryan Mackey HPI: 07/02 00:48 This 19 yrs old Male presents to ER via Ambulatory with complaints of tw4 Shortness Of Breath, Numbness Of Arm. 00:48 The patient presents with dizziness. Onset: The symptoms/episode began/occurred today. tw4 Context: occurred at home. Modifying factors: The symptoms are alleviated by nothing, the symptoms are aggravated by nothing. Severity of symptoms: At their worst the symptoms were moderate in the emergency department the symptoms are unchanged. The patient has not experienced similar symptoms in the past. 00:54 Associated signs and symptoms: Pertinent positives: numbness, shortness of breath, tw4 tingling. Historical: - Allergies: 00:30 No Known Allergies; jb4 - Home Meds: 00:30 Zoloft 50 mg Oral tab 1 tab once daily [Active]; jb4 - PMHx: 00:30 ADD/ADHD; Anxiety; Panic Attacks; jb4 - PSHx: 00:30 None; jb4 - Immunization history:: Adult Immunizations up to date. - Social history:: Smoking status: Patient denies any tobacco usage or history of. Patient/guardian denies using alcohol, street drugs. ROS: 00:48 Constitutional: Negative for fever, chills, and weight loss, Eyes: Negative for injury, tw4 pain, redness, and discharge, Cardiovascular: Negative for chest pain, palpitations, and edema, Respiratory: Negative for shortness of breath, cough, wheezing, and pleuritic chest pain, Abdomen/GI: Negative for abdominal pain, nausea, vomiting, diarrhea, and constipation, Back: Negative for injury and pain, MS/Extremity: Negative for injury and deformity, Skin: Negative for injury, rash, and discoloration. 00:48 Neuro: Positive for dizziness, Negative for altered mental status, gait disturbance, headache, hearing loss, loss of consciousness, numbness, seizure activity, speech changes, syncope, near syncope, tinnitus, tremor, visual changes. Exam: 00:48 Constitutional: This is a well developed, well nourished patient who is awake, alert, tw4 and in no acute distress. Head/Face: Normocephalic, atraumatic. Chest/axilla: Normal chest wall appearance and motion. Nontender with no deformity. No lesions are appreciated. Cardiovascular: Regular rate and rhythm with a normal S1 and S2. No gallops, murmurs, or rubs. Normal PMI, no JVD. No pulse deficits. Respiratory: Lungs have equal breath sounds bilaterally, clear to auscultation and percussion. No rales, rhonchi or wheezes noted. No increased work of breathing, no retractions or nasal flaring. Abdomen/GI: Soft, non-tender, with normal bowel sounds. No distension or tympany. No guarding or rebound. No evidence of tenderness throughout. Back: No spinal tenderness. No costovertebral tenderness. Full range of motion. Skin: Warm, dry with normal turgor. Normal color with no rashes, no lesions, and no evidence of cellulitis. MS/ Extremity: Pulses equal, no cyanosis. Neurovascular intact. Full, normal range of motion. Vital Signs: 00:28 BP 131 / 87; Pulse 77; Resp 16; Temp 98.6(O); Pulse Ox 100% on R/A; Weight 90.72 kg jb4 (R); Height 5 ft. 8 in. (172.72 cm) (R); Pain 0/10; 00:28 Body Mass Index 30.41 (90.72 kg, 172.72 cm) jb4 MDM: 00:17 Patient medically screened. tw4 00:33 Data reviewed: vital signs, nurses notes. Medical screen evaluation completed. EMTALA tw4 emergency medical condition absent. 00:48 Differential diagnosis: generalized weakness, idiopathic dizziness, near-syncope. Data tw4 interpreted: Pulse oximetry: Interpretation: normal. Counseling: I had a detailed discussion with the patient and/or guardian regarding: the historical points, exam findings, and any diagnostic results supporting the discharge/admit diagnosis. Special discussion: I discussed with the patient/guardian in detail that at this point there is no indication for admission to the hospital. It is understood, however, that if the symptoms persist or worsen the patient needs to return immediately for re-evaluation. Administered Medications: No medications were administered Disposition: 07/02/20 00:54 Discharged to Home. Impression: Dizziness and giddiness. - Condition is Stable. - Medication Reconciliation Form, Thank You Letter, Antibiotic Education, Prescription Opioid Use form. - Follow up: Private Physician; When: Upon discharge from the Emergency Department; Reason: Recheck today's complaints, Continuance of care, Re-evaluation by your physician. - Problem is an ongoing problem. - Symptoms have improved. Signatures: Jed Tovar RN RN jb4 Bryan Mackey MD MD tw4 Corrections: (The following items were deleted from the chart) 00:54 00:48 Associated signs and symptoms: The patient has no apparent associated signs or tw4 symptoms, tw4 00:54 00:54 07/02/2020 00:54 Discharged to Home. Impression: Dizziness and giddiness. jb4 Condition is Stable. Forms are Medication Reconciliation Form, Thank You Letter, Antibiotic Education, Prescription Opioid Use. Follow up: Private Physician; When: Upon discharge from the Emergency Department; Reason: Recheck today's complaints, Continuance of care, Re-evaluation by your physician. Problem is an ongoing problem. Symptoms have improved. tw4
[2020-07-03 23:53] VITALS: BP 131/87; TEMP 98.6; O2SAT 100
== END 2020-07-02 00:54 | disposition home or self-care (01) ==
LOC: ER 00:07
DX: R42 Dizziness and giddiness (principal); R06.02 Shortness of breath; F41.9 Anxiety disorder, unspecified
CPT/HCPCS: 99281

== ENCOUNTER 2020-09-09 20:17 | Emergency (ER) | payer OTHER ==
--- OUTSIDE RECORDS SUMMARY | 2020-09-09 20:20 | XMS REPORT | Continuity of Care Document ---
:2000 Author Organization [facility] t Address [address] [place] [address] Care Team Providers Name Role Phone Doctor Unassigned, Name Attending Clinician Unavailable Pérez Mi MD Attending Clinician Problems Condition Condition Condition Status Onset Resolution Last Treating Co mments Source Name Details Category Date Date Treatment Clinician Date Submental Submental Disease Active [facility] space space 03-22 Health infection infection 00:00: 00 Change in Change in Disease Active [facility] ris voice voice 03-21 Health 00:00: 00 Fever Fever Disease Active [facility] Allergies, Adverse Reactions, Alerts This patient has no known allergies or adverse reactions. Social History Social Habit Start Date Stop Date Quantity Comments Source Sex Assigned At [facility] alth Alcohol intake 2017-03-21 2017-03-21 Current [facility] 00:00:00 00:00:00 non-drinker of alcohol (finding) Smoking Status Start Date Stop Date Source Never smoker [facility] Medications Ordered Filled Start Stop Current Ordering Indication Dosage Frequency Signature Comments Components Source Medication Medication Date Date Medication? Clinician (SIG) Name Name naproxen Yes 500mg Take 1 [place] (NAPROSYN) 03-22 tablet by [facility] 500 mg 00:00: mouth 2 tablet 00 times daily (with meals). acetaminoph Yes 1{tbl} Take 1 Chawla rris en-codeine 03-22 tablet by [facility] (TYLENOL/CO 00:00: mouth DEINE #3) 00 every 4 300-30 mg hours as per tablet needed for Pain. Procedures This patient has no known procedures. Plan of Care Planned Activity Planned Date Details Comments Source Future Scheduled Test 2020-04-17 00:00:[address] [facility] Seasonal Apr to September (>/= 19 yrs) [code = IMM Influenza Seasonal Apr to September (>/= 19 yrs)] Encounters Start End Encounter Admission Attending Care Care Encounter Source Date/Time Date/Time Type Type Clinicians Facility Department ID 2020-02-21 2020-02-21 Orders Doctor TOBI [id number] 00:00:00 00:00:00 Only Unassigned, [place] [id number] [place] [facility] [id number] 2019-02-23 2019-02-23 Telephone Jed Mi [id number] 00:00:00 00:00:00 C [place] [id number] [place] [id number] 2017-05-02 2017-05-02 Outpatient [facility] [id number] [place] 00:00:00 00:00:00 [facility] 2017-04-18 2017-04-18 Outpatient [facility] [id number] [place] 00:00:00 00:00:00 [facility] 2017-03-21 2017-03-21 Emergency [facility] [id number] [place] 22:44:59 22:44:59 Health 2017-03-21 2017-03-21 Emergency [facility] [id number] [place] 21:04:42 21:04:42 Health Results This patient has no known results.
[2020-09-09 22:29] LABS: Absolute Lymphocytes (CBC) 2.1 K/uL (0.7-4.9); Basophils % 0.5 % (0-1.3); Hematocrit 43.7 % (39.6-49.0); Lymphocytes % 22.7 % (15.3-44.8); MPV 7.8 fL (7.6-11.3); RBC Red Blood Cell Count 5.21 M/uL (4.33-5.43)
[2020-09-09 22:44] LABS: Protime INR 1.11
[2020-09-09 23:02] LABS: ALT/SGPT 51 U/L (12-78); AST/SGOT 20 U/L (15-37); Albumin 4.5 g/dL (3.4-5.0); Alkaline Phosphatase 78 U/L (45-117); BUN Blood Urea Nitrogen 10 mg/dL (7-18); Bicarbonate 25 mmol/L (21-32); Bilirubin Direct 0.2 mg/dL (0-0.2); Bilirubin Total 0.7 mg/dL (0.2-1.0); Glucose Level 80 mg/dL (74-106); Magnesium 2.1 mg/dL (1.8-2.4); NT PRO-BNP 9 pg/mL (<125); Potassium 3.4 mmol/L (3.5-5.1); Protein, Total 8.3 g/dL (6.4-8.2); Sodium Level 140 mmol/L (136-145); Troponin (Emerg Dept Use Only) < 0.02 ng/mL (0.0-0.045)
--- NOTE | 2020-09-10 00:31 | EDPHYS ---
Physician Documentation [facility] Name: Britton Fontanez Age: 20 yrs Sex: Male : 2000 Arrival Date: 09/09/2020 Time: 20:23 Bed 25 Private MD: ED Physician Bryan Mackey HPI: 09/09 22:06 This 20 yrs old Male presents to ER via Ambulatory with complaints of Chest pm1 Pain, Dizziness, Blurred Vision. 22:06 The patient or guardian reports chest pain that is located primarily in the anterior pm1 aspect of right upper chest, anterior aspect of left upper chest and mid-sternal area. The pain does not radiate. Associated signs and symptoms: Pertinent positives:. The chest pain is described as sharp. Duration: The patient or guardian reports multiple episodes. Modifying factors: The symptoms are alleviated by moving around. Severity of pain: in the emergency department the pain has improved. The patient has not experienced similar symptoms in the past. It is unknown whether or not the patient has recently seen a physician. Historical: - Allergies: 20:43 No Known Allergies; ll1 - PMHx: 20:43 ADD/ADHD; Anxiety; Panic Attacks; ll1 - PSHx: 20:43 None; ll1 - Immunization history:: Flu vaccine is not up to date. - Social history:: Smoking status: Patient denies any tobacco usage or history of. ROS: 22:06 Constitutional: Negative for fever, chills, and weight loss, Neck: Negative for injury, pm1 pain, and swelling. 22:06 Abdomen/GI: Negative for abdominal pain, nausea, vomiting, diarrhea, and constipation, Back: Negative for injury and pain. 22:06 MS/Extremity: Negative for injury and deformity, Skin: Negative for injury, rash, and discoloration. 22:06 Eyes: Positive for blurry vision. 22:06 Cardiovascular: Positive for chest pain, palpitations, Negative for edema. 22:06 Neuro: Positive for dizziness, Negative for numbness, tingling, weakness. Exam: 22:06 Constitutional: This is a well developed, well nourished patient who is awake, alert, pm1 and in no acute distress. Head/Face: Normocephalic, atraumatic. 22:06 Cardiovascular: Regular rate and rhythm with a normal S1 and S2. No gallops, murmurs, or rubs. Normal PMI, no JVD. No pulse deficits. Respiratory: Lungs have equal breath sounds bilaterally, clear to auscultation and percussion. No rales, rhonchi or wheezes noted. No increased work of breathing, no retractions or nasal flaring. Abdomen/GI: Soft, non-tender, with normal bowel sounds. No distension or tympany. No guarding or rebound. No evidence of tenderness throughout. Back: No spinal tenderness. No costovertebral tenderness. Full range of motion. Skin: Warm, dry with normal turgor. Normal color with no rashes, no lesions, and no evidence of cellulitis. MS/ Extremity: Pulses equal, no cyanosis. Neurovascular intact. Full, normal range of motion. 22:06 Chest/axilla: Inspection: normal, Palpation: tenderness, of the anterior aspect of left upper chest, that totally reproduces the patient's complaints. 22:06 Neuro: Exam negative for acute changes, Orientation: is normal, Mentation: is normal, Motor: is normal, moves all fours. Vital Signs: 20:41 BP 128 / 91; Pulse 86; Resp 17; Temp 98.8; Pulse Ox 100% ; Weight 99.79 kg; Height 5 ll1 ft. 8 in. (172.72 cm); Pain 8/10; 20:41 Body Mass Index 33.45 (99.79 kg, 172.72 cm) ll1 MDM: 22:06 Patient medically screened. pm1 09/10 00:29 Data reviewed: vital signs. Data interpreted: Pulse oximetry: on room air is 100 %. pm1 Interpretation: normal. Counseling: I had a detailed discussion with the patient and/or guardian regarding: the historical points, exam findings, and any diagnostic results supporting the discharge/admit diagnosis, lab results, radiology results, the need for outpatient follow up, to return to the emergency department if symptoms worsen or persist or if there are any questions or concerns that arise at home. 09/09 22:05 Order name: Basic Metabolic Panel pm1 09/09 22:05 Order name: CBC with Diff; Complete Time: 00:01 pm1 09/09 22:05 Order name: LFT's; Complete Time: 00:01 pm09/09 22:05 Order name: Magnesium; Complete Time: 00:01 pm1 09/09 22:05 Order name: NT PRO-BNP; Complete Time: 00:01 pm1 09/09 22:05 Order name: PT-INR; Complete Time: 00:01 pm1 09/09 22:05 Order name: Troponin (emerg Dept Use Only); Complete Time: 00:01 pm1 09/09 22:05 Order name: XRAY Chest (1 view) pm1 09/09 22:05 Order name: TSH; Complete Time: 00:01 pm1 09/09 22:06 Order name: Basic Metabolic Panel; Complete Time: 00:01 EDMS 09/09 22:05 Order name: EKG; Complete Time: 22:06 pm1 09/09 22:05 Order name: Cardiac monitoring; Complete Time: 22:38 pm1 09/09 22:05 Order name: EKG - Nurse/Tech; Complete Time: 22:19 pm1 09/09 22:05 Order name: IV Saline Lock; Complete Time: 22:19 pm1 09/09 22:05 Order name: Labs collected and sent; Complete Time: 22:19 pm1 09/09 22:05 Order name: O2 Per Protocol; Complete Time: 22:34 pm1 09/09 22:05 Order name: O2 Sat Monitoring; Complete Time: 22:34 pm1 Administered Medications: 09/09 22:15 Drug: NS 0.9% 1000 ml Route: IV; Rate: 1000 ml; Site: right antecubital; ll2 09/10 00:40 Drug: Flexeril 10 mg Route: PO; ll2 00:40 Drug: TORadol 30 mg Route: IVP; Site: right antecubital; ll2 Disposition: 06:43 Co-signature as Attending Physician, Bryan Mackey MD I agree with the assessment and tw4 plan of care. Disposition: 09/10/20 00:31 Discharged to Home. Impression: Chest pain, unspecified. - Condition is Stable. - Discharge Instructions: Nonspecific Chest Pain. - Prescriptions for Cyclobenzaprine 10 mg Oral Tablet - take 1 tablet by ORAL route every 8 hours As needed; 30 tablet. Diclofenac Sodium 75 mg Oral Tablet Sustained Release - take 1 tablet by ORAL route 2 times per day; 30 tablet. - Medication Reconciliation Form, Thank You Letter, Antibiotic Education, Prescription Opioid Use, School release form, Family Work Release form. - Follow up: Emergency Department; When: As needed; Reason: Worsening of condition. Follow up: Private Physician; When: 2 - 3 days; Reason: Recheck today's complaints, Continuance of care, Re-evaluation by your physician. - Problem is new. - Symptoms have improved. Signatures: Dispatcher [employer] EDMS Donovan Sheets, SUPERVISOR FINISHING ROOM SUPERVISOR FINISHING ROOM pm1 Bryan Mackey MD MD tw4 Lashell Basilio RN RN ll2 Jhony Ulrich RN RN ll1 Corrections: (The following items were deleted from the chart) 00:49 00:31 09/10/2020 00:31 Discharged to Home. Impression: Chest pain, unspecified. ll2 Condition is Stable. Forms are Medication Reconciliation Form, Thank You Letter, Antibiotic Education, Prescription Opioid Use. Follow up: Emergency Department; When: As needed; Reason: Worsening of condition. Follow up: Private Physician; When: 2 - 3 days; Reason: Recheck today's complaints, Continuance of care, Re-evaluation by your physician. Problem is new. Symptoms have improved. pm1
--- NOTE | 2020-09-10 00:31 | ER ---
Nurse's Notes [facility] Name: Britton Fontanez Age: 20 yrs Sex: Male : 2000 Arrival Date: 09/09/2020 Time: 20:23 Bed 25 Private MD: Diagnosis: Chest pain, unspecified Presentation: 09/09 20:41 Chief complaint: Patient states: CP, dizzy, near syncope feeling, palpitation for 1 ll1 week. No cough or fever. No N/V/D. No appetite. Coronavirus screen: Client denies travel out of the [place] in the last 14 days. difficulty breathing, fatigue, headache, muscle pain, shaking with chills, Client presents with at least one sign or symptom that may indicate coronavirus-19. Standard/surgical mask placed on the client. Ebola Screen: Patient denies travel to an Ebola-affected area in the 21 days before illness onset. Initial Sepsis Screen: Does the patient meet any 2 criteria? No. Patient's initial sepsis screen is negative. Does the patient have a suspected source of infection? No. Patient's initial sepsis screen is negative. Risk Assessment: Do you want to hurt yourself or someone else? Patient reports no desire to harm self or others. Onset of symptoms was September 04, 2020. 20:41 Method Of Arrival: Ambulatory ll1 20:41 Acuity: KAMERON 3 ll1 Historical: - Allergies: 20:43 No Known Allergies; ll1 - PMHx: 20:43 ADD/ADHD; Anxiety; Panic Attacks; ll1 - PSHx: 20:43 None; ll1 - Immunization history:: Flu vaccine is not up to date. - Social history:: Smoking status: Patient denies any tobacco usage or history of. Screenin:30 Abuse screen: Denies threats or abuse. Nutritional screening: No deficits noted. ll2 Tuberculosis screening: No symptoms or risk factors identified. Fall Risk None identified. Assessment: 22:00 General: Appears in no apparent distress. Behavior is calm, cooperative, appropriate ll2 for age. Pain: Denies pain. Neuro: Level of Consciousness is awake, alert, obeys commands, Oriented to person, place, time, situation. Cardiovascular: Patient's skin is warm and dry. Respiratory: Airway is patent Respiratory effort is even, unlabored, Respiratory pattern is regular, symmetrical. GI: No signs and/or symptoms were reported involving the gastrointestinal system. : No signs and/or symptoms were reported regarding the genitourinary system. EENT: No signs and/or symptoms were reported regarding the EENT system. Derm: Skin is intact, is healthy with good turgor, Skin is pink, warm \T\ dry. Musculoskeletal: Circulation, motion, and sensation intact. Range of motion: intact in all extremities. Vital Signs: 20:41 BP 128 / 91; Pulse 86; Resp 17; Temp 98.8; Pulse Ox 100% ; Weight 99.79 kg; Height 5 ll1 ft. 8 in. (172.72 cm); Pain 8/10; 20:41 Body Mass Index 33.45 (99.79 kg, 172.72 cm) ll1 ED Course: 20:23 Patient arrived in ED. am2 20:43 Triage completed. ll1 20:44 Arm band placed on. ll1 22:02 Donovan Sheets NP is PHCP. pm1 22:02 Bryan Mackey MD is Attending Physician. pm1 22:18 Lashell Basilio RN is Primary Nurse. ll2 22:20 Initial lab(s) drawn, by wi, sent to lab. Inserted saline lock: 20 gauge in right wh antecubital area, using aseptic technique. 22:35 XRAY Chest (1 view) In Process Unspecified. EDMS 22:36 Inserted saline lock: 20 gauge in right antecubital area, using aseptic technique. 23:30 Basic Metabolic Panel Sent. 2 09/10 00:48 Patient has correct armband on for positive identification. front desk monitor on. Pulse ll2 ox on. NIBP on. 00:48 No provider procedures requiring assistance completed. IV discontinued, intact, ll2 bleeding controlled, No redness/swelling at site. Pressure dressing applied. Patient maintains SpO2 saturation greater than 95% on room air. Administered Medications: 09/09 22:15 Drug: NS 0.9% 1000 ml Route: IV; Rate: 1000 ml; Site: right antecubital; ll2 09/10 00:40 Drug: Flexeril 10 mg Route: PO; ll2 00:40 Drug: TORadol 30 mg Route: IVP; Site: right antecubital; ll2 Outcome: 00:31 Discharge ordered by . pm1 00:48 Discharged to home ambulatory. ll2 00:48 Condition: stable 00:48 Discharge instructions given to patient, Instructed on discharge instructions, follow up and referral plans. medication usage, Demonstrated understanding of instructions, follow-up care, medications, Prescriptions given X 2. 00:49 Patient left the ED. ll2 Signatures: Dispatcher [employer] EDMS Donovan Sheets NP FOOT GATHERER pm1 Carole Asencio 2 Dori Chance RN RN Lashell Basilio RN RN ll2 Jhony Ulrich RN RN ll1
[2020-09-10] MEDS ORDERED: CYCLOBENZAPRINE 10 MG TAB ONE (00:49)
[2020-09-10] MEDS ORDERED: KETOROLAC 30 MG/ML INJ ONE (00:50)
--- NOTE | 2020-09-10 08:06 | RAD REPORT ---
EXAM DESCRIPTION: Fidel Single View09/09/2020 10:35 pm CLINICAL HISTORY: Chest pain COMPARISON: 2019 FINDINGS: The lungs appear clear of acute infiltrate. The heart is normal size IMPRESSION: No acute abnormalities displayed
--- NOTE | 2020-09-11 05:40 | EKG ---
Test Date: 2020-09-09 Test Time: 20:48:55 Plate Grinder: LML MEASUREMENT RESULTS: Intervals: Rate: 75 NV: 156 QRSD: 96 QT: 372 QTc: 415 Ruso: P: 16 NV: 156 QRS: 76 T: 2 INTERPRETIVE STATEMENTS: Normal sinus rhythm with sinus arrhythmia Nonspecific T wave abnormality Abnormal ECG Compared to ECG 04/23/2020 03:36:39 No significant changes Electronically Signed On 09-11-20 05:35:54 MACHINERY RIGGER by Kalin Chaves
== END 2020-09-10 00:49 | disposition home or self-care (01) ==
LOC: ER 20:17
DX: R07.9 Chest pain, unspecified (principal); F90.9 Attention-deficit hyperactivity disorder, unspecified type; F41.0 Panic disorder [episodic paroxysmal anxiety]
CPT/HCPCS: 36415; 71045; 80048; 80076; 83735; 83880; 84443; 84484; 85025; 85610; 93005; 96374; 99285

== ENCOUNTER 2020-10-26 14:05 | Emergency (ER) | payer OTHER ==
--- OUTSIDE RECORDS SUMMARY | 2020-10-26 14:09 | XMS REPORT | Continuity of Care Document ---
:2000 Author Organization [facility] t Address [address] [place] [address] Care Team Providers Name Role Phone Doctor [...] Health 00:00: 00 Fever Fever Disease Active [facility] Allergies, Adverse Reactions, Alerts This patient has no known allergies or adverse reactions. Social History Social Habit Start Date Stop Date Quantity Comments Source Sex Assigned At [facility] alth Alcohol intake 2017-03-21 2017-03-21 Current [facility] 00:00:00 00:00:00 non-drinker of alcohol (finding) Smoking Status Start Date Stop Date Source Never smoker [facility] Medications Ordered Filled Start Stop Current Ordering Indication Dosage Frequency Signature Comments Components Source Medication Medication Date Date Medication? Clinician (SIG) Name Name naproxen Yes 500mg Take 1 [place] (NAPROSYN) -05 tablet by [facility] 500 mg 00:00: mouth 2 tablet 00 times daily (with meals). acetaminoph Yes 1{tbl} Take 1 Chawla rris en-codeine -05 tablet by [facility] (TYLENOL/CO 00:00: mouth DEINE #3) 00 every 4 300-30 mg hours as per tablet needed for Pain. Procedures This patient has no known procedures. Plan of Care Planned Activity Planned Date Details Comments Source Future Scheduled Test 2021-04-17 00:00:00 IMM Influenza [facility] Seasonal Apr to September (>/= 19 yrs) [code = IMM Influenza Seasonal Apr to September (>/= 19 yrs)] Future Scheduled Test 2014 00:00:00 COVID-19 Vaccine (1) [facility] [code = COVID-19 Vaccine (1)] Encounters Start End Encounter Admission Attending Care Care Encounter Source Date/Time Date/Time Type Type Clinicians Facility Department ID 2020-02-21 2020-02-21 Orders Doctor TOBI [id number] 00:00:00 00:00:00 Only Unassigned, [place]K [id number] [place] [facility] [id number] 2019-02-23 2019-02-23 Telephone Jed Mi [id number] 00:00:00 00:00:00 P[place] [id number] [place] [id number] 2017-05-02 2017-05-02 Outpatient [facility] [id number] [place] 00:00:00 00:00:00 [facility] 2017-04-18 2017-04-18 Outpatient [facility] [id number] [place] 00:00:00 00:00:00 [facility] 2017-03-21 2017-03-21 Emergency [facility] [id number] [place] 22:44:59 22:44:59 [facility] 2017-03-21 2017-03-21 Emergency [facility] [id number] [place] 21:04:42 21:04:42 Health Results This patient has no known results.
--- NOTE | 2020-10-26 15:02 | RAD REPORT ---
EXAM DESCRIPTION: CT - Head Brain Wo Cont - 10/26/2020 2:51 pm CLINICAL HISTORY: HEADACHE Headache, hypertension COMPARISON: Head Brain Wo Cont dated 08/14/2018 TECHNIQUE: All CT scans are performed using dose optimization technique as appropriate and may inclu de automated exposure control or mA/KV adjustment according to patient size. FINDINGS: No intracranial hemorrhage, hydrocephalus or extra-axial fluid collection.No areas of brai n edema or evidence of midline shift. The paranasal sinuses and mastoids are clear. The calvarium is intact. IMPRESSION: No acute intracranial abnormality.
--- NOTE | 2020-10-26 15:09 | ER ---
Nurse's Notes [facility] Name: Britton Fontanez Age: 20 yrs Sex: Male : 2000 Arrival Date: 10/26/2020 Time: 14:11 Bed 16 Private MD: Diagnosis: Headache Presentation: 10/26 14:26 Chief complaint: Patient states: headache pressure x 2 months. Ibuprofen taken 2 hours sv ago with no relief. Coronavirus screen: Client denies travel out of the [place] in the last 14 days. At this time, the client does not indicate any symptoms associated with coronavirus-19. Ebola Screen: No symptoms or risks identified at this time. Initial Sepsis Screen: Does the patient meet any 2 criteria? No. Patient's initial sepsis screen is negative. Does the patient have a suspected source of infection? No. Patient's initial sepsis screen is negative. Risk Assessment: Do you want to hurt yourself or someone else? Patient reports no desire to harm self or others. Onset of symptoms was August 2020. 14:26 Method Of Arrival: Ambulatory sv 14:26 Acuity: KAMERON 4 sv Triage Assessment: 14:25 Headache History: The patient has had previous headaches and this one is similar to ll1 previous episodes. General: Appears in no apparent distress. Behavior is calm, cooperative, appropriate for age. Pain: Complains of pain in head Pain Quality of pain is described as aching, Pain began 2 + months Also complains of no other associated symptoms. Neuro: Level of Consciousness is awake, alert, obeys commands, Oriented to person, place, time, situation, Appropriate for age Investigative Shopper are equal bilaterally Moves all extremities. Full function Gait is steady, Speech is normal, Facial symmetry appears normal, Reports headache. Historical: - Allergies: 14:28 No Known Allergies; sv - PMHx: 14:28 ADD/ADHD; Anxiety; Panic Attacks; sv - PSHx: 14:28 None; sv - Immunization history:: Adult Immunizations up to date, Client reports having NOT received the Covid vaccine. Flu vaccine is not up to date. - Social history:: Smoking status: Patient denies any tobacco usage or history of. Patient uses alcohol, occasionally. Patient/guardian denies using street drugs, IV drugs. Screenin:59 Abuse screen: Denies threats or abuse. Nutritional screening: No deficits noted. ll1 Tuberculosis screening: No symptoms or risk factors identified. Fall Risk None identified. Total Davenport Fall Scale indicates No Risk (0-24 pts). Assessment: 15:25 Reassessment: No changes from previously documented assessment. Patient and/or family ll1 updated on plan of care and expected duration. Pain level reassessed. 16:15 Reassessment: No changes from previously documented assessment. Patient and/or family ll1 updated on plan of care and expected duration. Pain level reassessed. Patient is alert, oriented x 3, equal unlabored respirations, skin warm/dry/pink. Patient states feeling better. Vital Signs: 14:26 BP 123 / 73; Pulse 62; Resp 18; Temp 98.6; Weight 97.52 kg; Height 5 ft. 8 in. (172.72 sv cm); Pain 8/10; 16:27 BP 118 / 67; Pulse 74; Resp 17; Pulse Ox 98% ; Pain 3/10; ll1 14:26 Body Mass Index 32.69 (97.52 kg, 172.72 cm) sv ED Course: 14:11 Patient arrived in ED. mr 14:20 Jhony Ulrich, SILVESTRE is Primary Nurse. ll1 14:20 Arm band placed on Patient placed in an exam room, on a stretcher. ll1 14:24 Donovan Sheets NP is PHCP. pm1 14:24 Isra Cameron MD is Attending Physician. pm1 14:27 Triage completed. sv 14:51 CT Head Brain wo Cont In Process Unspecified. EDMS 15:00 Patient has correct armband on for positive identification. Bed in low position. Call ll1 light in reach. Side rails up X 1. Cardiac monitoring not applicable on this patient. 16:27 No provider procedures requiring assistance completed. Patient did not have IV access ll1 during this emergency room visit. Administered Medications: 15:37 Drug: Decadron (dexamethasone) 10 mg Route: IM; Site: left vastus lateralis; ll1 16:15 Follow up: Response: No adverse reaction; Pain is decreased; RASS: Alert and Calm (0) ll1 15:37 Drug: Reglan 10 mg Route: IM; Site: right vastus lateralis; ll1 16:15 Follow up: Response: No adverse reaction; Pain is decreased; RASS: Alert and Calm (0) ll1 15:37 Drug: Benadryl (diphenhydrAMINE) 25 mg Route: PO; ll1 16:15 Follow up: Response: No adverse reaction; Pain is decreased; RASS: Alert and Calm (0) ll1 Outcome: 15:09 Discharge ordered by . pm1 16:16 Patient left the ED. ll1 16:16 Discharged to home ambulatory. ll1 16:16 Condition: stable 16:16 Discharge instructions given to patient, Instructed on discharge instructions, follow up and referral plans. medication usage, Demonstrated understanding of instructions, follow-up care, medications, Prescriptions given X 1. Signatures: Dispatcher [employer] EDKelly Smith RN RN Gabriela Cifuentes mr Donovan Sheets NP TRAFFIC COORDINATOR pm1 Jhony Ulrich RN RN ll1 Corrections: (The following items were deleted from the chart) 16:28 16:28 Condition: stable ll1 ll1 16:28 16:28 Discharged to home ambulatory, 1 1 16:28 16:28 Discharge instructions given to patient, Instructed on discharge instructions, ll1 follow up and referral plans. medication usage, Demonstrated understanding of instructions, follow-up care, medications, Prescriptions given X 1, ll1
--- NOTE | 2020-10-26 15:10 | EDPHYS ---
Physician Documentation [facility] Name: Britton Fontanez Age: 20 yrs Sex: Male : 2000 Arrival Date: 10/26/2020 Time: 14:11 Bed 16 Private MD: ED Physician Isra Cameron HPI: 10/26 14:36 This 20 yrs old Male presents to ER via Ambulatory with complaints of Headache.pm1 14:36 The patient complains of pain to the forehead, left occipital area and right occipital pm1 area. The patient describes the headache as aching, constant. Onset: The symptoms/episode began/occurred Onset: The symptoms/episode began/occurred 2 month(s) ago. Associated signs and symptoms: The patient has no apparent associated signs or symptoms, Pertinent negatives: altered mental status, nausea, vision changes, vomiting, weakness. Severity of symptoms: in the emergency department the pain is unchanged. Headache History: Denies prior headaches. The patient has not experienced similar symptoms in the past. The patient has not recently seen a physician. Historical: - Allergies: 14:28 No Known Allergies; sv - PMHx: 14:28 ADD/ADHD; Anxiety; Panic Attacks; sv - PSHx: 14:28 None; sv - Immunization history:: Adult Immunizations up to date, Client reports having NOT received the Covid vaccine. Flu vaccine is not up to date. - Social history:: Smoking status: Patient denies any tobacco usage or history of. Patient uses alcohol, occasionally. Patient/guardian denies using street drugs, IV drugs. ROS: 14:36 Constitutional: Negative for fever, chills, and weight loss, Eyes: Negative for injury, pm1 pain, redness, and discharge, ENT: Negative for injury, pain, and discharge, Neck: Negative for injury, pain, and swelling, Cardiovascular: Negative for chest pain, palpitations, and edema, Respiratory: Negative for shortness of breath, cough, wheezing, and pleuritic chest pain, Abdomen/GI: Negative for abdominal pain, nausea, vomiting, diarrhea, and constipation, Back: Negative for injury and pain, MS/Extremity: Negative for injury and deformity. 14:36 Neuro: Positive for headache, Negative for numbness, tingling, weakness. Exam: 14:36 Constitutional: This is a well developed, well nourished patient who is awake, alert, pm1 and in no acute distress. Head/Face: Normocephalic, atraumatic. Eyes: Pupils equal round and reactive to light, extra-ocular motions intact. Lids and lashes normal. Conjunctiva and sclera are non-icteric and not injected. Cornea within normal limits. Periorbital areas with no swelling, redness, or edema. ENT: Nares patent. No nasal discharge, no septal abnormalities noted. Tympanic membranes are normal and external auditory canals are clear. Oropharynx with no redness, swelling, or masses, exudates, or evidence of obstruction, uvula midline. Mucous membranes moist. 14:36 Skin: Warm, dry with normal turgor. Normal color with no rashes, no lesions, and no evidence of cellulitis. MS/ Extremity: Pulses equal, no cyanosis. Neurovascular intact. Full, normal range of motion. 14:36 Cardiovascular: Exam negative for acute changes, Rate: normal, Rhythm: regular, Pulses: no pulse deficits are appreciated. 14:36 Respiratory: Exam negative for acute changes, respiratory distress, shortness of breath. 14:36 Neuro: Exam negative for acute changes, Orientation: is normal, Mentation: is normal, Motor: is normal, moves all fours, Sensation: is normal, no obvious gross deficits, Gait: is steady, at a normal pace, without difficulty. Vital Signs: 14:26 BP 123 / 73; Pulse 62; Resp 18; Temp 98.6; Weight 97.52 kg; Height 5 ft. 8 in. (172.72 sv cm); Pain 8/10; 16:27 BP 118 / 67; Pulse 74; Resp 17; Pulse Ox 98% ; Pain 3/10; ll1 14:26 Body Mass Index 32.69 (97.52 kg, 172.72 cm) sv MDM: 14:24 Patient medically screened. pm1 14:51 Data reviewed: vital signs. pm1 15:09 Counseling: I had a detailed discussion with the patient and/or guardian regarding: the pm1 historical points, exam findings, and any diagnostic results supporting the discharge/admit diagnosis, radiology results, the need for outpatient follow up, to return to the emergency department if symptoms worsen or persist or if there are any questions or concerns that arise at home. 10/26 14:29 Order name: CT Head Brain wo Cont; Complete Time: 15:05 pm1 Administered Medications: 15:37 Drug: Decadron (dexamethasone) 10 mg Route: IM; Site: left vastus lateralis; ll1 16:15 Follow up: Response: No adverse reaction; Pain is decreased; RASS: Alert and Calm (0) ll1 15:37 Drug: Reglan 10 mg Route: IM; Site: right vastus lateralis; ll1 16:15 Follow up: Response: No adverse reaction; Pain is decreased; RASS: Alert and Calm (0) ll1 15:37 Drug: Benadryl (diphenhydrAMINE) 25 mg Route: PO; ll1 16:15 Follow up: Response: No adverse reaction; Pain is decreased; RASS: Alert and Calm (0) ll1 Disposition: 16:32 Co-signature as Attending Physician, Isra Cameron MD. rn Disposition: 10/26/20 15:09 Discharged to Home. Impression: Headache. - Condition is Stable. - Discharge Instructions: General Headache Without Cause. - Prescriptions for Fiorinal 50- 325-40 mg Oral Capsule - take 1 capsule by ORAL route every 4 hours As needed - not to exceed 6 capsules per day; 20 capsule. - Medication Reconciliation Form, Thank You Letter, Antibiotic Education, Prescription Opioid Use, Work release form form. - Follow up: Emergency Department; When: As needed; Reason: Worsening of condition. Follow up: Private Physician; When: 2 - 3 days; Reason: Recheck today's complaints, Continuance of care, Re-evaluation by your physician. - Problem is new. - Symptoms have improved. Signatures: Dispatcher [employer] Kelly Goff RN RN sv Nieto, Roman, MD MD rn Marinas, Patrick, NP [employer] WORKER pm1 Jhony Ulrich RN RN ll1 Corrections: (The following items were deleted from the chart) 16:16 15:09 10/26/2020 15:09 Discharged to Home. Impression: Headache. Condition is Stable. ll1 Forms are Medication Reconciliation Form, Thank You Letter, Antibiotic Education, Prescription Opioid Use. Follow up: Emergency Department; When: As needed; Reason: Worsening of condition. Follow up: Private Physician; When: 2 - 3 days; Reason: Recheck today's complaints, Continuance of care, Re-evaluation by your physician. Problem is new. Symptoms have improved. pm1
[2020-10-26] MEDS ORDERED: DIPHENHYDRAMINE 25 MG TAB/CAP ONE (15:47)
[2020-10-26] MEDS ORDERED: dexAMETHasone 10 MG/ML VIAL ONE (15:47)
[2020-10-26] MEDS ORDERED: METOCLOPRAMIDE 10 MG/2mL INJ ONE (15:47)
[2020-10-26 16:29] VITALS: BP 123/73; TEMP 98.6
== END 2020-10-26 16:16 | disposition home or self-care (01) ==
LOC: ER 14:05
DX: R51.9 Headache, unspecified (principal)
CPT/HCPCS: 70450; 96372; 99283; J2765; J1100

== ENCOUNTER 2020-11-03 21:32 | Emergency (ER) | payer OTHER ==
--- OUTSIDE RECORDS SUMMARY | 2020-11-03 21:34 | XMS REPORT | Continuity of Care Document ---
:2000 Author Organization [facility] t Address [address] [place] [address] Care Team Providers Name Role Phone Doctor [...] Health 00:00: 00 Fever Fever Disease Active [facility] Allergies, Adverse Reactions, Alerts This patient has no known allergies or adverse reactions. Social History Social Habit Start Date Stop Date Quantity Comments Source Sex Assigned At [facility] alth Alcohol intake 2017-03-21 2017-03-[address] [facility] 00:00:00 00:00:00 non-drinker of alcohol (finding) Smoking Status Start Date Stop Date Source Never smoker [facility] Medications Ordered Filled Start Stop Current Ordering Indication Dosage Frequency Signature Comments Components Source Medication Medication Date Date Medication? Clinician (SIG) Name Name naproxen Yes 500mg Take 1 [place] (NAPROSYN) -05 tablet by [facility] 500 mg 00:00: mouth 2 tablet 00 times daily (with meals). acetaminoph Yes 1{tbl} Take 1 Chawla rris en-codeine -05 tablet by [facility] (TYLENOL/CO 00:00: mouth DEINE #3) 00 every 4 300-30 mg hours as per tablet needed for Pain. Procedures This patient has no known procedures. Plan of Care Planned Activity Planned Date Details Comments Source Future Scheduled Test 2021-04-17 00:00:00 IMM Influenza [facility] Seasonal Apr to September (>/= 19 yrs) [code = IMM Influenza Seasonal Apr to September (>/= 19 yrs)] Future Scheduled Test 2014 00:00:00 COVID-19 Vaccine (1) [facility] [code = COVID-19 Vaccine (1)] Encounters Start End Encounter Admission Attending Care Care Encounter Source Date/Time Date/Time Type Type Clinicians Facility Department ID 2020-02-21 2020-02-21 Orders Doctor TOBI [id number] 00:00:00 00:00:00 Only Unassigned, DERECK [id number] [place] [facility] [id number] 2019-02-23 2019-02-23 Telephone Jed Mi [id number] 00:00:00 00:00:00 P[facility]rez Cotter [id number] [place] [id number] 2017-05-02 2017-05-02 Outpatient [facility] [id number] [place] 00:00:00 00:00:00 [facility] 2017-04-18 2017-04-18 Outpatient [facility] [id number] [place] 00:00:00 00:00:00 [facility] 2017-03-21 2017-03-21 Emergency [facility] [id number] [place] 22:44:59 22:44:59 [facility] 2017-03-21 2017-03-21 Emergency [facility] [id number] [place] 21:04:42 21:04:42 Health Results This patient has no known results.
--- NOTE | 2020-11-04 00:28 | ER ---
Nurse's Notes [facility] Name: Britton Fontanez Age: 20 yrs Sex: Male : 2000 Arrival Date: 11/03/2020 Time: 22:58 Bed DIS1 Private MD: Diagnosis: Acute pharyngitis;Allergy status to penicillin Presentation: 11/03 23:29 Chief complaint: Patient states: he was started on amoxicillin last week for a sore bb throat and this afternoon he started having a rash on his hands and chest which is itchy. Coronavirus screen: At this time, the client does not indicate any symptoms associated with coronavirus-19. Ebola Screen: No symptoms or risks identified at this time. Onset: The symptoms/episode began/occurred acutely. Anaphylaxis evaluation, no signs or symptoms of anaphylaxis were noted. Initial Sepsis Screen: Does the patient meet any 2 criteria? No. Patient's initial sepsis screen is negative. Does the patient have a suspected source of infection? No. Patient's initial sepsis screen is negative. Risk Assessment: Do you want to hurt yourself or someone else? Patient reports no desire to harm self or others. Onset of symptoms was November 03, 2020. 23:29 Method Of Arrival: Ambulatory bb 23:29 Acuity: KAMERON 4 bb Triage Assessment: 23:32 General: Appears in no apparent distress. Behavior is calm, cooperative. Pain: Denies bb pain. Neuro: Level of Consciousness is awake, alert, obeys commands, Oriented to person, place, time, situation. Cardiovascular: No deficits noted. Respiratory: Respiratory effort is even, unlabored, Respiratory pattern is regular. Derm: Rash noted that is on bilateral hands and chest Reports itching. Musculoskeletal: Circulation, motion, and sensation intact. Historical: - Allergies: 23:32 Amoxicillin; bb - Home Meds: 23:32 Zoloft 50 mg Oral tab 1 tab once daily [Active]; bb - PMHx: 23:32 ADD/ADHD; Anxiety; Panic Attacks; bb - PSHx: 23:32 dental; bb - Immunization history:: Adult Immunizations up to date. - Social history:: Smoking status: Patient denies any tobacco usage or history of. - Family history:: not pertinent. Screenin:34 Abuse screen: Denies threats or abuse. Nutritional screening: No deficits noted. bb Tuberculosis screening: No symptoms or risk factors identified. Fall Risk None identified. Assessment: 23:34 Reassessment: No changes from previously documented assessment. see triage assessment. bb Respiratory: Airway is patent Breath sounds are clear bilaterally. 11/04 00:57 Reassessment: Patient is alert, oriented x 3, equal unlabored respirations, skin bb warm/dry/pink. pt verbalized understanding of and agrees to plan of care discharge instructions given pt ambulated with steady gait to exit. 00:58 Reassessment: pt to wait 15 minutes post med administration prior to discharge. bb Vital Signs: 11/03 23:29 BP 129 / 86; Pulse 64; Resp 16 S; Temp 98.4(O); Pulse Ox 100% on R/A; Weight 97.52 kg bb (R); Height 5 ft. 8 in. (172.72 cm) (R); Pain 0/10; 23:29 Body Mass Index 32.69 (97.52 kg, 172.72 cm) bb ED Course: 22:58 Patient arrived in ED. cl3 23:31 Triage completed. bb 23:32 Arm band placed on Patient placed pt placed in hallway chair. bb 23:34 Patient has correct armband on for positive identification. bb 23:50 Matt Sumner MD is Attending Physician. [facility] 11/04 00:59 No provider procedures requiring assistance completed. Patient did not have IV access bb during this emergency room visit. Administered Medications: 00:56 Drug: Pepcid (famotidine) 20 mg Route: PO; bb 01:08 Follow up: Response: No adverse reaction bb 00:57 Drug: Zithromax (azithromycin) 500 mg Route: PO; bb 01:08 Follow up: Response: No adverse reaction bb 00:57 Drug: Benadryl (diphenhydrAMINE) 50 mg Route: PO; bb 01:08 Follow up: Response: No adverse reaction bb 00:57 Drug: predniSONE 60 mg Route: PO; bb 01:08 Follow up: Response: No adverse reaction bb Outcome: 00:27 Discharge ordered by . [facility] 00:59 Discharged to home ambulatory. bb 00:59 Condition: stable 00:59 Discharge instructions given to patient, Instructed on discharge instructions, follow up and referral plans. medication usage, Demonstrated understanding of instructions, follow-up care, medications, Prescriptions given X 4. 01:08 Patient left the ED. bb Signatures: Matt Sumner MD MD cha Ballard, Brenda RN RN Mar Meraz cl3
--- NOTE | 2020-11-04 00:28 | EDPHYS ---
Physician Documentation [facility] Name: Britton Fontanez Age: 20 yrs Sex: Male : 2000 Arrival Date: 11/03/2020 Time: 22:58 Bed DIS1 Private MD: ED Physician Matt Sumner HPI: 11/04 00:19 This 20 yrs old Male presents to ER via Ambulatory with complaints of Itching. thelma 00:19 The patient presents with difficulty swallowing, rash, redness of skin. Onset: The thelma symptoms/episode began/occurred 1 day(s) ago. Associated signs and symptoms: The patient has no apparent associated signs or symptoms. Possible causes: antibiotics, penicillin. The patient presents with sore throat. The patient describes throat pain as burning, raw. At home the patient or guardian has treated the symptoms with nothing. Severity of symptoms: At their worst the symptoms were mild in the emergency department the symptoms are unchanged. Modifying factors: The symptoms are alleviated by nothing, the symptoms are aggravated by foods, swallowing. Historical: - Allergies: 11/03 23:32 Amoxicillin; bb - Home Meds: 23:32 Zoloft 50 mg Oral tab 1 tab once daily [Active]; bb - PMHx: 23:32 ADD/ADHD; Anxiety; Panic Attacks; bb - PSHx: 23:32 dental; bb - Immunization history:: Adult Immunizations up to date. - Social history:: Smoking status: Patient denies any tobacco usage or history of. - Family history:: not pertinent. ROS: 11/04 00:19 Constitutional: Negative for fever, chills, and weight loss, Eyes: Negative for injury, thelma pain, redness, and discharge, Neck: Negative for injury, pain, and swelling, Cardiovascular: Negative for chest pain, palpitations, and edema, Respiratory: Negative for shortness of breath, cough, wheezing, and pleuritic chest pain, Abdomen/GI: Negative for abdominal pain, nausea, vomiting, diarrhea, and constipation, Back: Negative for injury and pain, : Negative for injury, bleeding, discharge, and swelling, MS/Extremity: Negative for injury and deformity, Neuro: Negative for headache, weakness, numbness, tingling, and seizure, Psych: Negative for depression, anxiety, suicide ideation, homicidal ideation, and hallucinations, Allergy/Immunology: Negative for hives, rash, and allergies, Endocrine: Negative for neck swelling, polydipsia, polyuria, polyphagia, and marked weight changes. ENT: Positive for difficulty swallowing, sore throat. Skin: Positive for rash, of the chest, right hand and left hand. Exam: 00:19 Constitutional: This is a well developed, well nourished patient who is awake, alert, thelma and in no acute distress. Head/Face: Normocephalic, atraumatic. Eyes: Pupils equal round and reactive to light, extra-ocular motions intact. Lids and lashes normal. Conjunctiva and sclera are non-icteric and not injected. Cornea within normal limits. Periorbital areas with no swelling, redness, or edema. Neck: Trachea midline, no thyromegaly or masses palpated, and no cervical lymphadenopathy. Supple, full range of motion without nuchal rigidity, or vertebral point tenderness. No Meningismus. Chest/axilla: Normal chest wall appearance and motion. Nontender with no deformity. No lesions are appreciated. Cardiovascular: Regular rate and rhythm with a normal S1 and S2. No gallops, murmurs, or rubs. Normal PMI, no JVD. No pulse deficits. Respiratory: Lungs have equal breath sounds bilaterally, clear to auscultation and percussion. No rales, rhonchi or wheezes noted. No increased work of breathing, no retractions or nasal flaring. Abdomen/GI: Soft, non-tender, with normal bowel sounds. No distension or tympany. No guarding or rebound. No evidence of tenderness throughout. Back: No spinal tenderness. No costovertebral tenderness. Full range of motion. Male : Normal genitalia with no discharge or lesions. Neuro: Awake and alert, GCS 15, oriented to person, place, time, and situation. Cranial nerves II-XII grossly intact. Motor strength 5/5 in all extremities. Sensory grossly intact. Cerebellar exam normal. Normal gait. Psych: Awake, alert, with orientation to person, place and time. Behavior, mood, and affect are within normal limits. 00:19 ENT: Posterior pharynx: Tonsils: bilaterally enlarged, with erythema, Uvula: normal, midline, non-edematous, no erythema, swelling, is not appreciated, erythema, is not appreciated, exudate, is not appreciated, peritonsillar mass, is not appreciated. Vital Signs: 11/03 23:29 BP 129 / 86; Pulse 64; Resp 16 S; Temp 98.4(O); Pulse Ox 100% on R/A; Weight 97.52 kg bb (R); Height 5 ft. 8 in. (172.72 cm) (R); Pain 0/10; 23:29 Body Mass Index 32.69 (97.52 kg, 172.72 cm) bb MDM: 23:50 Patient medically screened. thelma 11/04 00:19 Differential diagnosis: anaphylaxis, angioedema, group A strep tonsillitis, thelma pharyngitis, upper respiratory infection. Data reviewed: vital signs, nurses notes. Data interpreted: school bus monitor: not applicable for this patient encounter. rate is 64 beats/min, rhythm is regular, Pulse oximetry: on room air is 100 %. Counseling: I had a detailed discussion with the patient and/or guardian regarding: the historical points, exam findings, and any diagnostic results supporting the discharge/admit diagnosis, the need for outpatient follow up, for definitive care, a family practitioner. Administered Medications: 00:56 Drug: Pepcid (famotidine) 20 mg Route: PO; bb 01:08 Follow up: Response: No adverse reaction bb 00:57 Drug: Zithromax (azithromycin) 500 mg Route: PO; bb 01:08 Follow up: Response: No adverse reaction bb 00:57 Drug: Benadryl (diphenhydrAMINE) 50 mg Route: PO; bb 01:08 Follow up: Response: No adverse reaction bb 00:57 Drug: predniSONE 60 mg Route: PO; bb 01:08 Follow up: Response: No adverse reaction bb Disposition: 11/04/20 00:27 Discharged to Home. Impression: Acute pharyngitis, Allergy status to penicillin. - Condition is Stable. - Discharge Instructions: Allergies, Adult, Pharyngitis, Angioedema, Pharyngitis, Orqx-wj-Ieye, Angioedema, Xsqx-gz-[id number], Sore Throat, Rfcj-kn-Yhkg. - Prescriptions for Hydroxyzine HCl 25 mg Oral Tablet - take 1 tablet by ORAL route every 6 hours As needed; 30 tablet. Pepcid 20 mg Oral Tablet - take 1 tablet by ORAL route every 12 hours for 10 days; 20 tablet. Zithromax Z- Bib 250 mg Oral Tablet - take 1 tablet by ORAL route as directed for 5 days Day 1 - take two (2) tablets one time. Day 2, 3, 4 , 5 take one (1) tablet once daily.; 6 tablet. Prednisone 20 mg Oral Tablet - take 2 tablet by ORAL route once daily for 5 days; 10 tablet. - Medication Reconciliation Form, Thank You Letter, Antibiotic Education, Prescription Opioid Use form. - Follow up: Private Physician; When: 2 - 3 days; Reason: Recheck today's complaints, Continuance of care, Re-evaluation by your physician. - Problem is new. - Symptoms have improved. Signatures: Matt Sumner MD MD cha Ballard, Brenda RN RN bb Corrections: (The following items were deleted from the chart) 01:08 00:27 11/04/2020 00:27 Discharged to Home. Impression: Acute pharyngitis; Allergy bb status to penicillin. Condition is Stable. Forms are Medication Reconciliation Form, Thank You Letter, Antibiotic Education, Prescription Opioid Use. Follow up: Private Physician; When: 2 - 3 days; Reason: Recheck today's complaints, Continuance of care, Re-evaluation by your physician. Problem is new. Symptoms have improved. thelma
[2020-11-04] MEDS ORDERED: FAMOTIDINE 20 MG TAB ONE (01:08)
[2020-11-04] MEDS ORDERED: DIPHENHYDRAMINE 25 MG TAB/CAP ONE (01:08)
[2020-11-04] MEDS ORDERED: AZITHROMYCIN 250 MG TAB ONE (01:08)
[2020-11-04] MEDS ORDERED: predniSONE 20 MG TAB ONE (01:08)
[2020-11-04 01:13] VITALS: BP 129/86; TEMP 98.4; O2SAT 100
== END 2020-11-04 01:08 | disposition home or self-care (01) ==
LOC: ER 21:32
DX: J02.9 Acute pharyngitis, unspecified (principal); Z88.0 Allergy status to penicillin; F41.9 Anxiety disorder, unspecified
CPT/HCPCS: 99283; J7512

== ENCOUNTER 2021-01-20 18:55 | Emergency (ER) | payer OTHER ==
--- OUTSIDE RECORDS SUMMARY | 2021-01-20 19:05 | XMS REPORT | Continuity of Care Document ---
:2000 Author Organization [facility] t Address [address] [place] [address] Care Team Providers Name Role Phone Claudia ELLER, S Attending Clinician Doctor Unassigned, Name Attending Clinician Unavailable King DAPHNIE, C Attending Clinician Problems Condition Condition Condition Status Onset Resolution Last Treating Co mments Source Name Details Category Date Date Treatment Clinician Date Submental Submental Disease Active [facility] space space 03-22 Health infection infection 00:00: 00 Change in Change in Disease Active [facility] voice voice 03-21 Health 00:00: 00 Fever Fever Disease Active [facility] Allergies, Adverse Reactions, Alerts This patient has no known allergies or adverse reactions. Social History Social Habit Start Date Stop Date Quantity Comments Source Sex Assigned At [facility] alth Alcohol intake 2017-03-21 2017-03-21 Current [facility] 00:00:00 00:00:00 non-drinker of alcohol (finding) Smoking Status Start Date Stop Date Source Never smoker [facility] Medications Ordered Filled Start Stop Current Ordering Indication Dosage Frequency Signature Comments Components Source Medication Medication Date Date Medication? Clinician (SIG) Name Name naproxen Yes 500mg Take 1 [place] (NAPROSYN) 03-22 tablet by [facility] 500 mg 00:00: mouth 2 tablet 00 times daily (with meals). acetaminoph Yes 1{tbl} Take 1 Chawla rris en-codeine 9-05 tablet by [facility] (TYLENOL/CO 00:00: mouth DEINE #3) 00 every 4 300-30 mg hours as per tablet needed for Pain. Procedures This patient has no known procedures. Plan of Care Planned Activity Planned Date Details Comments Source Future Scheduled Test 2021-04-17 00:00:00 IMM Influenza [facility] Seasonal Apr to September (>/= 19 yrs) [code = IMM Influenza Seasonal Apr to September (>/= 19 yrs)] Future Scheduled Test 2010 00:00:00 COVID-19 Vaccine (1) [facility] [code = COVID-19 Vaccine (1)] Encounters Start End Encounter Admission Attending Care Care Encounter Source Date/Time Date/Time Type Type Clinicians Facility Department ID 2021-01-08 2021-01-08 Emergency [facility] [id number] 21:56:00 23:50:00 Lida Bender [id number] [place] [id number] [place] [id number] 2020-02-21 2020-02-21 Orders Doctor TOBI [id number] 00:00:00 00:00:00 Only Unassigned, DERECK [id number] [place] [id number] 2019-02-23 2019-02-23 Telephone Jed M[place] [id number] 00:00:00 00:00:00 [place] [id number] [place] [id number] 2017-05-02 2017-05-02 Outpatient [facility] [id number] [place] 00:00:00 00:00:00 Health 2017-04-18 2017-04-18 Outpatient [facility] [id number] [place] 00:00:00 00:00:00 Health 2017-03-21 2017-03-21 Emergency [facility] [id number] [place] 22:44:59 22:44:59 Health 2017-03-21 2017-03-21 Emergency [facility] [id number] [place] 21:04:42 21:04:42 Health Results This patient has no known results.
[2021-01-20 21:11] LABS: Absolute Lymphocytes (CBC) 1.6 K/uL (0.7-4.9); Basophils % 0.4 % (0-1.3); Hematocrit 43.5 % (39.6-49.0); Lymphocytes % 20.3 % (15.3-44.8); MPV 8.1 fL (7.6-11.3); RBC Red Blood Cell Count 5.22 M/uL (4.33-5.43)
[2021-01-20 21:14] LABS: Protime INR 1.06
[2021-01-20 21:32] LABS: ALT/SGPT 28 U/L (12-78); AST/SGOT 10 U/L (15-37); Albumin 4.5 g/dL (3.4-5.0); Alkaline Phosphatase 67 U/L (45-117); BUN Blood Urea Nitrogen 5 mg/dL (7-18); Bicarbonate 27 mmol/L (21-32); Bilirubin Direct 0.2 mg/dL (0-0.2); Bilirubin Total 0.6 mg/dL (0.2-1.0); Glucose Level 90 mg/dL (74-106); Magnesium 2.1 mg/dL (1.8-2.4); NT PRO-BNP 9 pg/mL (<125); Phosphorus 3.6 mg/dL (2.5-4.9); Potassium 3.5 mmol/L (3.5-5.1); Sodium Level 140 mmol/L (136-145); Troponin (Emerg Dept Use Only) < 0.02 ng/mL (0.0-0.045)
[2021-01-20 22:03] LABS: Creatine Phosphokinase 88 U/L (39-308)
--- NOTE | 2021-01-20 22:12 | RAD REPORT ---
EXAM DESCRIPTION: RAD - Chest Single View - 01/20/2021 9:18 pm CLINICAL HISTORY: CHEST PAIN COMPARISON: Portable September 09 TECHNIQUE: AP portable chest image was obtained 01/20/2021 9:18 pm . FINDINGS: Lungs are clear. Heart and vasculature are normal. No measurable pleural effusion and no p neumothorax. No acute bony abnormality seen. No acute aortic findings suspected. IMPRESSION: No acute cardiopulmonary process. No significant change from comparison study.
[2021-01-20] MEDS ORDERED: KETOROLAC 30 MG/ML INJ ONE (23:06)
--- NOTE | 2021-01-20 23:21 | ER ---
Nurse's Notes [facility] Name: Britton Fontanez Age: 20 yrs Sex: Male : 2000 Arrival Date: 01/20/2021 Time: 18:57 Bed 4 Private MD: Diagnosis: Chest pain, unspecified;Chest Wall Pain Presentation: 01/20 19:22 Chief complaint: Patient states: For the past 3 days I've been having Left arm pain vg1 that goes down to my left leg and also the left side of my chest hurts. Coronavirus screen: Client denies travel out of the [place] in the last 14 days. Ebola Screen: Patient negative for fever greater than or equal to 101.5 degrees Fahrenheit, and additional compatible Ebola Virus Disease symptoms. Initial Sepsis Screen: Does the patient meet any 2 criteria? No. Patient's initial sepsis screen is negative. Does the patient have a suspected source of infection? No. Patient's initial sepsis screen is negative. Risk Assessment: Do you want to hurt yourself or someone else? Patient reports no desire to harm self or others. Onset of symptoms was January 17, 2021. 19:22 Method Of Arrival: Ambulatory vg1 19:22 Acuity: KAMERON 3 vg1 Triage Assessment: 19:23 General: Appears in no apparent distress. uncomfortable, Behavior is cooperative, vg1 anxious. Pain: Complains of pain in chest, left arm and left leg Pain currently is 7 out of 10 on a pain scale. Historical: - Allergies: 19:23 Amoxicillin; vg1 - PMHx: 19:23 ADD/ADHD; Anxiety; Panic Attacks; vg1 - Immunization history:: Adult Immunizations up to date. - Social history:: Smoking status: Patient denies any tobacco usage or history of. Screenin:57 Abuse screen: Denies threats or abuse. Denies injuries from another. Nutritional ad5 screening: No deficits noted. Nutritional screening: No deficits noted. Tuberculosis screening: No symptoms or risk factors identified. Fall Risk None identified. Assessment: 20:56 General: Appears in no apparent distress. Behavior is calm, cooperative, appropriate ad5 for age. Neuro: No deficits noted. Level of Consciousness is awake, alert, obeys commands, Oriented to person, place, time, situation, Appropriate for age. Cardiovascular: Reports chest pain, Heart tones present Capillary refill < 3 seconds Patient's skin is warm and dry. Pulses are all present. Rhythm is regular. Respiratory: No deficits noted. Airway is patent Respiratory effort is even, unlabored, Respiratory pattern is regular, symmetrical. GI: No deficits noted. No signs and/or symptoms were reported involving the gastrointestinal system. : No deficits noted. No signs and/or symptoms were reported regarding the genitourinary system. Derm: Skin is pink, warm \T\ dry. Musculoskeletal: Circulation, motion, and sensation intact. Capillary refill < 3 seconds, Reports pain in left arm and left leg. 21:55 Reassessment: Patient appears in no apparent distress at this time. Patient and/or ad5 family updated on plan of care and expected duration. Pain level reassessed. Patient is alert, oriented x 3, equal unlabored respirations, skin warm/dry/pink. 23:02 Reassessment: Patient appears in no apparent distress at this time. No changes from ad5 previously documented assessment. Patient and/or family updated on plan of care and expected duration. Pain level reassessed. Vital Signs: 19:22 BP 120 / 90; Pulse 90; Resp 18; Temp 98.8; Pulse Ox 99% ; Weight 89.36 kg; Height 5 ft. vg1 8 in. (172.72 cm); Pain 7/10; 20:59 BP 132 / 80; Pulse 71; Resp 16; Pulse Ox 99% ; ea 21:55 BP 123 / 81; Pulse 60; Resp 18 S; Pulse Ox 100% on R/A; ad5 23:01 BP 123 / 74; Pulse 55; Resp 16 S; Pulse Ox 100% on R/A; ad5 19:22 Body Mass Index 29.95 (89.36 kg, 172.72 cm) vg1 ED Course: 18:57 Patient arrived in ED. rg4 19:23 Triage completed. vg1 19:23 Arm band placed on. EKG completed in triage. Results shown to MD. vg1 20:15 Sai Palm MD is Attending Physician. mh7 20:23 Tami Pak, SILVESTRE is Primary Nurse. ea 20:57 No provider procedures requiring assistance completed. ad5 20:59 Patient has correct armband on for positive identification. Bed in low position. Call ea light in reach. Side rails up X2. 21:04 Initial lab(s) drawn, by me, sent to lab. Inserted saline lock: 20 gauge in left ad5 antecubital area, using aseptic technique. Blood collected. 21:18 XRAY Chest (1 view) In Process Unspecified. EDMS 23:52 IV discontinued, intact, bleeding controlled, No redness/swelling at site. Pressure ea dressing applied. Administered Medications: 22:49 Drug: Ketorolac 30 mg Route: IVP; Site: left antecubital; ad5 23:51 Follow up: Response: No adverse reaction; Pain is decreased ad5 Outcome: 23:21 Discharge ordered by . shailesh 23:52 Discharged to home with family. ea 23:52 Condition: stable 23:52 Discharge instructions given to patient, Instructed on discharge instructions, follow up and referral plans. medication usage, Demonstrated understanding of instructions, follow-up care, medications, Prescriptions given X 1. 23:53 Patient left the ED. ea Signatures: Dispatcher [employer] Ashley Lau rg4 Tami Pak RN RN ea Garcia, Victoria, RN RN vg1 Sai Palm MD MD [facility] Adis Pratt ad5
--- NOTE | 2021-01-20 23:22 | EDPHYS ---
Physician Documentation [facility] Name: Britton Fontanez Age: 20 yrs Sex: Male : 2000 Arrival Date: 01/20/2021 Time: 18:57 Bed 4 Private MD: ED Physician Sai Palm HPI: 01/20 21:41 This 20 yrs old Male presents to ER via Ambulatory with complaints of Arm Pain.[facility] 21:41 The patient or guardian reports chest pain that is located primarily in the anterior mh7 chest wall, left. The pain radiates to the left arm. Associated signs and symptoms: Pertinent positives: dizziness, shortness of breath, Pertinent negatives: abdominal pain, cough, diaphoresis, headache, lower extremity swelling, lightheadedness, nausea, near syncope, palpitations, recent travel, syncope, vomiting. The chest pain is described as sharp. Duration: The patient or guardian reports multiple episodes, that are intermittent, that wax and wane, with no pattern. Modifying factors: The symptoms are alleviated by nothing. the symptoms are aggravated by movement, palpation of area. Severity of pain: At its worst the pain was mild yesterday, in the emergency department the pain has improved moderately. Historical: - Allergies: 19:23 Amoxicillin; vg1 - PMHx: 19:23 ADD/ADHD; Anxiety; Panic Attacks; vg1 - Immunization history:: Adult Immunizations up to date. - Social history:: Smoking status: Patient denies any tobacco usage or history of. ROS: 21:41 Constitutional: Negative for fever, chills, and weight loss, Eyes: Negative for injury, mh7 pain, redness, and discharge, ENT: Negative for injury, pain, and discharge, Neck: Negative for injury, pain, and swelling, Abdomen/GI: Negative for abdominal pain, nausea, vomiting, diarrhea, and constipation, Back: Negative for injury and pain, : Negative for injury, bleeding, discharge, and swelling, Skin: Negative for injury, rash, and discoloration, Neuro: Negative for headache, weakness, numbness, tingling, and seizure, Psych: Negative for depression, anxiety, suicide ideation, homicidal ideation, and hallucinations, Allergy/Immunology: Negative for hives, rash, and allergies, Endocrine: Negative for neck swelling, polydipsia, polyuria, polyphagia, and marked weight changes, Hematologic/Lymphatic: Negative for swollen nodes, abnormal bleeding, and unusual bruising. Exam: 21:41 Constitutional: This is a well developed, well nourished patient who is awake, alert, mh7 and in no acute distress. Head/Face: Normocephalic, atraumatic. Eyes: Pupils equal round and reactive to light, extra-ocular motions intact. Lids and lashes normal. Conjunctiva and sclera are non-icteric and not injected. Cornea within normal limits. Periorbital areas with no swelling, redness, or edema. Neck: Trachea midline, no thyromegaly or masses palpated, and no cervical lymphadenopathy. Supple, full range of motion without nuchal rigidity, or vertebral point tenderness. No Meningismus. 21:41 Cardiovascular: Regular rate and rhythm with a normal S1 and S2. No gallops, murmurs, or rubs. Normal PMI, no JVD. No pulse deficits. Respiratory: Lungs have equal breath sounds bilaterally, clear to auscultation and percussion. No rales, rhonchi or wheezes noted. No increased work of breathing, no retractions or nasal flaring. Abdomen/GI: Soft, non-tender, with normal bowel sounds. No distension or tympany. No guarding or rebound. No evidence of tenderness throughout. Back: No spinal tenderness. No costovertebral tenderness. Full range of motion. Skin: Warm, dry with normal turgor. Normal color with no rashes, no lesions, and no evidence of cellulitis. MS/ Extremity: Pulses equal, no cyanosis. Neurovascular intact. Full, normal range of motion. Neuro: Awake and alert, GCS 15, oriented to person, place, time, and situation. Cranial nerves II-XII grossly intact. Motor strength 5/5 in all extremities. Sensory grossly intact. Cerebellar exam normal. Normal gait. Psych: Awake, alert, with orientation to person, place and time. Behavior, mood, and affect are within normal limits. 21:41 Chest/axilla: Inspection: normal, Palpation: tenderness, that is moderate, of the anterior aspect of left upper chest, that totally reproduces the patient's complaints, Axilla: are normal, Lymph nodes: lymphadenopathy is not appreciated. Vital Signs: 19:22 BP 120 / 90; Pulse 90; Resp 18; Temp 98.8; Pulse Ox 99% ; Weight 89.36 kg; Height 5 ft. vg1 8 in. (172.72 cm); Pain 7/10; 20:59 BP 132 / 80; Pulse 71; Resp 16; Pulse Ox 99% ; ea 21:55 BP 123 / 81; Pulse 60; Resp 18 S; Pulse Ox 100% on R/A; ad5 23:01 BP 123 / 74; Pulse 55; Resp 16 S; Pulse Ox 100% on R/A; ad5 19:22 Body Mass Index 29.95 (89.36 kg, 172.72 cm) vg1 MDM: 23:17 Differential diagnosis: acute myocardial infarction, acute pericarditis, anxiety, mh7 coronary artery disease chest wall pain, costochondritis, myocarditis, pericarditis, pneumonia, pneumothorax, pulmonary embolus. HEART Score: History: Slightly Suspicious (0), ECG: Normal (0), Age: < or = 45 years (0), Risk Factors: No Risk Factors Known (0), Troponin: < or = 1 x Normal Limit (0), Total Score = 0. Data reviewed: vital signs, nurses notes, lab test result(s), cardiac enzymes, CBC, electrolytes, EKG, radiologic studies, plain films. Data interpreted: Pulse oximetry: on room air is 100 %. Interpretation: normal. Counseling: I had a detailed discussion with the patient and/or guardian regarding: the historical points, exam findings, and any diagnostic results supporting the discharge/admit diagnosis, lab results, radiology results, the need for outpatient follow up, to return to the emergency department if symptoms worsen or persist or if there are any questions or concerns that arise at home. Response to treatment: the patient's symptoms have resolved after treatment, the patient's blood pressure is in an acceptable range, mental status has returned to baseline, the patient no longer shows bradycardia, the patient is not short of breath, the patient is not tachycardic, the patient's pain is gone, the patient's temperature has normalized. ED course: Well appearing, NAD, VSS, no focal neurological deficits. 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 He reports repeated motion of left upper extremity doing the new work.. 23:21 Patient medically screened. [facility] 01/20 20:57 Order name: Basic Metabolic Panel; Complete Time: 22:17 [facility] 01/20 20:57 Order name: CBC with Diff; Complete Time: 21:45 [facility] 01/20 20:57 Order name: LFT's; Complete Time: 22:17 [facility] 01/20 20:57 Order name: Magnesium; Complete Time: 22:17 [facility] 01/20 20:57 Order name: NT PRO-BNP; Complete Time: 22:17 [facility] 01/20 20:57 Order name: PT-INR; Complete Time: 22:17 [facility] 01/20 20:57 Order name: Troponin (emerg Dept Use Only); Complete Time: 22:17 [facility] 01/20 20:57 Order name: XRAY Chest (1 view); Complete Time: 22:17 [facility] 01/20 20:58 Order name: Phosphorus; Complete Time: 22:17 [facility] 01/20 21:51 Order name: Creatine Phosphokinase; Complete Time: 22:17 [facility] 01/20 21:51 Order name: D-Dimer; Complete Time: 22:17 [facility] 01/20 20:57 Order name: EKG; Complete Time: 20:58 [facility] 01/20 20:57 Order name: Cardiac monitoring; Complete Time: 20:58 [facility] 01/20 20:57 Order name: EKG - Nurse/Tech; Complete Time: 20:58 [facility] 01/20 20:57 Order name: IV Saline Lock; Complete Time: 21:04 [facility] 01/20 20:57 Order name: Labs collected and sent; Complete Time: 21:04 [facility] 01/20 20:57 Order name: O2 Per Protocol; Complete Time: 21:19 [facility] 01/20 20:57 Order name: O2 Sat Monitoring; Complete Time: 21:04 [facility] Administered Medications: 22:49 Drug: Ketorolac 30 mg Route: IVP; Site: left antecubital; ad5 23:51 Follow up: Response: No adverse reaction; Pain is decreased ad5 Disposition Summary: 01/20/21 23:21 Discharge Ordered Location: Home [facility] Problem: new [facility] Symptoms: have improved [facility] Condition: Stable [facility] Diagnosis - Chest pain, unspecified [facility] - Chest Wall Pain [facility] Followup: [facility] - With: Private Physician - When: 1 - 2 days - Reason: Worsening of condition, Recheck today's complaints, Continuance of care, Re-evaluation by your physician Discharge Instructions: - Discharge Summary Sheet [facility] - Chest Wall Pain, [id number] [facility] - Nonspecific Chest Pain, Adult, [id number] [facility] Forms: - Medication Reconciliation Form [facility] - Thank You Letter [facility] - Antibiotic Education [facility] - Prescription Opioid Use [facility] Prescriptions: - Ibuprofen 800 mg Oral Tablet - take 1 tablet by ORAL route every 8 hours As needed take with food; 15 tablet; [facility] Refills: 0, Product Selection Permitted Signatures: Dispatcher [employer] EDMS Akiko Henson, RN RN vg1 Sai Palm MD MD 7 Adis Pratt Corrections: (The following items were deleted from the chart) 21:51 21:45 CREATINE PHOSPHOKINASE+C.LAB.BRZ ordered. EDMS EDMS 21:51 21:45 D-DIMER+COAG.LAB.BRZ ordered. EDMS EDMS
[2021-01-21 00:37] VITALS: TEMP 98.8
[2021-01-21 00:44] VITALS: O2SAT 100
[2021-01-21 00:45] VITALS: BP 123/74
--- NOTE | 2021-01-21 13:00 | EKG ---
Test Date: 2021-01-20 Test Time: 19:20:42 Clinical Physician Assistant: KAYLA MEASUREMENT RESULTS: Intervals: Rate: 86 IN: 146 QRSD: 98 QT: 338 QTc: 404 [employer]: P: 52 IN: 146 QRS: 87 T: -7 INTERPRETIVE STATEMENTS: Normal sinus rhythm Nonspecific T wave abnormality Abnormal ECG Compared to ECG 09/09/2020 20:48:55 Sinus arrhythmia no longer present T-wave abnormality still present Electronically Signed On 01-21-21 12:59:23 CDT by Kalin Chaves
== END 2021-01-20 23:53 | disposition home or self-care (01) ==
LOC: ER 18:55
DX: R07.89 Other chest pain (principal); Z88.1 Allergy status to other antibiotic agents
CPT/HCPCS: 36415; 71045; 80048; 80076; 82550; 83735; 83880; 84100; 84484; 85025; 85379; 85610; 93005; 96374; 99284

== ENCOUNTER 2023-03-12 13:11 | Emergency (ER) | payer OTHER ==
--- OUTSIDE RECORDS SUMMARY | 2023-03-12 13:13 | XMS REPORT | Continuity of Care Document ---
:2000 Author Organization [facility] t Address [address] [place] [address] Care Team Providers Name Role Phone KAJAL MOYER Primary Care Physician Unavailable Lida Taylor MD Attending Clinician RADIOLOGY Attending Clinician Unavailable MYA GRAF Attending Clinician Unavailable MARILYN LEE Attending Clinician Unavailable Doctor Unassigned, [place] Attending Clinician Unavailable Jed Mi MD Attending Clinician Payers Payer Name Policy Type Policy Number Effective Date Expiration Date Edgar [facility] DUAL [id number] 2020 00:00:00 COMP HMO D SNP [facility] [id number] 2020 00:00:00 PLUS Problems Condition Condition Condition Status Onset Resolution Last Treating Co mments Source Name Details Category Date Date Treatment Clinician Date Submental Submental Disease Active [place] ris space space 03-22 Health infection infection 00:00: 00 Change in Change in Disease Active [place] ris voice voice 03-21 Health 00:00: 00 No known No known Disease Unive rs active active ity of problems problems [facility] Fever Fever Disease Active [facility] Allergies, Adverse Reactions, Alerts Allergy Allergy Status Severity Reaction(s) Onset Inactive Treating Comm ents Source Name Type Date Date Clinician Amoxicil Propensi Active Rash Univer s mickey ty to 6-24 ity of adverse 00:00: [place] reaction 00 Medical s Branch AMOXICIL DRUG Active Rash Univers MICKEY INGREDI 6-24 ity of 00:00: [place] 00 Medical Branch NO KNOWN Drug Active Univers ALLERGIE Class ity of S [facility] Social History Social Habit Start Date Stop Date Quantity Comments Source Exposure to Not sure [place] of SARS-CoV-2 (event) [facility] Gender identity [place] Sexual orientation [place] [facility] History of Social 2021-02-17 2021-02-17 [place] [facility] function 00:00:00 00:00:00 Alcohol intake 2021-02-16 2021-02-16 Current [facility] Aray[facility] lth 00:00:00 00:00:00 non-drinker of alcohol (finding) Sex Assigned At [birth year] Hi [place] alth 00:00:00 00:00:00 Smoking Status Start Date Stop Date Source [facility] Never smoked tobacco Do Heal th Medications Ordered Filled Start Stop Current Ordering Indication Dosage Frequency Signature Comments Components Source Medication Medication Date Date Medication? Clinician (SIG) Name Name jaspal- Yes [id number] 1{tbl} Take 1 Univers acetaminoph 6-24 tablet by ity of en-caff 00:00: mouth [place] 50-325-40 00 every 6 Medical mg tablet (six) Branch hours as needed for Pain (scale 7-10) (Headache) . methylpheni Yes 18mg Take 18 mg Univers date HCl 18 4-12 by mouth ity of mg 24 hr 19:23: every [place] tablet 15 morning. Medical Branch amitriptyli Yes 25mg Take 25 mg Univers ne 25 mg 4-12 by mouth ity of tablet 19:23: at [place] 15 bedtime. Medical Branch methylpheni Yes 18mg Take 18 mg Univers date HCl 18 4-12 by mouth ity of mg 24 hr 19:23: every [place] tablet 15 morning. Medical Branch amitriptyli Yes 25mg Take 25 mg Univers ne 25 mg 4-12 by mouth ity of tablet 19:23: at [place] 15 bedtime. Medical Branch methylpheni Yes 18mg Take 18 mg Univers date HCl 18 4-12 by mouth ity of mg 24 hr 19:23: every [place] tablet 15 morning. Medical Branch amitriptyli Yes 25mg Take 25 mg Univers ne 25 mg 4-12 by mouth ity of tablet 19:23: at [place] 15 bedtime. Medical Branch SERTraline Yes [id number] 50mg Take 1 U nivers 50 mg 4-12 tablet by ity of tablet 00:00: mouth at [place] 00 bedtime. Medical Branch SERTraline Yes [id number] 50mg Take 1 U nivers 50 mg 4-12 tablet by ity of tablet 00:00: mouth at [place] 00 bedtime. Medical Branch SERTraline Yes [id number] 50mg Take 1 U nivers 50 mg 4-12 tablet by ity of tablet 00:00: mouth at [place] 00 bedtime. Medical Branch naproxen Yes 500mg Q.5D Take 1 Do (NAPROSYN) 9-05 tablet by [facility] 500 mg 00:00: mouth 2 tablet 00 times daily (with meals). acetaminoph Yes 1{tbl} Take 1 Chawla rris en-codeine 9-05 tablet by [facility] (TYLENOL/CO 00:00: mouth DEINE #3) 00 every 4 300-30 mg hours as per tablet needed for Pain. Vital Signs Vital Name Observation Time Observation Value Comments Source Systolic blood 2021-01-09 04:00:00 123 mm[facility]Hg[facility] [place] Diastolic blood 2021-01-09 04:00:00 80 mm[Hg] [facility] Heart rate 2021-01-09 04:00:00 54 /min [facility] Respiratory rate 2021-01-09 04:00:00 16 /min [facility] Oxygen saturation in 2021-01-09 04:00:00 99 /min [facility] Arterial blood by [facility] Pulse oximetry Branch Body height 2021-01-09 01:36:00 172.7 cm [facility] Body weight 2021-01-09 01:36:00 89.812 kg [facility] BMI 2021-01-09 01:36:00 30.11 kg/m2 [facility] Body temperature 2021-01-09 01:36:00 37.28 Veronica [facility] Systolic blood 2021-01-09 04:00:00 123 mm[Hg] Univer sity of pressure [facility] Diastolic blood 2021-01-09 04:00:00 80 mm[Hg] Unive rsity of [facility] Heart rate 2021-01-09 04:00:00 54 /min [facility] Respiratory rate 2021-01-09 04:00:00 16 /min [facility] in 2021-01-09 04:00:00 99 /min [facility] Arterial blood by [facility] Pulse oximetry Branch Body height 2021-01-09 01:36:00 172.7 cm [facility] Body weight 2021-01-09 01:36:00 89.812 kg [facility] BMI 2021-01-09 01:36:00 30.11 kg/m2 [facility] Body temperature 2021-01-09 01:36:00 37.28 Veronica [facility] Procedures Procedure Date / Time Performed Performing Clinician [facility] e NOTICE OF PRIVACY 2021-01-09 01:30:40 Doctor Unassigned, No Univ [facility] CONSENT/REFUSAL FOR 2021-01-09 01:29:44 Doctor Unassigned, No [facility] DIAGNOSIS AND [facility] TREATMENT ASSIGNMENT OF BENEFITS 2020-02-21 17:14:30 Doctor Unassigned, No [facility] Plan of Care Planned Activity Planned Date Details Comments Source Future Scheduled Test 2023-04-17 00:00:00 IMM Influenza [facility] Seasonal (>/= 19 yrs) [code = IMM Influenza Seasonal (>/= 19 yrs)] Future Scheduled Test 1999[birth year] 00:00:00 COVID-19 Vaccine (#1) [facility] [code = COVID-19 Vaccine (#1)] Encounters Start End Encounter Admission Attending Care Care Encounter Source Date/Time Date/Time Type Type Clinicians Facility Department ID 2021-05-18 Emergency [facility] [id number] Univers 03:44:50 ity [facility] 2021-01-08 2021-01-08 [facility] [id number] 21:56:00 23:50:00 Lida Bender [id number] [place] [id number] [place] [id number] 2021-01-08 2021-01-08 Emergency [facility] [id number] Univers 21:56:00 23:50:00 Lida Bender [id number] ity [id number] [id number] [address] 2020-10-29 2020-10-29 Outpatient R RADIOLOGY [facility] [id number] Univers 00:00:00 00:00:00 ity [facility] 2020-10-23 2020-10-23 Outpatient R [facility] [id number] Univers 16:20:00 16:20:00 ity [facility] 2020-10-23 2020-10-23 Outpatient R LESIA [facility] [id number] Univers 13:00:00 13:00:00 MYA ity [facility] 2020-02-21 2020-02-21 Outpatient R ROSA, [facility] [id number] Univers 12:16:38 12:16:38 MARILYN ity o f [facility] 2020-02-21 2020-02-21 Orders Doctor TOBI [id number] 00:00:00 00:00:00 Only Unassigned, DERECK [id number] [facility] [id number] 2020-02-21 2020-02-21 Orders Doctor TOBI [id number] Univers 00:00:00 00:00:00 Only Unassigned, DERECK [id number] ity of [facility] [id number] [place] [id number] [place] [address] Branch 2019-02-23 2019-02-23 Telephone Jed Mi [id number] Univers 00:00:00 00:00:00 C [place] [id number] [id number] [place] [address] Branch 2019-02-23 2019-02-23 Telephone Jed Mi [id number] 00:00:00 00:00:00 Pérez [place] [id number] [place] [id number] 2017-05-02 2017-05-02 Outpatient [facility] [id number] [place] 00:00:00 00:00:00 Health 2017-04-18 2017-04-18 Outpatient [facility] [id number] [place] 00:00:00 00:00:00 Health 2017-03-21 2017-03-21 Emergency [facility] [id number] [place] 22:44:59 22:44:59 Health 2017-03-21 2017-03-21 Emergency [facility] [id number] [place] 21:04:42 21:04:42 Health Results This patient has no known results.
[2023-03-12 14:15] LABS: SARS-CoV-2 Antigen Rapid Res Negative (Negative)
--- NOTE | 2023-03-12 14:41 | EDPHYS ---
Physician Documentation [facility] Name: Britton Fontanez Age: 22 yrs Sex: Male : 2000 Arrival Date: 03/12/2023 Time: 13:11 Bed IW1 Private MD: ED Physician Matt Sumner HPI: 03/12 14:00 This 22 yrs old Male presents to ER via Ambulatory with complaints of Covid cp Test. 14:00 Is a 22-year-old male with past medical history significant for anxiety and panic cp attacks. Patient presents to the emergency department requesting a COVID screening test. Patient denies any symptoms. States he has concern for recent exposure at work. Historical: - Allergies: 13:40 Amoxicillin; jl7 - Home Meds: 13:40 Zoloft 50 mg Oral tab 1 tab once daily [Active]; jl7 - PMHx: 13:40 ADD/ADHD; Anxiety; Panic Attacks; jl7 - Immunization history:: Adult Immunizations unknown. - Social history:: Smoking status: Patient reports the use of cigarette tobacco products. ROS: 14:05 Constitutional: Negative for body aches, chills, fever, poor PO intake. cp 14:05 ENT: Negative for drainage from ear(s), sore throat, difficulty swallowing, difficulty cp handling secretions. 14:05 Respiratory: Negative for cough, shortness of breath, wheezing. 14:05 Abdomen/GI: Negative for abdominal pain, nausea, vomiting, and diarrhea. 14:05 : Negative for urinary symptoms. 14:05 Skin: Negative for rash. 14:05 All other systems are negative. Exam: 14:10 Constitutional: The patient appears in no acute distress, alert, awake, comfortable, cp non-toxic, well developed, well nourished. 14:10 Head/Face: Normocephalic, atraumatic. cp 14:10 Eyes: Periorbital structures: appear normal, Conjunctiva: normal, no exudate, no injection, Lids and lashes: appear normal, bilaterally. 14:10 ENT: External ear(s): are unremarkable, Nose: is normal, Mouth: Lips: moist, Oral mucosa: moist, Posterior pharynx: is normal, airway is patent, no erythema, no exudate. 14:10 Chest/axilla: Inspection: normal. 14:10 Cardiovascular: Rate: normal. 14:10 Respiratory: the patient does not display signs of respiratory distress, Respirations: normal, no use of accessory muscles, no retractions, labored breathing, is not present, Breath sounds: are clear throughout, no decreased breath sounds, no stridor, no wheezing. 14:10 Abdomen/GI: Exam negative for discomfort, distension, guarding, Inspection: abdomen appears normal. 14:10 Skin: no rash present. Vital Signs: 13:36 BP 127 / 77; Pulse 73; Resp 17; Temp 98.4; Pulse Ox 100% ; Weight 95.25 kg; Height 5 jl7 ft. 8 in. ; Pain 0/10; 13:36 Body Mass Index 31.93 (95.25 kg, 172.72 cm) 7 13:36 Pain Scale: Adult jl7 MDM: 13:50 Patient medically screened. cp 14:40 Data reviewed: vital signs, nurses notes, lab test result(s), and as a result, I will cp discharge patient. 14:40 Differential diagnosis: viral Infection. Counseling: I had a detailed discussion with cp the patient and/or guardian regarding the historical points, exam findings, and any diagnostic results supporting the discharge/admit diagnosis, lab results, to return to the emergency department if symptoms worsen or persist or if there are any questions or concerns that arise at home. 03/12 13:35 Order name: SHEKHAR HAMILTON; Complete Time: 14:39 cp Administered Medications: No medications were administered Disposition Summary: 03/12/23 14:40 Discharge Ordered Location: Home cp Problem: new cp Symptoms: are unchanged cp Condition: Stable cp Diagnosis - Encounter for screening for other viral diseases cp Followup: cp - With: Private Physician - When: 2 - 3 days - Reason: Worsening of condition Discharge Instructions: - Discharge Summary Sheet cp - COVID-19: What Your Test Results Mean - [facility] (04/14/2021) cp Forms: - Medication Reconciliation Form cp - Thank You Letter cp - Antibiotic Education cp - Prescription Opioid Use cp - Patient Portal Instructions cp - Leadership Thank You Letter cp Signatures: Dispatcher [employer] EDMS Matt Schaffer PA PA cp Leal, Jahala RN RN jl7
--- NOTE | 2023-03-12 14:41 | ER ---
Nurse's Notes [facility] Name: Britton Fontanez Age: 22 yrs Sex: Male : 2000 Arrival Date: 03/12/2023 Time: 13:11 Bed IW1 Private MD: Diagnosis: Encounter for screening for other viral diseases Presentation: 03/12 13:36 Chief complaint: Patient states: Wants covid test, denies symptoms. Coronavirus screen: jl7 At this time, the client does not indicate any symptoms associated with coronavirus-19. Ebola Screen: No symptoms or risks identified at this time. Initial Sepsis Screen: Does the patient meet any 2 criteria? No. Patient's initial sepsis screen is negative. Does the patient have a suspected source of infection? No. Patient's initial sepsis screen is negative. Risk Assessment: Do you want to hurt yourself or someone else? Patient reports no desire to harm self or others. Onset of symptoms is unknown. 13:36 Method Of Arrival: Ambulatory [facility] 13:36 Acuity: KAMERON 4 jl7 Triage Assessment: 13:40 General: Appears in no apparent distress. uncomfortable, Behavior is calm, cooperative. jl7 Pain: Denies pain. Historical: - Allergies: 13:40 Amoxicillin; jl7 - Home Meds: 13:40 Zoloft 50 mg Oral tab 1 tab once daily [Active]; jl7 - PMHx: 13:40 ADD/ADHD; Anxiety; Panic Attacks; jl7 - Immunization history:: Adult Immunizations unknown. - Social history:: Smoking status: Patient reports the use of cigarette tobacco products. Screenin:00 [facility] ED Fall Risk Assessment (Adult) History of falling in the last 3 months, jl7 including since admission No falls in past 3 months (0 pts). Abuse screen: Denies threats or abuse. Denies injuries from another. Nutritional screening: No deficits noted. Tuberculosis screening: No symptoms or risk factors identified. Vital Signs: 13:36 BP 127 / 77; Pulse 73; Resp 17; Temp 98.4; Pulse Ox 100% ; Weight 95.25 kg; Height 5 jl7 ft. 8 in. ; Pain 0/10; 13:36 Body Mass Index 31.93 (95.25 kg, 172.72 cm) [facility] 13:36 Pain Scale: Adult [facility] ED Course: 13:13 Patient arrived in ED. mr 13:18 Matt Schaffer PA is PHCP. cp 13:18 Matt Sumner MD is Attending Physician. cp 13:40 Triage completed. jl7 13:40 Arm band placed on right wrist. jl7 13:41 COVID swab sent to lab. jl7 14:00 Provided Education on: results. jl7 14:17 Patient has correct armband on for positive identification. jl7 14:17 No provider procedures requiring assistance completed. Patient did not have IV access jl7 during this emergency room visit. Administered Medications: No medications were administered Medication: 14:17 VIS not applicable for this client. jl7 Outcome: 14:40 Discharge ordered by MD. cp 14:47 Discharged to home ambulatory. jl7 14:47 Condition: stable 14:47 Discharge instructions given to patient, Instructed on discharge instructions, follow up and referral plans. Demonstrated understanding of instructions, follow-up care. 14:47 Patient left the ED. jl7 Signatures: Gabriela Cifuentes mr Matt Schaffer PA PA Papa Pagan RN RN jl7
[2023-03-12 15:13] VITALS: BP 127/77; TEMP 98.4; O2SAT 100
== END 2023-03-12 14:47 | disposition home or self-care (01) ==
LOC: ER 13:11
DX: Z20.822 Contact with and (suspected) exposure to COVID-19 (principal)
CPT/HCPCS: 36415; 87811; 99283

== ENCOUNTER 2023-04-01 09:48 | Emergency (ER) | payer OTHER ==
--- OUTSIDE RECORDS SUMMARY | 2023-04-01 09:52 | XMS REPORT | Continuity of Care Document ---
:2000 Author Organization [facility] t Address [address] [place] [address] Care Team Providers Name Role Phone KAJAL MOYER Primary Care Physician Unavailable Lida Taylor MD Attending Clinician RADIOLOGY Attending Clinician Unavailable MYA GRAF Attending Clinician Unavailable MARILYN LEE Attending Clinician Unavailable Doctor Unassigned, [place] Attending Clinician Unavailable Jed Mi MD Attending Clinician Payers Payer Name Policy Type Policy Number Effective Date Expiration Date Edgar [facility]BROSIO/[facility] DUAL [id number] 2020 00:00:[address] [facility] STAR [id number] 2020 00:00:00 PLUS Problems Condition Condition Condition [...] rs active active ity of problems problems [facility] Fever Fever Disease Active [facility] Allergies, Adverse Reactions, Alerts Allergy Allergy Status [...] Active Univers ALLERGIE Class ity of S [facility] Social History Social Habit Start Date Stop Date Quantity Comments Source Exposure to Not sure Vivian of SARS-CoV-2 (event) [facility] Gender identity [place] Sexual orientation [facility] History of Social 2021-02-17 2021-02-17 [facility] function 00:00:00 00:00:00 Alcohol intake 2021-02-16 2021-02-16 Current [facility] 00:00:00 00:00:00 non-drinker of alcohol (finding) Sex Assigned At [birth year] Hi Garcia alth 00:00:00 00:00:00 Smoking Status Start Date Stop Date Source Unknown if ever smoked [facility] Never smoked tobacco Do [facility]al th Medications Ordered Filled Start Stop Current Ordering Indication Dosage Frequency Signature Comments Components Source Medication Medication Date Date Medication? Clinician (SIG) Name Name jaspal- Yes [id number] 1{tbl} Take 1 Univers acetaminoph 6-24 tablet [...] by mouth ity of tablet 19:23: at [place] 15 bedtime. Medical Branch SERTraline Yes [id number] 50mg Take 1 U nivers 50 mg 4-12 tablet by ity of tablet 00:00: mouth at [place] 00 bedtime. Medical Branch SERTraline Yes [id number] 50mg Take 1 U nivers 50 mg 4-12 tablet by ity of tablet 00:00: mouth at [place] 00 bedtime. Medical Branch SERTraline Yes [id number] 50mg Take 1 U nivers 50 mg 4-12 tablet by ity of tablet 00:00: mouth at [place] 00 bedtime. Medical Branch naproxen Yes 500mg Q.5D Take 1 Do (NAPROSYN) 9-05 tablet by [facility] 500 mg 00:00: mouth 2 tablet 00 times daily (with meals). acetaminoph Yes 1{tbl} Take 1 Chawla rris en-codeine 9-05 tablet by [facility] (TYLENOL/CO 00:00: mouth DEINE #3) 00 every 4 300-30 mg hours as per tablet needed for Pain. naproxen Yes 500mg Q.5D Take 1 Do (NAPROSYN) 9-05 tablet by [facility] 500 mg 00:00: mouth 2 tablet 00 times daily (with meals). acetaminoph Yes 1{tbl} Take 1 Chawla rris en-codeine 9-05 tablet by [facility] (TYLENOL/CO 00:00: mouth DEINE #3) 00 every 4 300-30 mg hours as per tablet needed for Pain. Vital Signs Vital Name Observation Time Observation Value Comments Source Systolic blood 2021-01-09 04:00:00 123 mm[Hg] Univer sity of pressure [facility] Diastolic blood 2021-01-09 04:00:00 80 mm[Hg] Unive rsity of pressure [facility] Heart rate 2021-01-09 04:00:00 54 /min [facility] Respiratory rate 2021-01-09 04:00:00 16 /min [facility] Oxygen saturation in 2021-01-09 04:00:00 99 /min [facility] Arterial blood by [facility] Pulse oximetry Branch Body temperature 2021-01-09 01:36:[address] [facility] [place] [facility] [place] Body height 2021-01-09 01:36:00 172.7 cm [facility] [place] [facility] [place] Body weight 2021-01-09 01:36:00 89.812 kg [facility] [place] [facility] [place] BMI 2021-01-09 01:36:00 30.11 kg/m2 Universi ty of [facility] Systolic blood 2021-01-09 04:00:00 123 mm[Hg] Univer sity of pressure [facility] Diastolic blood 2021-01-09 04:00:00 80 mm[Hg] Unive rsity of [facility] Heart rate 2021-01-09 04:00:00 54 /min Universi ty of [facility] Respiratory rate 2021-01-09 04:00:00 16 /min [facility] Oxygen saturation in 2021-01-09 04:00:00 99 /min Vivian of Arterial blood by [facility] Pulse oximetry Branch Body temperature 2021-01-09 01:36:[address] [facility] [place] [facility] [place] Body height 2021-01-09 01:36:00 172.7 cm [facility] [place] [facility] [place] Body weight 2021-01-09 01:36:00 89.812 kg [facility] [place] [facility] [place] BMI 2021-01-09 01:36:00 30.11 kg/m2 Universi [facility] Procedures Procedure Date / Time Performed Performing Clinician Sour e NOTICE OF PRIVACY 2021-01-09 01:30:40 Doctor Unassigned, No [facility] PRACTICES [facility] CONSENT/REFUSAL FOR 2021-01-09 01:29:44 Doctor Unassigned, No [facility] DIAGNOSIS AND [facility] TREATMENT ASSIGNMENT OF BENEFITS 2020-02-21 17:14:30 Doctor Unassigned, No [facility] Plan of Care Planned Activity Planned Date Details Comments Source Future Scheduled Test 2023-04-17 00:00:00 IMM Influenza [facility] Seasonal (>/= 19 yrs) [code = IMM Influenza Seasonal (>/= 19 yrs)] Future Scheduled Test 2023-04-17 00:00:00 IMM Influenza [facility] Seasonal (>/= 19 yrs) [code = IMM Influenza Seasonal (>/= 19 yrs)] Future Scheduled Test 1999-01-12 00:00:00 COVID-19 Vaccine (#1) [facility] [code = COVID-19 Vaccine (#1)] Future Scheduled Test 1999-01-12 00:00:00 COVID-19 Vaccine (#1) [facility] [code = COVID-19 Vaccine (#1)] Encounters Start End Encounter Admission Attending Care Care Encounter Source Date/Time Date/Time Type Type Clinicians Facility Department ID 2021-05-18 Emergency [facility] [id number] [facility] 2021-01-08 2021-01-08 Emergency [facility] [id number] 21:56:00 23:50:00 Lida Bender [id number] [place] [id number] [place] [id number] [facility] 2021-01-08 2021-01-08 Emergency [facility] [id number] Univers 21:56:00 23:50:00 Lida Childston [id number] ity [facility] [id number] [facility] [id number] [address] 2020-10-29 2020-10-29 Outpatient R RADIOLOGY [facility] [id number] Univers [facility]:00[facility]00 [facility] 2020-10-23 2020-10-23 Outpatient R [facility] [id number] Univers 16:20:00 [facility]20[facility] 2020-10-23 2020-10-23 [id number] Univers 13:00:00 13:00:00 [facility] 2020-02-21 2020-02-21 Outpatient R ROSA, [facility] [id number] Univers 12:16:38 12:16:38 MARILYN calderon o f [facility] 2020-02-21 2020-02-21 Doris BRITTON [id number] 00:00:00 00:00:00 Only Unassigned, DERECK [id number] [place] [id number] 2020-02-21 2020-02-21 Orders Doctor TOBI [id number] Univers 00:00:00 00:00:00 Only Unassigned, DERECK [id number] ity of [place] [facility] [id number] Ir[place] as [id number] [place] [address] Branch 2019-02-23 2019-02-23 Telephone Jed Mi [id number] 00:00:00 00:00:00 C [place] [id number] [place] [id number] [facility] 2019-02-23 2019-02-23 Telephone Jed Mi [id number] [facility] 00:00:00 00:00:00 C [place] [id number] it y [id number] [id number] [place] [address] Branch 2017-05-02 2017-05-02 Outpatient [facility] [id number] [place] 00:00:00 00:00:00 Health 2017-04-18 2017-04-18 Outpatient [facility] [id number] [place] 00:00:00 00:00:00 [facility] 2017-03-21 2017-03-21 Emergency [facility] [id number] [place] 22:44:59 22:44:59 Health 2017-03-21 2017-03-21 Emergency [facility] [id number] [place] 21:04:42 21:04:42 Health Results This patient has no known results.
[2023-04-01 10:32] LABS: SARS-CoV-2 Antigen Rapid Res Negative (Negative)
--- NOTE | 2023-04-01 10:36 | EDPHYS ---
Physician Documentation [facility] Name: Britton Fontanez Age: 22 yrs Sex: Male : 2000 Arrival Date: 04/01/2023 Time: 09:48 Bed 17 Private MD: ED Physician Matt Sumner HPI: 04/01 10:15 This 22 yrs old Male presents to ER via Ambulatory with complaints of COVID sb4 test. 10:15 patient comes in requesting a covid test. states that several of his coworkers have sb4 tested positive. he denies any symptoms at this time. denies cough, congestion, body aches, fever, chest pain, shortness of breath. Historical: - Allergies: 10:00 Amoxicillin; ap3 - PMHx: 10:00 ADD/ADHD; Anxiety; Panic Attacks; ap3 - Immunization history:: Client reports having NOT received the Covid vaccine. - Social history:: Smoking status: Patient reports the use of cigarette tobacco products, denies chronic smoking, but will smoke occasionally. ROS: 10:15 Constitutional: Negative for fever, chills, and weight loss. sb4 10:15 All other systems are negative. Exam: 10:15 Constitutional: This is a well developed, well nourished patient who is awake, alert, sb4 and in no acute distress. Head/Face: Normocephalic, atraumatic. Eyes: Extra-ocular motions intact. Periorbital areas with no swelling, redness, or edema. ENT: Mucous membranes moist. Skin: Warm, dry with normal turgor. Normal color with no rashes, no lesions, and no evidence of cellulitis. Vital Signs: 09:59 Pulse 66; Resp 17; Temp 98.4; Pulse Ox 100% ; Weight 92.99 kg; ap3 10:01 BP 106 / 52; ap3 MDM: 09:52 Patient medically screened. sb4 10:15 Differential diagnosis: covid, anxiety. sb4 10:34 Data reviewed: vital signs, nurses notes, lab test result(s), and as a result, I will sb4 discharge patient. Counseling: I had a detailed discussion with the patient and/or guardian regarding the historical points, exam findings, and any diagnostic results supporting the discharge/admit diagnosis, to return to the emergency department if symptoms worsen or persist or if there are any questions or concerns that arise at home. 04/01 10:01 Order name: SHEKHAR HAMILTON; Complete Time: 10:33 sb4 Administered Medications: No medications were administered Disposition Summary: 04/01/23 10:35 Discharge Ordered Location: Home sb4 Problem: new sb4 Symptoms: are unchanged sb4 Condition: Stable sb4 Diagnosis - encounter for COVID-19 testing, negative result sb4 Followup: sb4 - With: Private Physician - When: As needed - Reason: Recheck today's complaints, Continuance of care, Re-evaluation by your physician Discharge Instructions: - Discharge Summary Sheet sb4 Forms: - Work release form sb4 - Medication Reconciliation Form sb4 - Thank You Letter sb4 - Antibiotic Education sb4 - Prescription Opioid Use sb4 - Patient Portal Instructions sb4 - Leadership Thank You Letter sb4 Signatures: Dispatcher [employer] Carole Saldaña RN RN Virginia Cid, HAMZAH GOODSON sb4
--- NOTE | 2023-04-01 10:36 | ER ---
Nurse's Notes [facility] Name: Britton Fontanez Age: 22 yrs Sex: Male : 2000 Arrival Date: 04/01/2023 Time: 09:48 Bed 17 Private MD: Diagnosis: encounter for COVID-19 testing, negative result Presentation: 04/01 09:59 Chief complaint: Patient states: he was exposed to covid at work and wants a test. ap3 patient denies any symptoms at this time. Coronavirus screen: At this time, the client does not indicate any symptoms associated with coronavirus-19. Ebola Screen: No symptoms or risks identified at this time. Initial Sepsis Screen: Does the patient meet any 2 criteria? No. Patient's initial sepsis screen is negative. Does the patient have a suspected source of infection? No. Patient's initial sepsis screen is negative. Risk Assessment: Do you want to hurt yourself or someone else? Patient reports no desire to harm self or others. Onset of symptoms is unknown. 09:59 Method Of Arrival: Ambulatory ap3 09:59 Acuity: KAMERON 5 ap3 Triage Assessment: 10:00 General: Appears in no apparent distress. Behavior is calm, cooperative, appropriate ap3 for age. Pain: Denies pain. EENT: No deficits noted. Neuro: No deficits noted. Level of Consciousness is awake, alert, obeys commands, Oriented to person, place, time, situation, Appropriate for age. Cardiovascular: Patient's skin is warm and dry. Respiratory: Airway is patent Respiratory effort is even, unlabored, Respiratory pattern is regular, symmetrical. GI: No deficits noted. : No deficits noted. Derm: No deficits noted. Historical: - Allergies: 10:00 Amoxicillin; ap3 - PMHx: 10:00 ADD/ADHD; Anxiety; Panic Attacks; ap3 - Immunization history:: Client reports having NOT received the Covid vaccine. - Social history:: Smoking status: Patient reports the use of cigarette tobacco products, denies chronic smoking, but will smoke occasionally. Screenin:01 [facility] ED Fall Risk Assessment (Adult) History of falling in the last 3 months, ap3 including since admission No falls in past 3 months (0 pts). Abuse screen: Denies threats or abuse. Nutritional screening: No deficits noted. Tuberculosis screening: No symptoms or risk factors identified. Vital Signs: 09:59 Pulse 66; Resp 17; Temp 98.4; Pulse Ox 100% ; Weight 92.99 kg; ap3 10:01 BP 106 / 52; ap3 ED Course: :52 Patient arrived in ED. im 09:52 Virginia Krause [facility] sb4 09:52 Matt Sumner MD is Attending Physician. sb4 09:59 Carole Chiu, RN is Primary Nurse. ap3 10:00 Triage completed. ap3 10:01 Arm band placed on right wrist. ap3 10:01 Patient has correct armband on for positive identification. Bed in low position. Call ap3 light in reach. Side rails up X 1. Adult w/ patient. Pulse ox on. NIBP on. 10:10 SARS RAPID Sent. bc6 10:39 Provided Education on: discharge education. ap3 10:39 No provider procedures requiring assistance completed. Patient did not have IV access ap3 during this emergency room visit. Administered Medications: No medications were administered Medication: 10:39 VIS not applicable for this client. ap3 Outcome: 10:35 Discharge ordered by . sb4 10:39 Discharged to home ambulatory. ap3 10:39 Condition: good 10:39 Discharge instructions given to patient, Instructed on discharge instructions, follow up and referral plans. Demonstrated understanding of instructions, follow-up care. 10:40 Patient left the ED. ap3 Signatures: Carole Chiu, RN RN ap3 Virginia Krause PA-C PA-C sb4 Nelly Hutchinson [facility] Jessica Donaldson im
[2023-04-01 10:46] VITALS: TEMP 98.4; O2SAT 100
[2023-04-01 10:47] VITALS: BP 106/52
== END 2023-04-01 10:40 | disposition home or self-care (01) ==
LOC: ER 09:48
DX: Z20.822 Contact with and (suspected) exposure to COVID-19 (principal)
CPT/HCPCS: 36415; 87811; 99283